=== PATIENT | male | born 1970 | race Two or more races ===

== ENCOUNTER 2020-02-13 20:13 | Inpatient (IN) | payer MEDICAID, OTHER ==
[~2020-02-13] VITALS: Ht 175.3 cm; Wt 147.8 kg
[2020-02-13] MEDS ORDERED: levoFLOXacin 750MG 150 ML IV ONE (21:00)
[2020-02-13] MEDS ORDERED: methylPREDNISolone SOD SUCC 125 MG/2 ML VL IV ONE (21:00)
[2020-02-13 22:19] LABS: Basophils # (auto) 0 10 ^3/uL (0-0.2); Basophils % (auto) 0.1 % (0.0-2.0); Eosinophils # (auto) 0 10 ^3/uL (0-0.8); Hematocrit 43.9 % (41.0-53.0); Hemoglobin 15.3 g/dL (13.5-17.5); Lymphocytes # (auto) 0.7 10 ^3/uL (0.4-5.4); Lymphocytes % (auto) 9.9 % (10.0-50.0); Mean Corpuscular Hemoglobin 28.8 pg (28.0-32.0); Mean Corpuscular Hgb Conc. 34.8 g/dL (32.0-36.0); Mean Corpuscular Volume 82.6 fL (80.0-100.0); Monocytes # (auto) 0.5 10 ^3/uL (0-1.3); Monocytes % (auto) 7.5 % (0.0-12.0); Neutrophils # (auto) 5.6 10 ^3/uL (1.6-8.6); Neutrophils % (auto) 82.5 % (37.0-80.0); Nucleated Red Blood Cells % 0.1 %; Platelet Count (auto) 174 10^3/uL (140-450); Red Blood Cells 5.31 10^6/uL (4.5-5.90); Red Cell Distribution Width 13.1 % (11.8-14.3); White Blood Cell 6.8 10^3/uL (4.4-10.8)
[2020-02-13 22:39] LABS: Anion Gap 10 (5-15); BUN/Creatinine Ratio 12.1; Blood Urea Nitrogen 11 mg/dL (7-18); Calcium 8.2 mg/dL (8.5-10.1); Carbon Dioxide 29 mmol/L (21-32); Chloride 87 mmol/L (98-107); GFR African American 115 mL/min; GFR Non-African American 95 mL/min; Glucose 114 mg/dL (74-106); Potassium 3.7 mmol/L (3.5-5.1); Sodium 126 mmol/L (136-145)
[2020-02-13 22:44] LABS: Alanine Aminotransferase 59 U/L (16-61); Alkaline Phosphatase 50 U/L (45-117); Aspartate Aminotransferase 83 U/L (15-37); Bilirubin, Total 0.7 mg/dL (0.2-1.0); Total Protein 8.3 g/dL (6.4-8.2)
[2020-02-13 22:52] LABS: INR 1.01 (0.9-1.15); Partial Thromboplastin Time 29.3 sec (23.0-31.2)
[2020-02-14 02:19] LABS: Urine Bacteria FEW /hpf (None Seen); Urine WBC 1 /hpf (0 - 3)
[2020-02-14 02:21] LABS: Urine Specific Gravity 1.006 (1.001-1.035)
[2020-02-14 02:22] LABS: Urine Blood 1+ /uL (Negative)
[2020-02-14] MEDS ORDERED: HYDROcodone-ACET 5/325MG TAB PO PRN (06:45)
[2020-02-14] MEDS ORDERED: MORPHINE SULF INJ 2 MG/ML SYRINGE 1ML IV PRN (06:45)
[2020-02-14] MEDS ORDERED: NITROGLYCERIN 0.4 MG SL TAB SL PRN (06:45)
[2020-02-14] MEDS ORDERED: ONDANSETRON HCL 4 MG/2 ML VIAL IV PRN (06:45)
[2020-02-14 07:42] LABS: Basophils # (auto) 0 10 ^3/uL (0-0.2); Basophils % (auto) 0.2 % (0.0-2.0); Eosinophils # (auto) 0 10 ^3/uL (0-0.8); Hematocrit 44.5 % (41.0-53.0); Hemoglobin 15.6 g/dL (13.5-17.5); Lymphocytes # (auto) 0.4 10 ^3/uL (0.4-5.4); Lymphocytes % (auto) 7.5 % (10.0-50.0); Mean Corpuscular Hemoglobin 29.3 pg (28.0-32.0); Mean Corpuscular Volume 83.6 fL (80.0-100.0); Monocytes # (auto) 0.2 10 ^3/uL (0-1.3); Monocytes % (auto) 3.6 % (0.0-12.0); Neutrophils # (auto) 4.5 10 ^3/uL (1.6-8.6); Neutrophils % (auto) 88.7 % (37.0-80.0); Nucleated Red Blood Cells % 0.3 %; Platelet Count (auto) 188 10^3/uL (140-450); Red Blood Cells 5.33 10^6/uL (4.5-5.90); White Blood Cell 5.1 10^3/uL (4.4-10.8)
[2020-02-14 08:08] LABS: Albumin 2.7 g/dL (3.4-5.0); Calcium 9.1 mg/dL (8.5-10.1)
[2020-02-14 08:16] LABS: BUN/Creatinine Ratio 15.9; Bilirubin, Total 0.7 mg/dL (0.2-1.0)
[2020-02-14] MEDS: ALBUTEROL SULF HFA 90MCG INH 200DOSE IN PRN ×2 (10:00→20:45)
[2020-02-14] MEDS: BUDESONIDE (INHALATION) 180 MCG IH IN SCH ×2 (10:00→19:08)
[2020-02-14] MEDS: PANTOPRAZOLE 40 MG/10 ML VIAL INJ IV SCH (12:13)
[2020-02-14] MEDS: DexAMETHasone SOD PHOS 10MG/1ML VIAL INJ IV SCH (12:13)
[2020-02-14] MEDS: CHOLECALCIFEROL (VITD3) 2,000 UNIT CAP/TAB PO SCH (12:14)
[2020-02-14] MEDS: MULTIPLE VITAMIN TAB PO SCH (12:14)
[2020-02-14] MEDS: DOXYCYCLINE 100MG/250ML 250 ML IV SCH ×2 (12:14→21:31)
[2020-02-14] MEDS: ZINC SULFATE 220mg CAP or TAB PO SCH (12:14)
[2020-02-14] MEDS: ENOXAPARIN SOD 40 MG/0.4 ML SYRINGE SC SCH (12:15)
[2020-02-14] MEDS: ASCORBIC ACID 1,000 MG TAB PO SCH (12:16)
[2020-02-14] MEDS: SODIUM CHLOR 0.9% PF (SALINE LOCK) 10ML VIAL/SYR IV SCH ×2 (14:16→21:31)
[2020-02-14 19:00] VITALS: BP 148/59
[2020-02-14 22:42] VITALS: BP 148/59
[2020-02-15 05:19] VITALS: BP 105/61
[2020-02-15] MEDS: SODIUM CHLOR 0.9% PF (SALINE LOCK) 10ML VIAL/SYR IV SCH ×3 (05:34→21:07)
[2020-02-15 06:13] LABS: Basophils # (auto) 0 10 ^3/uL (0-0.2); Eosinophils # (auto) 0 10 ^3/uL (0-0.8); Hematocrit 43.8 % (41.0-53.0); Hemoglobin 15.5 g/dL (13.5-17.5); Lymphocytes # (auto) 0.6 10 ^3/uL (0.4-5.4); Lymphocytes % (auto) 5.8 % (10.0-50.0); Mean Corpuscular Hemoglobin 29.7 pg (28.0-32.0); Mean Corpuscular Hgb Conc. 35.3 g/dL (32.0-36.0); Mean Corpuscular Volume 84.1 fL (80.0-100.0); Monocytes # (auto) 0.8 10 ^3/uL (0-1.3); Monocytes % (auto) 7.5 % (0.0-12.0); Neutrophils % (auto) 86.7 % (37.0-80.0); Platelet Count (auto) 256 10^3/uL (140-450); Red Blood Cells 5.21 10^6/uL (4.5-5.90); Red Cell Distribution Width 13.1 % (11.8-14.3); White Blood Cell 10.4 10^3/uL (4.4-10.8)
[2020-02-15 06:27] LABS: Potassium 3.7 mmol/L (3.5-5.1)
[2020-02-15] MEDS: BUDESONIDE (INHALATION) 180 MCG IH IN SCH ×2 (06:38→22:10)
[2020-02-15 06:40] LABS: Albumin 2.6 g/dL (3.4-5.0); BUN/Creatinine Ratio 24.3; Bilirubin, Total 0.5 mg/dL (0.2-1.0); Calcium 8.5 mg/dL (8.5-10.1); Total Protein 7.5 g/dL (6.4-8.2)
[2020-02-15 08:52] VITALS: BP 109/64
[2020-02-15] MEDS ORDERED: REMDESIVIR PER PHARMACY IV SCH (10:00)
[2020-02-15] MEDS: FUROSEMIDE 40 MG/4 ML VIAL IV SCH (11:30)
[2020-02-15] MEDS: PANTOPRAZOLE 40 MG/10 ML VIAL INJ IV SCH (11:30)
[2020-02-15] MEDS: ASCORBIC ACID 1,000 MG TAB PO SCH (11:31)
[2020-02-15] MEDS: ZINC SULFATE 220mg CAP or TAB PO SCH (11:31)
[2020-02-15] MEDS: POTASSIUM CHL 20 Meq TABLET PO SCH (11:31)
[2020-02-15] MEDS: DOXYCYCLINE 100MG/250ML 250 ML IV SCH ×2 (11:31→21:07)
[2020-02-15] MEDS: MULTIPLE VITAMIN TAB PO SCH (11:31)
[2020-02-15] MEDS: DexAMETHasone SOD PHOS 10MG/1ML VIAL INJ IV SCH (11:32)
[2020-02-15] MEDS: ENOXAPARIN SOD 40 MG/0.4 ML SYRINGE SC SCH (11:32)
[2020-02-15] MEDS: CHOLECALCIFEROL (VITD3) 2,000 UNIT CAP/TAB PO SCH (11:32)
[2020-02-15 12:27] VITALS: BP 114/76
[2020-02-15] MEDS: ALBUTEROL SULF HFA 90MCG INH 200DOSE IN PRN ×2 (14:13→22:10)
[2020-02-15] MEDS ORDERED: REMDESIVIR 200 MG in NS 210ml LOADING DOSE ADULT IV ONE (17:00)
[2020-02-15 17:10] VITALS: BP 147/53
[2020-02-15 20:00] VITALS: BP 109/62
[2020-02-15 23:33] VITALS: BP 109/62
[2020-02-16] VITALS (8 sets, daily range): BP systolic 100–154; BP diastolic 51–78
[2020-02-16] MEDS: SODIUM CHLOR 0.9% PF (SALINE LOCK) 10ML VIAL/SYR IV SCH ×3 (06:00→21:32)
[2020-02-16] MEDS: BUDESONIDE (INHALATION) 180 MCG IH IN SCH ×2 (06:34→19:10)
[2020-02-16] MEDS: ENOXAPARIN SOD 40 MG/0.4 ML SYRINGE SC SCH (10:00)
[2020-02-16] MEDS: DOXYCYCLINE 100MG/250ML 250 ML IV SCH ×2 (10:20→21:32)
[2020-02-16] MEDS: DexAMETHasone SOD PHOS 10MG/1ML VIAL INJ IV SCH (10:20)
[2020-02-16] MEDS: FUROSEMIDE 40 MG/4 ML VIAL IV SCH (10:20)
[2020-02-16] MEDS: PANTOPRAZOLE 40 MG/10 ML VIAL INJ IV SCH (10:20)
[2020-02-16] MEDS: CHOLECALCIFEROL (VITD3) 2,000 UNIT CAP/TAB PO SCH (10:21)
[2020-02-16] MEDS: ZINC SULFATE 220mg CAP or TAB PO SCH (10:21)
[2020-02-16] MEDS: ASCORBIC ACID 1,000 MG TAB PO SCH (10:21)
[2020-02-16] MEDS: MULTIPLE VITAMIN TAB PO SCH (10:21)
[2020-02-16] MEDS: POTASSIUM CHL 20 Meq TABLET PO SCH (10:21)
[2020-02-16] MEDS ORDERED: hydrALAZINE HCL 10 MG TAB PO PRN (10:45)
[2020-02-16] MEDS: ALBUTEROL SULF HFA 90MCG INH 200DOSE IN PRN (14:29)
[2020-02-16] MEDS: REMDESIVIR 100 MG in SODIUM CHL 0.9% 250 ML IV SCH (18:16)
[2020-02-16] MEDS: DOCUSATE SOD 100 MG CAP PO PRN (21:32)
[2020-02-16] MEDS ORDERED: TEMAZEPAM 15 MG CAP PO ONE (22:45)
[2020-02-17] MEDS: ALBUTEROL SULF HFA 90MCG INH 200DOSE IN PRN ×2 (00:49→07:15)
[2020-02-17 05:00] VITALS: BP 98/40
[2020-02-17] MEDS: SODIUM CHLOR 0.9% PF (SALINE LOCK) 10ML VIAL/SYR IV SCH ×3 (06:04→21:19)
[2020-02-17 07:02] LABS: Potassium 4.1 mmol/L (3.5-5.1)
[2020-02-17] MEDS: BUDESONIDE (INHALATION) 180 MCG IH IN SCH ×2 (07:15→22:00)
[2020-02-17 07:22] LABS: Albumin 2.7 g/dL (3.4-5.0); Bilirubin, Total 1.1 mg/dL (0.2-1.0); Calcium 8.6 mg/dL (8.5-10.1); Total Protein 7.6 g/dL (6.4-8.2)
[2020-02-17 08:53] VITALS: BP 125/83
[2020-02-17] MEDS: CHOLECALCIFEROL (VITD3) 2,000 UNIT CAP/TAB PO SCH (09:51)
[2020-02-17] MEDS: ASCORBIC ACID 1,000 MG TAB PO SCH (09:52)
[2020-02-17] MEDS: ZINC SULFATE 220mg CAP or TAB PO SCH (09:52)
[2020-02-17] MEDS: POTASSIUM CHL 20 Meq TABLET PO SCH (09:52)
[2020-02-17] MEDS: MULTIPLE VITAMIN TAB PO SCH (09:52)
[2020-02-17] MEDS: DexAMETHasone SOD PHOS 10MG/1ML VIAL INJ IV SCH (09:52)
[2020-02-17] MEDS: PANTOPRAZOLE 40 MG/10 ML VIAL INJ IV SCH (09:52)
[2020-02-17] MEDS: DOXYCYCLINE 100MG/250ML 250 ML IV SCH ×2 (09:53→21:19)
[2020-02-17] MEDS: ENOXAPARIN SOD 40 MG/0.4 ML SYRINGE SC SCH (09:53)
[2020-02-17] MEDS: FUROSEMIDE 40 MG/4 ML VIAL IV SCH (09:53)
[2020-02-17 13:00] VITALS: BP 127/67
[2020-02-17] MEDS: REMDESIVIR 100 MG in SODIUM CHL 0.9% 250 ML IV SCH (16:37)
[2020-02-17 17:00] VITALS: BP 123/70
[2020-02-17 20:00] VITALS: BP 114/50
[2020-02-17 21:19] VITALS: BP 114/50
[2020-02-17] MEDS: DOCUSATE SOD 100 MG CAP PO PRN (21:19)
[2020-02-17] MEDS: TEMAZEPAM 15 MG CAP PO PRN (21:19)
[2020-02-18 05:00] VITALS: BP 113/68
[2020-02-18] MEDS: ACETAMINOPHEN 500 MG TAB PO PRN (05:19)
[2020-02-18] MEDS: SODIUM CHLOR 0.9% PF (SALINE LOCK) 10ML VIAL/SYR IV SCH ×3 (05:19→21:44)
[2020-02-18 05:53] LABS: Basophils # (auto) 0 10 ^3/uL (0-0.2); Basophils % (auto) 0.1 % (0.0-2.0); Eosinophils # (auto) 0.1 10 ^3/uL (0-0.8); Eosinophils % (auto) 1.1 % (0.0-7.0); Hematocrit 46.4 % (41.0-53.0); Hemoglobin 15.8 g/dL (13.5-17.5); Lymphocytes # (auto) 0.7 10 ^3/uL (0.4-5.4); Lymphocytes % (auto) 5.7 % (10.0-50.0); Mean Corpuscular Hemoglobin 28.9 pg (28.0-32.0); Mean Corpuscular Volume 84.9 fL (80.0-100.0); Monocytes # (auto) 0.4 10 ^3/uL (0-1.3); Monocytes % (auto) 3.8 % (0.0-12.0); Neutrophils # (auto) 10.4 10 ^3/uL (1.6-8.6); Neutrophils % (auto) 89.3 % (37.0-80.0); Nucleated Red Blood Cells % 0.3 %; Platelet Count (auto) 354 10^3/uL (140-450); Red Blood Cells 5.46 10^6/uL (4.5-5.90); Red Cell Distribution Width 13.1 % (11.8-14.3); White Blood Cell 11.6 10^3/uL (4.4-10.8)
[2020-02-18 06:10] LABS: Albumin 2.6 g/dL (3.4-5.0); Calcium 8.7 mg/dL (8.5-10.1)
[2020-02-18 06:28] LABS: BUN/Creatinine Ratio 21.6; Bilirubin, Total 0.9 mg/dL (0.2-1.0); CRP High Sensitivity 12.5 mg/dL (< 0.3); Total Protein 7.7 g/dL (6.4-8.2)
[2020-02-18] MEDS: BUDESONIDE (INHALATION) 180 MCG IH IN SCH ×2 (07:20→19:18)
[2020-02-18] MEDS: ALBUTEROL SULF HFA 90MCG INH 200DOSE IN PRN ×2 (07:20→19:18)
[2020-02-18 09:00] VITALS: BP 103/61
[2020-02-18] MEDS ORDERED: diphenhdrAMINE HCL 50 MG/1 ML VL IV PRN (10:00)
[2020-02-18] MEDS: FUROSEMIDE 40 MG/4 ML VIAL IV SCH (11:05)
[2020-02-18] MEDS: DexAMETHasone SOD PHOS 10MG/1ML VIAL INJ IV SCH (11:05)
[2020-02-18] MEDS: DOXYCYCLINE 100MG/250ML 250 ML IV SCH ×2 (11:06→21:44)
[2020-02-18] MEDS: ZINC SULFATE 220mg CAP or TAB PO SCH (11:06)
[2020-02-18] MEDS: PANTOPRAZOLE 40 MG/10 ML VIAL INJ IV SCH (11:06)
[2020-02-18] MEDS: MULTIPLE VITAMIN TAB PO SCH (11:08)
[2020-02-18] MEDS: POTASSIUM CHL 20 Meq TABLET PO SCH (11:08)
[2020-02-18] MEDS: ASCORBIC ACID 1,000 MG TAB PO SCH (11:09)
[2020-02-18] MEDS: CHOLECALCIFEROL (VITD3) 2,000 UNIT CAP/TAB PO SCH (11:09)
[2020-02-18] MEDS: ENOXAPARIN SOD 40 MG/0.4 ML SYRINGE SC SCH (11:10)
[2020-02-18 13:00] VITALS: BP 152/77
[2020-02-18] MEDS: REMDESIVIR 100 MG in SODIUM CHL 0.9% 250 ML IV SCH (16:42)
[2020-02-18 16:54] VITALS: BP 100/63
[2020-02-18 21:00] VITALS: BP 117/64
[2020-02-19] MEDS: TEMAZEPAM 15 MG CAP PO PRN (01:51)
[2020-02-19] MEDS: SODIUM CHLOR 0.9% PF (SALINE LOCK) 10ML VIAL/SYR IV SCH ×3 (06:25→21:54)
[2020-02-19] MEDS: LORazepam 2MG/ML-1ML VIAL IV PRN (06:25)
[2020-02-19 09:00] VITALS: BP 115/65
[2020-02-19] MEDS: BUDESONIDE (INHALATION) 180 MCG IH IN SCH ×2 (10:00→19:22)
[2020-02-19] MEDS: FUROSEMIDE 40 MG/4 ML VIAL IV SCH (10:52)
[2020-02-19] MEDS: DexAMETHasone SOD PHOS 10MG/1ML VIAL INJ IV SCH (10:53)
[2020-02-19] MEDS: MULTIPLE VITAMIN TAB PO SCH (10:53)
[2020-02-19] MEDS: PANTOPRAZOLE 40 MG/10 ML VIAL INJ IV SCH (10:53)
[2020-02-19] MEDS: ZINC SULFATE 220mg CAP or TAB PO SCH (10:53)
[2020-02-19] MEDS: ENOXAPARIN SOD 40 MG/0.4 ML SYRINGE SC SCH (10:54)
[2020-02-19] MEDS: CHOLECALCIFEROL (VITD3) 2,000 UNIT CAP/TAB PO SCH (10:54)
[2020-02-19] MEDS: POTASSIUM CHL 20 Meq TABLET PO SCH (10:54)
[2020-02-19] MEDS: ASCORBIC ACID 1,000 MG TAB PO SCH (10:54)
[2020-02-19] MEDS ORDERED: IOHEXOL 350 MG/ML 100ML IJ ONE (12:45)
[2020-02-19 13:00] VITALS: BP 111/63
[2020-02-19 17:00] VITALS: BP 130/71
[2020-02-19] MEDS: REMDESIVIR 100 MG in SODIUM CHL 0.9% 250 ML IV SCH (17:23)
[2020-02-19] MEDS: ALBUTEROL SULF HFA 90MCG INH 200DOSE IN PRN (19:22)
[2020-02-19 22:00] VITALS: BP 132/77
[2020-02-20 05:00] VITALS: BP 111/50
[2020-02-20] MEDS: SODIUM CHLOR 0.9% PF (SALINE LOCK) 10ML VIAL/SYR IV SCH ×3 (06:09→21:17)
[2020-02-20] MEDS: ALBUTEROL SULF HFA 90MCG INH 200DOSE IN PRN (06:28)
[2020-02-20] MEDS: BUDESONIDE (INHALATION) 180 MCG IH IN SCH ×2 (06:28→21:30)
[2020-02-20] MEDS: DexAMETHasone SOD PHOS 10MG/1ML VIAL INJ IV SCH (09:40)
[2020-02-20] MEDS: FUROSEMIDE 40 MG/4 ML VIAL IV SCH (09:40)
[2020-02-20] MEDS: POTASSIUM CHL 20 Meq TABLET PO SCH (09:40)
[2020-02-20] MEDS: PANTOPRAZOLE 40 MG/10 ML VIAL INJ IV SCH (09:40)
[2020-02-20] MEDS: ZINC SULFATE 220mg CAP or TAB PO SCH (09:40)
[2020-02-20] MEDS: MULTIPLE VITAMIN TAB PO SCH (09:40)
[2020-02-20] MEDS: ENOXAPARIN SOD 40 MG/0.4 ML SYRINGE SC SCH (09:41)
[2020-02-20] MEDS: CHOLECALCIFEROL (VITD3) 2,000 UNIT CAP/TAB PO SCH (09:41)
[2020-02-20] MEDS: ASCORBIC ACID 1,000 MG TAB PO SCH (09:41)
[2020-02-20 09:43] LABS: Basophils # (auto) 0 10 ^3/uL (0-0.2); Basophils % (auto) 0.3 % (0.0-2.0); Eosinophils # (auto) 0.2 10 ^3/uL (0-0.8); Eosinophils % (auto) 1.8 % (0.0-7.0); Hematocrit 43.8 % (41.0-53.0); Hemoglobin 15.1 g/dL (13.5-17.5); Lymphocytes # (auto) 0.4 10 ^3/uL (0.4-5.4); Lymphocytes % (auto) 3.7 % (10.0-50.0); Mean Corpuscular Hemoglobin 29.5 pg (28.0-32.0); Mean Corpuscular Hgb Conc. 34.5 g/dL (32.0-36.0); Mean Corpuscular Volume 85.3 fL (80.0-100.0); Monocytes # (auto) 0.3 10 ^3/uL (0-1.3); Monocytes % (auto) 2.9 % (0.0-12.0); Neutrophils % (auto) 91.3 % (37.0-80.0); Platelet Count (auto) 370 10^3/uL (140-450); Red Blood Cells 5.13 10^6/uL (4.5-5.90); Red Cell Distribution Width 13.5 % (11.8-14.3); White Blood Cell 9.9 10^3/uL (4.4-10.8)
[2020-02-20] MEDS: ENOXAPARIN SOD 100 MG/1 ML SYRINGE SC SCH ×2 (10:00→22:55)
[2020-02-20 10:07] LABS: Albumin 2.3 g/dL (3.4-5.0); BUN/Creatinine Ratio 21.6; Calcium 8.4 mg/dL (8.5-10.1); Potassium 4.1 mmol/L (3.5-5.1)
[2020-02-20 10:11] LABS: Bilirubin, Total 0.7 mg/dL (0.2-1.0); Total Protein 7.2 g/dL (6.4-8.2)
[2020-02-20] MEDS ORDERED: ENOXAPARIN SOD 60 MG/0.6 ML SYRINGE SC ONE (11:15)
[2020-02-20 12:00] VITALS: BP 102/59
[2020-02-20 15:06] VITALS: BP 136/76
[2020-02-20 15:33] VITALS: BP 117/62
[2020-02-20 17:00] VITALS: BP 116/69
[2020-02-20 21:55] VITALS: BP 134/70
[2020-02-21] MEDS: ALBUTEROL SULF HFA 90MCG INH 200DOSE IN PRN ×2 (01:15→23:34)
[2020-02-21 05:00] VITALS: BP 110/70
[2020-02-21] MEDS: SODIUM CHLOR 0.9% PF (SALINE LOCK) 10ML VIAL/SYR IV SCH ×3 (05:31→22:00)
[2020-02-21] MEDS: BUDESONIDE (INHALATION) 180 MCG IH IN SCH ×2 (07:00→22:10)
[2020-02-21 09:00] VITALS: BP 101/62
[2020-02-21] MEDS: DexAMETHasone SOD PHOS 10MG/1ML VIAL INJ IV SCH (10:06)
[2020-02-21] MEDS: PANTOPRAZOLE 40 MG/10 ML VIAL INJ IV SCH (10:07)
[2020-02-21] MEDS: ZINC SULFATE 220mg CAP or TAB PO SCH (10:07)
[2020-02-21] MEDS: CHOLECALCIFEROL (VITD3) 2,000 UNIT CAP/TAB PO SCH (10:07)
[2020-02-21] MEDS: ASCORBIC ACID 1,000 MG TAB PO SCH (10:07)
[2020-02-21] MEDS: POTASSIUM CHL 20 Meq TABLET PO SCH (10:07)
[2020-02-21] MEDS: MULTIPLE VITAMIN TAB PO SCH (10:07)
[2020-02-21] MEDS: FUROSEMIDE 40 MG/4 ML VIAL IV SCH (10:07)
[2020-02-21] MEDS: ENOXAPARIN SOD 100 MG/1 ML SYRINGE SC SCH ×2 (10:08→23:14)
[2020-02-21] MEDS: DOCUSATE SOD 100 MG CAP PO PRN (11:06)
[2020-02-21 13:00] VITALS: BP 90/54
[2020-02-21 17:00] VITALS: BP 125/77
[2020-02-21 22:00] VITALS: BP 111/66
[2020-02-22 05:00] VITALS: BP 99/59
[2020-02-22] MEDS: SODIUM CHLOR 0.9% PF (SALINE LOCK) 10ML VIAL/SYR IV SCH ×3 (05:31→22:09)
[2020-02-22] MEDS: BUDESONIDE (INHALATION) 180 MCG IH IN SCH ×2 (07:05→22:00)
[2020-02-22] MEDS: ALBUTEROL SULF HFA 90MCG INH 200DOSE IN PRN ×2 (07:05→19:26)
[2020-02-22 08:00] VITALS: BP 109/71
[2020-02-22] MEDS: PANTOPRAZOLE 40 MG/10 ML VIAL INJ IV SCH (10:13)
[2020-02-22] MEDS: FUROSEMIDE 40 MG/4 ML VIAL IV SCH (10:13)
[2020-02-22] MEDS: DexAMETHasone SOD PHOS 10MG/1ML VIAL INJ IV SCH (10:13)
[2020-02-22] MEDS: ZINC SULFATE 220mg CAP or TAB PO SCH (10:14)
[2020-02-22] MEDS: MULTIPLE VITAMIN TAB PO SCH (10:14)
[2020-02-22] MEDS: POTASSIUM CHL 20 Meq TABLET PO SCH (10:14)
[2020-02-22] MEDS: ASCORBIC ACID 1,000 MG TAB PO SCH (10:14)
[2020-02-22] MEDS: CHOLECALCIFEROL (VITD3) 2,000 UNIT CAP/TAB PO SCH (10:14)
[2020-02-22] MEDS: ENOXAPARIN SOD 100 MG/1 ML SYRINGE SC SCH ×2 (10:15→22:25)
[2020-02-22] MEDS: DOCUSATE SOD 100 MG CAP PO PRN (10:57)
[2020-02-22 13:00] VITALS: BP 117/79
[2020-02-22 14:16] LABS: Basophils # (auto) 0 10 ^3/uL (0-0.2); Basophils % (auto) 0.1 % (0.0-2.0); Monocytes # (auto) 0.4 10 ^3/uL (0-1.3); Red Cell Distribution Width 13.3 % (11.8-14.3)
[2020-02-22 14:17] LABS: Eosinophils # (auto) 0 10 ^3/uL (0-0.8); Eosinophils % (auto) 0.3 % (0.0-7.0); Hematocrit 49.8 % (41.0-53.0); Hemoglobin 16.9 g/dL (13.5-17.5); Lymphocytes # (auto) 0.5 10 ^3/uL (0.4-5.4); Lymphocytes % (auto) 4.2 % (10.0-50.0); Mean Corpuscular Volume 85.2 fL (80.0-100.0); Monocytes % (auto) 2.8 % (0.0-12.0); Neutrophils # (auto) 11.8 10 ^3/uL (1.6-8.6); Neutrophils % (auto) 92.6 % (37.0-80.0); Red Blood Cells 5.84 10^6/uL (4.5-5.90); White Blood Cell 12.7 10^3/uL (4.4-10.8)
[2020-02-22 14:34] LABS: Potassium 4.5 mmol/L (3.5-5.1)
[2020-02-22 14:35] LABS: Calcium 9.3 mg/dL (8.5-10.1)
[2020-02-22 14:42] LABS: Platelet Count (auto) 497 10^3/uL (140-450)
[2020-02-22 17:00] VITALS: BP 108/64
[2020-02-22 22:00] VITALS: BP 106/76
[2020-02-23] MEDS: TEMAZEPAM 15 MG CAP PO PRN
[2020-02-23 05:00] VITALS: BP 99/73
[2020-02-23] MEDS: SODIUM CHLOR 0.9% PF (SALINE LOCK) 10ML VIAL/SYR IV SCH ×3 (06:01→23:20)
[2020-02-23] MEDS: BUDESONIDE (INHALATION) 180 MCG IH IN SCH ×2 (06:32→20:36)
[2020-02-23] MEDS: ALBUTEROL SULF HFA 90MCG INH 200DOSE IN PRN ×2 (06:32→20:36)
[2020-02-23 09:00] VITALS: BP 106/81
[2020-02-23] MEDS: PANTOPRAZOLE 40 MG/10 ML VIAL INJ IV SCH (09:58)
[2020-02-23] MEDS: POTASSIUM CHL 20 Meq TABLET PO SCH (09:59)
[2020-02-23] MEDS: DexAMETHasone SOD PHOS 10MG/1ML VIAL INJ IV SCH (09:59)
[2020-02-23] MEDS: ENOXAPARIN SOD 100 MG/1 ML SYRINGE SC SCH (09:59)
[2020-02-23] MEDS: MULTIPLE VITAMIN TAB PO SCH (10:00)
[2020-02-23] MEDS: ASCORBIC ACID 1,000 MG TAB PO SCH (10:00)
[2020-02-23] MEDS: ZINC SULFATE 220mg CAP or TAB PO SCH (10:00)
[2020-02-23] MEDS: CHOLECALCIFEROL (VITD3) 2,000 UNIT CAP/TAB PO SCH (10:01)
[2020-02-23] MEDS: FUROSEMIDE 40 MG/4 ML VIAL IV SCH (10:01)
[2020-02-23] MEDS: DOCUSATE SOD 100 MG CAP PO PRN (10:10)
[2020-02-23 13:00] VITALS: BP 111/64
[2020-02-23 17:00] VITALS: BP 108/62
[2020-02-23] MEDS: ENOXAPARIN SOD 120 MG/0.8 ML SYRINGE SC SCH (23:23)
[2020-02-24 05:00] VITALS: BP 131/73
[2020-02-24] MEDS: SODIUM CHLOR 0.9% PF (SALINE LOCK) 10ML VIAL/SYR IV SCH ×3 (06:22→21:23)
[2020-02-24] MEDS: ALBUTEROL SULF HFA 90MCG INH 200DOSE IN PRN ×2 (07:55→21:28)
[2020-02-24] MEDS: BUDESONIDE (INHALATION) 180 MCG IH IN SCH ×2 (07:55→21:28)
[2020-02-24] MEDS: FUROSEMIDE 40 MG/4 ML VIAL IV SCH (10:06)
[2020-02-24] MEDS: PANTOPRAZOLE 40 MG/10 ML VIAL INJ IV SCH (10:08)
[2020-02-24] MEDS: LACTULOSE 20Gm/30ML SOLN PO SCH (10:09)
[2020-02-24] MEDS: DexAMETHasone SOD PHOS 10MG/1ML VIAL INJ IV SCH (10:11)
[2020-02-24] MEDS: ZINC SULFATE 220mg CAP or TAB PO SCH (10:13)
[2020-02-24] MEDS: POTASSIUM CHL 20 Meq TABLET PO SCH (10:14)
[2020-02-24] MEDS: MULTIPLE VITAMIN TAB PO SCH (10:15)
[2020-02-24] MEDS: ASCORBIC ACID 1,000 MG TAB PO SCH (10:16)
[2020-02-24] MEDS: CHOLECALCIFEROL (VITD3) 2,000 UNIT CAP/TAB PO SCH (10:19)
[2020-02-24] MEDS: ENOXAPARIN SOD 120 MG/0.8 ML SYRINGE SC SCH ×2 (10:22→21:23)
[2020-02-24] MEDS: TEMAZEPAM 15 MG CAP PO PRN (21:23)
[2020-02-25 06:01] VITALS: BP 100/65
[2020-02-25] MEDS: SODIUM CHLOR 0.9% PF (SALINE LOCK) 10ML VIAL/SYR IV SCH ×3 (06:09→21:33)
[2020-02-25 06:11] LABS: Basophils # (auto) 0 10 ^3/uL (0-0.2); Basophils % (auto) 0.2 % (0.0-2.0); Eosinophils # (auto) 0 10 ^3/uL (0-0.8); Eosinophils % (auto) 0.1 % (0.0-7.0); Lymphocytes # (auto) 1.2 10 ^3/uL (0.4-5.4); Mean Corpuscular Hgb Conc. 34.7 g/dL (32.0-36.0); Monocytes # (auto) 0.7 10 ^3/uL (0-1.3); Monocytes % (auto) 5.3 % (0.0-12.0)
[2020-02-25 06:14] LABS: Hematocrit 51.3 % (41.0-53.0); Hemoglobin 17.8 g/dL (13.5-17.5); Lymphocytes % (auto) 9.4 % (10.0-50.0); Mean Corpuscular Hemoglobin 29.4 pg (28.0-32.0); Mean Corpuscular Volume 84.6 fL (80.0-100.0); Neutrophils # (auto) 10.6 10 ^3/uL (1.6-8.6); Nucleated Red Blood Cells % 0.4 %; Platelet Count (auto) 441 10^3/uL (140-450); Red Blood Cells 6.06 10^6/uL (4.5-5.90); Red Cell Distribution Width 13.4 % (11.8-14.3); White Blood Cell 12.5 10^3/uL (4.4-10.8)
[2020-02-25 06:26] LABS: Potassium 4.5 mmol/L (3.5-5.1)
[2020-02-25 06:34] LABS: Bilirubin, Total 0.8 mg/dL (0.2-1.0); Calcium 9.8 mg/dL (8.5-10.1); Total Protein 8.6 g/dL (6.4-8.2)
[2020-02-25 08:00] VITALS: BP 96/61
[2020-02-25] MEDS: BUDESONIDE (INHALATION) 180 MCG IH IN SCH ×2 (10:00→23:30)
[2020-02-25] MEDS: CHOLECALCIFEROL (VITD3) 2,000 UNIT CAP/TAB PO SCH (10:21)
[2020-02-25] MEDS: ENOXAPARIN SOD 120 MG/0.8 ML SYRINGE SC SCH ×2 (10:21→21:33)
[2020-02-25] MEDS: POTASSIUM CHL 20 Meq TABLET PO SCH (10:22)
[2020-02-25] MEDS: MULTIPLE VITAMIN TAB PO SCH (10:22)
[2020-02-25] MEDS: LACTULOSE 20Gm/30ML SOLN PO SCH (10:22)
[2020-02-25] MEDS: PANTOPRAZOLE 40 MG TAB PO SCH (10:22)
[2020-02-25] MEDS: ZINC SULFATE 220mg CAP or TAB PO SCH (10:22)
[2020-02-25] MEDS: ASCORBIC ACID 1,000 MG TAB PO SCH (10:22)
[2020-02-25] MEDS: FUROSEMIDE 40 MG/4 ML VIAL IV SCH (10:23)
[2020-02-25] MEDS: ALBUTEROL SULF HFA 90MCG INH 200DOSE IN PRN ×2 (10:31→23:30)
[2020-02-25 10:37] VITALS: BP 96/61
[2020-02-25 12:00] VITALS: BP 118/78
[2020-02-25] MEDS: MORPHINE SULFATE 4 MG/ML SYR/VIAL IV PRN (12:30)
[2020-02-25 17:00] VITALS: BP 110/70
[2020-02-25] MEDS: TEMAZEPAM 15 MG CAP PO PRN (21:33)
[2020-02-25 22:00] VITALS: BP 99/60
[2020-02-26] MEDS: LORazepam 2MG/ML-1ML VIAL IV PRN (03:41)
[2020-02-26] MEDS: SODIUM CHLOR 0.9% PF (SALINE LOCK) 10ML VIAL/SYR IV SCH ×3 (05:38→21:49)
[2020-02-26] MEDS: ALBUTEROL SULF HFA 90MCG INH 200DOSE IN PRN ×2 (08:00→18:59)
[2020-02-26] MEDS: BUDESONIDE (INHALATION) 180 MCG IH IN SCH ×2 (08:00→18:59)
[2020-02-26 09:00] VITALS: BP 103/65
[2020-02-26] MEDS: MORPHINE SULFATE 4 MG/ML SYR/VIAL IV PRN ×2 (09:05→21:50)
[2020-02-26] MEDS: ASCORBIC ACID 1,000 MG TAB PO SCH (10:00)
[2020-02-26] MEDS: CHOLECALCIFEROL (VITD3) 2,000 UNIT CAP/TAB PO SCH (10:00)
[2020-02-26] MEDS: POTASSIUM CHL 20 Meq TABLET PO SCH (10:19)
[2020-02-26] MEDS: LACTULOSE 20Gm/30ML SOLN PO SCH (10:19)
[2020-02-26] MEDS: ZINC SULFATE 220mg CAP or TAB PO SCH (10:21)
[2020-02-26] MEDS: MULTIPLE VITAMIN TAB PO SCH (10:21)
[2020-02-26] MEDS: PANTOPRAZOLE 40 MG TAB PO SCH (10:21)
[2020-02-26] MEDS: ENOXAPARIN SOD 120 MG/0.8 ML SYRINGE SC SCH (10:22)
[2020-02-26] MEDS: FUROSEMIDE 40 MG/4 ML VIAL IV SCH (10:23)
[2020-02-26 13:00] VITALS: BP 102/65
[2020-02-26 17:00] VITALS: BP 119/71
[2020-02-26] MEDS: ENOXAPARIN SOD 40 MG/0.4 ML SYRINGE SC SCH (21:49)
[2020-02-26 22:00] VITALS: BP 93/73
[2020-02-26] MEDS ORDERED: ENOXAPARIN SOD 120 MG/0.8 ML SYRINGE SC SCH (22:00)
[2020-02-27] MEDS: LORazepam 2MG/ML-1ML VIAL IV PRN (03:08)
[2020-02-27 05:00] VITALS: BP 107/60
[2020-02-27] MEDS: SODIUM CHLOR 0.9% PF (SALINE LOCK) 10ML VIAL/SYR IV SCH ×3 (05:45→22:14)
[2020-02-27 07:16] LABS: Basophils # (auto) 0.1 10 ^3/uL (0-0.2); Basophils % (auto) 0.4 % (0.0-2.0); Eosinophils # (auto) 0.1 10 ^3/uL (0-0.8); Eosinophils % (auto) 0.9 % (0.0-7.0); Hematocrit 47.9 % (41.0-53.0); Hemoglobin 16.5 g/dL (13.5-17.5); Lymphocytes # (auto) 1.1 10 ^3/uL (0.4-5.4); Lymphocytes % (auto) 7.8 % (10.0-50.0); Mean Corpuscular Hemoglobin 29.2 pg (28.0-32.0); Mean Corpuscular Hgb Conc. 34.4 g/dL (32.0-36.0); Mean Corpuscular Volume 84.8 fL (80.0-100.0); Neutrophils # (auto) 11.6 10 ^3/uL (1.6-8.6); Neutrophils % (auto) 83.9 % (37.0-80.0); Nucleated Red Blood Cells % 0.1 %; Platelet Count (auto) 294 10^3/uL (140-450); Red Blood Cells 5.65 10^6/uL (4.5-5.90); Red Cell Distribution Width 13.3 % (11.8-14.3); White Blood Cell 13.9 10^3/uL (4.4-10.8)
[2020-02-27 07:23] VITALS: BP 103/65
[2020-02-27 07:26] LABS: Potassium 4.1 mmol/L (3.5-5.1)
[2020-02-27 07:36] LABS: Albumin 2.8 g/dL (3.4-5.0); BUN/Creatinine Ratio 36.7; Bilirubin, Total 0.9 mg/dL (0.2-1.0); Total Protein 7.9 g/dL (6.4-8.2)
[2020-02-27 08:50] VITALS: BP 103/70
[2020-02-27] MEDS: ASCORBIC ACID 1,000 MG TAB PO SCH (10:00)
[2020-02-27] MEDS: BUDESONIDE (INHALATION) 180 MCG IH IN SCH ×2 (10:00→21:19)
[2020-02-27] MEDS: CHOLECALCIFEROL (VITD3) 2,000 UNIT CAP/TAB PO SCH (10:00)
[2020-02-27] MEDS: LACTULOSE 20Gm/30ML SOLN PO SCH (10:43)
[2020-02-27] MEDS: FUROSEMIDE 40 MG/4 ML VIAL IV SCH (10:44)
[2020-02-27] MEDS: PANTOPRAZOLE 40 MG TAB PO SCH (10:44)
[2020-02-27] MEDS: ENOXAPARIN SOD 40 MG/0.4 ML SYRINGE SC SCH ×2 (10:44→22:14)
[2020-02-27] MEDS: MULTIPLE VITAMIN TAB PO SCH (10:45)
[2020-02-27] MEDS: ZINC SULFATE 220mg CAP or TAB PO SCH (10:45)
[2020-02-27] MEDS: POTASSIUM CHL 20 Meq TABLET PO SCH (10:45)
[2020-02-27 13:00] VITALS: BP 103/69
[2020-02-27] MEDS: ALBUTEROL SULF HFA 90MCG INH 200DOSE IN PRN ×2 (13:32→23:03)
[2020-02-27 17:00] VITALS: BP 96/70
[2020-02-27 21:36] VITALS: BP 101/70
[2020-02-27] MEDS: DOCUSATE SOD 100 MG CAP PO PRN (22:15)
[2020-02-27] MEDS: TEMAZEPAM 15 MG CAP PO PRN (22:15)
[2020-02-28 05:24] VITALS: BP 93/60
[2020-02-28] MEDS: SODIUM CHLOR 0.9% PF (SALINE LOCK) 10ML VIAL/SYR IV SCH ×3 (06:00→21:44)
[2020-02-28 06:11] VITALS: BP 101/70
[2020-02-28 08:54] VITALS: BP 90/60
[2020-02-28] MEDS: ZINC SULFATE 220mg CAP or TAB PO SCH (09:16)
[2020-02-28] MEDS: LACTULOSE 20Gm/30ML SOLN PO SCH ×2 (09:16→09:30)
[2020-02-28] MEDS: PANTOPRAZOLE 40 MG TAB PO SCH (09:17)
[2020-02-28] MEDS: CHOLECALCIFEROL (VITD3) 2,000 UNIT CAP/TAB PO SCH (09:17)
[2020-02-28] MEDS: ASCORBIC ACID 1,000 MG TAB PO SCH (09:18)
[2020-02-28] MEDS: MULTIPLE VITAMIN TAB PO SCH (09:18)
[2020-02-28] MEDS: ENOXAPARIN SOD 40 MG/0.4 ML SYRINGE SC SCH ×2 (09:18→21:44)
[2020-02-28] MEDS: FUROSEMIDE 40 MG/4 ML VIAL IV SCH (09:30)
[2020-02-28] MEDS: POTASSIUM CHL 20 Meq TABLET PO SCH (09:31)
[2020-02-28 12:16] LABS: Basophils # (auto) 0 10 ^3/uL (0-0.2); Basophils % (auto) 0.3 % (0.0-2.0); Eosinophils # (auto) 0.2 10 ^3/uL (0-0.8); Eosinophils % (auto) 1.6 % (0.0-7.0); Hematocrit 44.7 % (41.0-53.0); Hemoglobin 15.4 g/dL (13.5-17.5); Lymphocytes # (auto) 0.9 10 ^3/uL (0.4-5.4); Lymphocytes % (auto) 7.4 % (10.0-50.0); Mean Corpuscular Hgb Conc. 34.4 g/dL (32.0-36.0); Mean Corpuscular Volume 84.1 fL (80.0-100.0); Monocytes # (auto) 0.9 10 ^3/uL (0-1.3); Monocytes % (auto) 8.3 % (0.0-12.0); Neutrophils # (auto) 9.4 10 ^3/uL (1.6-8.6); Neutrophils % (auto) 82.4 % (37.0-80.0); Platelet Count (auto) 230 10^3/uL (140-450); Red Blood Cells 5.31 10^6/uL (4.5-5.90); Red Cell Distribution Width 13.3 % (11.8-14.3); White Blood Cell 11.5 10^3/uL (4.4-10.8)
[2020-02-28 12:52] LABS: Potassium 3.5 mmol/L (3.5-5.1)
[2020-02-28 13:01] VITALS: BP 104/63
[2020-02-28 13:02] LABS: Albumin 2.7 g/dL (3.4-5.0); Bilirubin, Total 0.8 mg/dL (0.2-1.0); Calcium 8.8 mg/dL (8.5-10.1); Total Protein 7.9 g/dL (6.4-8.2)
[2020-02-28 16:37] VITALS: BP 93/56
[2020-02-28] MEDS: LORazepam 2MG/ML-1ML VIAL IV PRN (18:29)
[2020-02-28] MEDS: BUDESONIDE (INHALATION) 180 MCG IH IN SCH (19:02)
[2020-02-28] MEDS: ALBUTEROL SULF HFA 90MCG INH 200DOSE IN PRN (19:02)
[2020-02-28 21:00] VITALS: BP 147/67
[2020-02-29] MEDS: LORazepam 2MG/ML-1ML VIAL IV PRN ×3 (04:15→22:56)
[2020-02-29 05:00] VITALS: BP 116/82
[2020-02-29] MEDS: SODIUM CHLOR 0.9% PF (SALINE LOCK) 10ML VIAL/SYR IV SCH ×3 (06:12→22:54)
[2020-02-29] MEDS: ALBUTEROL SULF HFA 90MCG INH 200DOSE IN PRN (06:28)
[2020-02-29] MEDS: BUDESONIDE (INHALATION) 180 MCG IH IN SCH ×2 (06:28→20:15)
[2020-02-29 09:00] VITALS: BP 93/72
[2020-02-29] MEDS: LACTULOSE 20Gm/30ML SOLN PO SCH (10:40)
[2020-02-29] MEDS: POTASSIUM CHL 20 Meq TABLET PO SCH (10:40)
[2020-02-29] MEDS: FUROSEMIDE 40 MG/4 ML VIAL IV SCH (10:40)
[2020-02-29] MEDS: ZINC SULFATE 220mg CAP or TAB PO SCH (10:40)
[2020-02-29] MEDS: ASCORBIC ACID 1,000 MG TAB PO SCH (10:41)
[2020-02-29] MEDS: MULTIPLE VITAMIN TAB PO SCH (10:41)
[2020-02-29] MEDS: PANTOPRAZOLE 40 MG TAB PO SCH (10:41)
[2020-02-29] MEDS: CHOLECALCIFEROL (VITD3) 2,000 UNIT CAP/TAB PO SCH (10:42)
[2020-02-29 13:00] VITALS: BP 113/72
[2020-02-29] MEDS: ENOXAPARIN SOD 40 MG/0.4 ML SYRINGE SC SCH ×2 (13:25→22:54)
[2020-02-29 15:22] VITALS: BP 112/71
[2020-02-29 17:00] VITALS: BP 99/61
[2020-02-29] MEDS: ACETAMINOPHEN 500 MG TAB PO PRN (18:36)
[2020-02-29] MEDS: guaiFENesin-DM 100/10mg/5ml SYR PO PRN (23:07)
[2020-03-01] VITALS (29 sets, daily range): BP systolic 61–146; BP diastolic 26–102
[2020-03-01] MEDS: ALBUTEROL SULF HFA 90MCG INH 200DOSE IN PRN (03:13)
[2020-03-01] MEDS: LORazepam 2MG/ML-1ML VIAL IV PRN ×2 (04:14→11:13)
[2020-03-01] MEDS: SODIUM CHLOR 0.9% PF (SALINE LOCK) 10ML VIAL/SYR IV SCH ×3 (04:14→22:12)
[2020-03-01] MEDS: BUDESONIDE (INHALATION) 180 MCG IH IN SCH (10:00)
[2020-03-01] MEDS: LACTULOSE 20Gm/30ML SOLN PO SCH (10:00)
[2020-03-01] MEDS: ZINC SULFATE 220mg CAP or TAB PO SCH (11:10)
[2020-03-01] MEDS: ASCORBIC ACID 1,000 MG TAB PO SCH (11:11)
[2020-03-01] MEDS: FUROSEMIDE 40 MG/4 ML VIAL IV SCH (11:11)
[2020-03-01] MEDS: MULTIPLE VITAMIN TAB PO SCH (11:11)
[2020-03-01] MEDS: PANTOPRAZOLE 40 MG TAB PO SCH (11:11)
[2020-03-01] MEDS: ENOXAPARIN SOD 40 MG/0.4 ML SYRINGE SC SCH ×2 (11:12→22:00)
[2020-03-01] MEDS: CHOLECALCIFEROL (VITD3) 2,000 UNIT CAP/TAB PO SCH (11:12)
[2020-03-01] MEDS: POTASSIUM CHL 20 Meq TABLET PO SCH (11:13)
[2020-03-01] MEDS: guaiFENesin-DM 100/10mg/5ml SYR PO PRN (11:13)
[2020-03-01] MEDS ORDERED: ETOMIDATE (2MG/ML) 20ML VIAL IV ONE ×3 (16:08→18:45)
[2020-03-01] MEDS ORDERED: SUCCINYLCHOLINE CHLORIDE 20 MG/ML 10ML VIAL IV ONE ×2 (16:08→17:30)
[2020-03-01] MEDS ORDERED: ROCURONIUM 10MG/ML 10ML VIAL IV ONE (16:08)
[2020-03-01] MEDS: MIDAZOLAM DRIP 50 mg/50mL 50 ML IV SCH (17:40)
[2020-03-01] MEDS: fentaNYL Drip 2500mCg/250mlNS 250 ML IV SCH (17:45)
[2020-03-01] MEDS ORDERED: PROPOFOL 100 ML IV ONE (17:49)
[2020-03-01] MEDS ORDERED: PROPOFOL 100 ML IV SCH (18:00)
[2020-03-01] MEDS ORDERED: IPRATROPIUM BROM 0.5 MG/2.5ML INH SOL NEB SCH (18:30)
[2020-03-01] MEDS ORDERED: ALBUTEROL SULF 2.5 MG/0.5ML(0.5%) NEB SOLN NEB SCH (18:30)
[2020-03-01] MEDS: IPRATROPIUM BROM 0.5 MG/2.5ML INH SOL NEB SCH (19:00)
[2020-03-01] MEDS: ALBUTEROL SULF 2.5 MG/0.5ML(0.5%) NEB SOLN NEB SCH (19:00)
[2020-03-01] MEDS: PHENYLEPHRINE IV 250 ML IV SCH ×2 (20:38→23:41)
[2020-03-01] MEDS: PROPOFOL 100 ML IV SCH (20:41)
[2020-03-01] MEDS: BUDESONIDE (INHALATION) 0.5 MG/2 ML NEB NEB SCH (22:00)
[2020-03-02] VITALS (97 sets, daily range): BP systolic 50–149; BP diastolic 27–105
[2020-03-02] MEDS ORDERED: VASOPRESSIN 20 UNIT/ML ONE ×2 (00:38→14:39)
[2020-03-02] MEDS: VASOPRESSIN 50 UNITS in D5W 5% 247.5 ML IV SCH ×2 (00:50→15:00)
[2020-03-02] MEDS: MIDAZOLAM DRIP 50 mg/50mL 50 ML IV SCH ×3 (01:07→20:00)
[2020-03-02] MEDS: PHENYLEPHRINE IV 250 ML IV SCH ×2 (02:48→09:00)
[2020-03-02] MEDS: fentaNYL Drip 2500mCg/250mlNS 250 ML IV SCH ×2 (03:19→18:11)
[2020-03-02 04:46] LABS: Basophils # (auto) 0.1 10 ^3/uL (0-0.2); Basophils % (auto) 0.4 % (0.0-2.0); Eosinophils # (auto) 0.4 10 ^3/uL (0-0.8); Eosinophils % (auto) 2.2 % (0.0-7.0); Hematocrit 40.4 % (41.0-53.0); Hemoglobin 13.4 g/dL (13.5-17.5); Lymphocytes # (auto) 2.1 10 ^3/uL (0.4-5.4); Lymphocytes % (auto) 12.8 % (10.0-50.0); Mean Corpuscular Hemoglobin 28.9 pg (28.0-32.0); Mean Corpuscular Hgb Conc. 33.2 g/dL (32.0-36.0); Monocytes # (auto) 1.8 10 ^3/uL (0-1.3); Neutrophils # (auto) 12.1 10 ^3/uL (1.6-8.6); Neutrophils % (auto) 73.6 % (37.0-80.0); Platelet Count (auto) 271 10^3/uL (140-450); Red Blood Cells 4.64 10^6/uL (4.5-5.90); Red Cell Distribution Width 13.8 % (11.8-14.3); White Blood Cell 16.4 10^3/uL (4.4-10.8)
[2020-03-02 05:08] LABS: Albumin 2.4 g/dL (3.4-5.0); Calcium 8.4 mg/dL (8.5-10.1); Magnesium 2.8 mg/dL (1.6-2.6); Potassium 4.9 mmol/L (3.5-5.1)
[2020-03-02 05:16] LABS: BUN/Creatinine Ratio 15.4; Bilirubin, Total 0.8 mg/dL (0.2-1.0); Pre Albumin 13.9 mg/dL (20.0-40.0); Total Protein 7.8 g/dL (6.4-8.2)
[2020-03-02] MEDS: SODIUM CHLOR 0.9% PF (SALINE LOCK) 10ML VIAL/SYR IV SCH ×3 (06:22→22:00)
[2020-03-02] MEDS: ALBUTEROL SULF 2.5 MG/0.5ML(0.5%) NEB SOLN NEB SCH ×4 (07:00→18:20)
[2020-03-02] MEDS: BUDESONIDE (INHALATION) 0.5 MG/2 ML NEB NEB SCH ×2 (07:00→18:20)
[2020-03-02] MEDS: IPRATROPIUM BROM 0.5 MG/2.5ML INH SOL NEB SCH ×4 (07:00→18:20)
[2020-03-02] MEDS: NOREPINEPHRINE 8 MG/250ML KIT 250 ML IV SCH ×2 (07:32→07:45)
[2020-03-02] MEDS ORDERED: ALBUMIN 5% 250 ML IV ONE (09:15)
[2020-03-02] MEDS: PANTOPRAZOLE 40 MG/10 ML VIAL INJ IV SCH (09:52)
[2020-03-02] MEDS: CHOLECALCIFEROL (VITD3) 2,000 UNIT CAP/TAB PO SCH (09:52)
[2020-03-02] MEDS: ZINC SULFATE 220mg CAP or TAB PO SCH (09:53)
[2020-03-02] MEDS ORDERED: ENOXAPARIN SOD 60 MG/0.6 ML SYRINGE SC ONE (10:00)
[2020-03-02] MEDS: ASCORBIC ACID 1,000 MG TAB PO SCH (10:00)
[2020-03-02] MEDS: PHENYLEPHRINE INJ 80 MG in SODIUM CHL 0.9% 250 ML IV SCH (10:30)
[2020-03-02] MEDS: ACETAMINOPHEN 500 MG TAB PO PRN (10:30)
[2020-03-02] MEDS: ENOXAPARIN SOD 40 MG/0.4 ML SYRINGE SC SCH ×2 (10:30→22:00)
[2020-03-02] MEDS: MEROPENEM 1GM IVPB 100 ML IV SCH ×2 (11:10→22:00)
[2020-03-02] MEDS: LINEZOLID 600MG/300ML 300 ML IV SCH (15:29)
[2020-03-02] MEDS: ALBUMIN 25% 100 ML IV SCH ×2 (16:58→23:45)
[2020-03-02] MEDS: PROPOFOL 100 ML IV SCH (18:30)
[2020-03-03] VITALS (99 sets, daily range): BP systolic 96–165; BP diastolic 42–116
[2020-03-03] MEDS: ALBUTEROL SULF 2.5 MG/0.5ML(0.5%) NEB SOLN NEB SCH ×4 (00:13→18:00)
[2020-03-03] MEDS: IPRATROPIUM BROM 0.5 MG/2.5ML INH SOL NEB SCH ×4 (00:13→18:00)
[2020-03-03] MEDS ORDERED: VASOPRESSIN 20 UNIT/ML ONE (00:36)
[2020-03-03] MEDS: MIDAZOLAM DRIP 50 mg/50mL 50 ML IV SCH ×3 (00:58→20:00)
[2020-03-03] MEDS: VASOPRESSIN 50 UNITS in D5W 5% 247.5 ML IV SCH ×2 (00:59→14:50)
[2020-03-03] MEDS: PHENYLEPHRINE INJ 80 MG in SODIUM CHL 0.9% 250 ML IV SCH ×2 (02:42→11:08)
[2020-03-03 04:52] LABS: Basophils # (auto) 0 10 ^3/uL (0-0.2); Basophils % (auto) 0.4 % (0.0-2.0); Eosinophils # (auto) 0.3 10 ^3/uL (0-0.8); Hematocrit 34.7 % (41.0-53.0); Hemoglobin 11.5 g/dL (13.5-17.5); Lymphocytes # (auto) 1.8 10 ^3/uL (0.4-5.4); Lymphocytes % (auto) 13.8 % (10.0-50.0); Mean Corpuscular Hemoglobin 28.6 pg (28.0-32.0); Mean Corpuscular Hgb Conc. 33.1 g/dL (32.0-36.0); Mean Corpuscular Volume 86.5 fL (80.0-100.0); Monocytes # (auto) 1.1 10 ^3/uL (0-1.3); Monocytes % (auto) 8.3 % (0.0-12.0); Neutrophils % (auto) 75.5 % (37.0-80.0); Nucleated Red Blood Cells % 0.1 %; Platelet Count (auto) 213 10^3/uL (140-450); Red Blood Cells 4.01 10^6/uL (4.5-5.90); Red Cell Distribution Width 13.4 % (11.8-14.3); White Blood Cell 13.2 10^3/uL (4.4-10.8)
[2020-03-03 05:10] LABS: Albumin 2.9 g/dL (3.4-5.0); Calcium 8.7 mg/dL (8.5-10.1); Potassium 4.7 mmol/L (3.5-5.1)
[2020-03-03 05:13] LABS: BUN/Creatinine Ratio 27.3; Bilirubin, Total 0.8 mg/dL (0.2-1.0); Total Protein 7.8 g/dL (6.4-8.2)
[2020-03-03] MEDS: SODIUM CHLOR 0.9% PF (SALINE LOCK) 10ML VIAL/SYR IV SCH ×3 (06:00→22:00)
[2020-03-03] MEDS: fentaNYL Drip 2500mCg/250mlNS 250 ML IV SCH ×2 (06:00→16:56)
[2020-03-03] MEDS: ALBUMIN 25% 100 ML IV SCH (08:28)
[2020-03-03] MEDS ORDERED: FUROSEMIDE 40 MG/4 ML VIAL IV ONE (09:15)
[2020-03-03] MEDS: BUDESONIDE (INHALATION) 0.5 MG/2 ML NEB NEB SCH ×2 (10:00→20:07)
[2020-03-03] MEDS: CHOLECALCIFEROL (VITD3) 2,000 UNIT CAP/TAB PO SCH (10:20)
[2020-03-03] MEDS: ZINC SULFATE 220mg CAP or TAB PO SCH (10:20)
[2020-03-03] MEDS: ASCORBIC ACID 1,000 MG TAB PO SCH (10:20)
[2020-03-03] MEDS: ENOXAPARIN SOD 40 MG/0.4 ML SYRINGE SC SCH ×2 (10:20→22:00)
[2020-03-03] MEDS: PANTOPRAZOLE 40 MG/10 ML VIAL INJ IV SCH (10:20)
[2020-03-03] MEDS: MEROPENEM 1GM IVPB 100 ML IV SCH ×2 (10:20→22:00)
[2020-03-03] MEDS: ACETAMINOPHEN 500 MG TAB PO PRN ×2 (12:29)
[2020-03-03] MEDS: LINEZOLID 600MG/300ML 300 ML IV SCH ×2 (13:06)
[2020-03-03] MEDS: METOCLOPRAMIDE HCL 5MG/ml INJ 2ml VIAL IV SCH ×2 (14:53→22:00)
[2020-03-03] MEDS ORDERED: diphenhdrAMINE HCL 50 MG/1 ML VL IV ONE (15:30)
[2020-03-03] MEDS ORDERED: methylPREDNISolone SOD SUCC 40 MG/ML VL IV ONE (15:30)
[2020-03-03] MEDS ORDERED: ACETAMINOPHEN 650 mg PER 20.3 mL UD PO ONE (15:30)
[2020-03-03] MEDS ORDERED: TOCILIZUMAB 400 MG in SODIUM CHL 0.9% 80 ML IV ONE (16:00)
[2020-03-03] MEDS: PROPOFOL 100 ML IV SCH (18:30)
[2020-03-04] VITALS (96 sets, daily range): BP systolic 86–140; BP diastolic 46–96
[2020-03-04] MEDS ORDERED: VASOPRESSIN 20 UNIT/ML ONE ×2 (01:26→01:33)
[2020-03-04] MEDS: VASOPRESSIN 50 UNITS in D5W 5% 247.5 ML IV SCH (01:44)
[2020-03-04] MEDS: MIDAZOLAM DRIP 50 mg/50mL 50 ML IV SCH ×3 (01:59→18:00)
[2020-03-04 04:36] LABS: Basophils # (auto) 0 10 ^3/uL (0-0.2); Eosinophils # (auto) 0 10 ^3/uL (0-0.8); Eosinophils % (auto) 0.1 % (0.0-7.0); Hematocrit 30.9 % (41.0-53.0); Hemoglobin 10.5 g/dL (13.5-17.5); Lymphocytes # (auto) 0.6 10 ^3/uL (0.4-5.4); Mean Corpuscular Hemoglobin 29.4 pg (28.0-32.0); Mean Corpuscular Hgb Conc. 33.9 g/dL (32.0-36.0); Mean Corpuscular Volume 86.8 fL (80.0-100.0); Monocytes # (auto) 0.1 10 ^3/uL (0-1.3); Monocytes % (auto) 2.2 % (0.0-12.0); Neutrophils # (auto) 5.4 10 ^3/uL (1.6-8.6); Neutrophils % (auto) 87.7 % (37.0-80.0); Platelet Count (auto) 149 10^3/uL (140-450); Red Blood Cells 3.56 10^6/uL (4.5-5.90); Red Cell Distribution Width 13.8 % (11.8-14.3); White Blood Cell 6.2 10^3/uL (4.4-10.8)
[2020-03-04] MEDS: fentaNYL Drip 2500mCg/250mlNS 250 ML IV SCH (04:39)
[2020-03-04 05:09] LABS: Albumin 2.7 g/dL (3.4-5.0); BUN/Creatinine Ratio 32.7; Bilirubin, Total 0.6 mg/dL (0.2-1.0); Calcium 8.5 mg/dL (8.5-10.1); Total Protein 7.1 g/dL (6.4-8.2)
[2020-03-04] MEDS: IPRATROPIUM BROM 0.5 MG/2.5ML INH SOL NEB SCH ×5 (06:00→19:15)
[2020-03-04] MEDS: ALBUTEROL SULF 2.5 MG/0.5ML(0.5%) NEB SOLN NEB SCH ×5 (06:00→19:15)
[2020-03-04] MEDS: METOCLOPRAMIDE HCL 5MG/ml INJ 2ml VIAL IV SCH ×3 (06:29→22:35)
[2020-03-04] MEDS: SODIUM CHLOR 0.9% PF (SALINE LOCK) 10ML VIAL/SYR IV SCH ×3 (06:29→22:34)
[2020-03-04] MEDS: NOREPINEPHRINE 8 MG/250ML KIT 250 ML IV SCH (07:00)
[2020-03-04] MEDS: PANTOPRAZOLE 40 MG/10 ML VIAL INJ IV SCH (08:31)
[2020-03-04] MEDS: MEROPENEM 1GM IVPB 100 ML IV SCH ×2 (08:31→22:35)
[2020-03-04] MEDS: CHOLECALCIFEROL (VITD3) 2,000 UNIT CAP/TAB PO SCH (09:05)
[2020-03-04] MEDS: ENOXAPARIN SOD 40 MG/0.4 ML SYRINGE SC SCH ×2 (09:06→22:35)
[2020-03-04] MEDS: ASCORBIC ACID 1,000 MG TAB PO SCH (09:06)
[2020-03-04] MEDS: ZINC SULFATE 220mg CAP or TAB PO SCH (09:07)
[2020-03-04] MEDS: BUDESONIDE (INHALATION) 0.5 MG/2 ML NEB NEB SCH ×2 (10:00→19:07)
[2020-03-04] MEDS ORDERED: ACETAMINOPHEN 650 mg PER 20.3 mL UD PO ONE (10:30)
[2020-03-04] MEDS ORDERED: methylPREDNISolone SOD SUCC 40 MG/ML VL IV ONE (10:30)
[2020-03-04] MEDS ORDERED: diphenhdrAMINE HCL 50 MG/1 ML VL IV ONE (10:30)
[2020-03-04] MEDS ORDERED: TOCILIZUMAB 400 MG in SODIUM CHL 0.9% 80 ML IV ONE (11:00)
[2020-03-04] MEDS: LINEZOLID 600MG/300ML 300 ML IV SCH ×2 (12:00)
[2020-03-04] MEDS ORDERED: ALBUMIN 25% 100 ML IV ONE (13:00)
[2020-03-04] MEDS ORDERED: FUROSEMIDE 40 MG/4 ML VIAL IV ONE (13:00)
[2020-03-04 13:41] LABS: Hepatitis A Ab IgM Negative; Hepatitis B Core IgM Negative; Hepatitis B Surface Antigen Negative (Negative); Hepatitis C Antibody Negative (Negative)
[2020-03-04] MEDS: PROPOFOL 100 ML IV SCH (18:30)
[2020-03-05] VITALS (102 sets, daily range): BP systolic 88–138; BP diastolic 57–94
[2020-03-05] MEDS: LINEZOLID 600MG/300ML 300 ML IV SCH ×3 (00:18→23:50)
[2020-03-05] MEDS: METOCLOPRAMIDE HCL 5MG/ml INJ 2ml VIAL IV SCH ×3 (06:22→21:44)
[2020-03-05] MEDS: SODIUM CHLOR 0.9% PF (SALINE LOCK) 10ML VIAL/SYR IV SCH ×3 (06:22→21:44)
[2020-03-05 06:38] LABS: Basophils # (auto) 0 10 ^3/uL (0-0.2); Basophils % (auto) 0.3 % (0.0-2.0); Eosinophils # (auto) 0.1 10 ^3/uL (0-0.8); Eosinophils % (auto) 1.2 % (0.0-7.0); Hematocrit 31.3 % (41.0-53.0); Hemoglobin 10.8 g/dL (13.5-17.5); Lymphocytes # (auto) 1.2 10 ^3/uL (0.4-5.4); Lymphocytes % (auto) 22.5 % (10.0-50.0); Mean Corpuscular Hemoglobin 29.6 pg (28.0-32.0); Mean Corpuscular Hgb Conc. 34.6 g/dL (32.0-36.0); Mean Corpuscular Volume 85.4 fL (80.0-100.0); Monocytes # (auto) 0.6 10 ^3/uL (0-1.3); Neutrophils # (auto) 3.6 10 ^3/uL (1.6-8.6); Nucleated Red Blood Cells % 0.3 %; Platelet Count (auto) 176 10^3/uL (140-450); Red Blood Cells 3.66 10^6/uL (4.5-5.90); Red Cell Distribution Width 13.2 % (11.8-14.3); White Blood Cell 5.5 10^3/uL (4.4-10.8)
[2020-03-05 06:46] LABS: Potassium 3.9 mmol/L (3.5-5.1)
[2020-03-05] MEDS: IPRATROPIUM BROM 0.5 MG/2.5ML INH SOL NEB SCH ×3 (07:10→20:02)
[2020-03-05] MEDS: BUDESONIDE (INHALATION) 0.5 MG/2 ML NEB NEB SCH ×2 (07:10→20:02)
[2020-03-05] MEDS: ALBUTEROL SULF 2.5 MG/0.5ML(0.5%) NEB SOLN NEB SCH ×3 (07:10→20:02)
[2020-03-05 07:20] LABS: Albumin 3.2 g/dL (3.4-5.0); Bilirubin, Total 0.5 mg/dL (0.2-1.0); Calcium 8.9 mg/dL (8.5-10.1); Total Protein 7.2 g/dL (6.4-8.2)
[2020-03-05] MEDS ORDERED: DEXTROSE (50%) 50ML SYRG IV PRN (08:30)
[2020-03-05] MEDS: MEROPENEM 1GM IVPB 100 ML IV SCH ×2 (10:36→21:44)
[2020-03-05] MEDS: PANTOPRAZOLE 40 MG/10 ML VIAL INJ IV SCH (10:38)
[2020-03-05] MEDS: ENOXAPARIN SOD 40 MG/0.4 ML SYRINGE SC SCH ×2 (10:38→21:44)
[2020-03-05] MEDS: CHOLECALCIFEROL (VITD3) 2,000 UNIT CAP/TAB PO SCH (10:38)
[2020-03-05] MEDS: ASCORBIC ACID 1,000 MG TAB PO SCH (10:38)
[2020-03-05] MEDS: NOREPINEPHRINE 8 MG/250ML KIT 250 ML IV SCH (10:39)
[2020-03-05] MEDS: PHENYLEPHRINE INJ 80 MG in SODIUM CHL 0.9% 250 ML IV SCH (10:39)
[2020-03-05] MEDS: ACCU-CHEK COMFORT CURVE STRIP VI SCH ×2 (12:00→18:00)
[2020-03-05] MEDS: FUROSEMIDE 40 MG/4 ML VIAL IV SCH (12:00)
[2020-03-05] MEDS: InsuLIN REG 1unit/0.01ml Soln (100units/ml) SC SCH ×2 (12:51→19:23)
[2020-03-05] MEDS: Jevity 1.2 Cal/Fiber 1 Liter GT SCH (16:57)
[2020-03-05] MEDS: fentaNYL Drip 2500mCg/250mlNS 250 ML IV SCH (17:09)
[2020-03-05] MEDS: PROPOFOL 100 ML IV SCH (19:24)
[2020-03-06] VITALS (97 sets, daily range): BP systolic 90–128; BP diastolic 57–89
[2020-03-06] MEDS: VASOPRESSIN 50 UNITS in D5W 5% 247.5 ML IV SCH (00:15)
[2020-03-06] MEDS: ACCU-CHEK COMFORT CURVE STRIP VI SCH ×5 (00:30→23:29)
[2020-03-06 05:50] LABS: Basophils # (auto) 0 10 ^3/uL (0-0.2); Basophils % (auto) 0.7 % (0.0-2.0); Eosinophils # (auto) 0.2 10 ^3/uL (0-0.8); Eosinophils % (auto) 5.4 % (0.0-7.0); Hematocrit 32.6 % (41.0-53.0); Hemoglobin 11.5 g/dL (13.5-17.5); Lymphocytes # (auto) 0.9 10 ^3/uL (0.4-5.4); Lymphocytes % (auto) 22.6 % (10.0-50.0); Mean Corpuscular Hgb Conc. 35.1 g/dL (32.0-36.0); Mean Corpuscular Volume 85.4 fL (80.0-100.0); Monocytes # (auto) 0.4 10 ^3/uL (0-1.3); Monocytes % (auto) 9.3 % (0.0-12.0); Neutrophils # (auto) 2.4 10 ^3/uL (1.6-8.6); Nucleated Red Blood Cells % 1.4 %; Platelet Count (auto) 169 10^3/uL (140-450); Red Blood Cells 3.82 10^6/uL (4.5-5.90); Red Cell Distribution Width 13.1 % (11.8-14.3); White Blood Cell 3.8 10^3/uL (4.4-10.8)
[2020-03-06] MEDS: InsuLIN REG 1unit/0.01ml Soln (100units/ml) SC SCH ×5 (06:00→23:29)
[2020-03-06 06:07] LABS: Albumin 2.9 g/dL (3.4-5.0); Calcium 9.5 mg/dL (8.5-10.1); Potassium 3.3 mmol/L (3.5-5.1)
[2020-03-06 06:11] LABS: BUN/Creatinine Ratio 42.9; Bilirubin, Total 0.5 mg/dL (0.2-1.0); Total Protein 6.8 g/dL (6.4-8.2)
[2020-03-06] MEDS: SODIUM CHLOR 0.9% PF (SALINE LOCK) 10ML VIAL/SYR IV SCH ×3 (06:24→22:25)
[2020-03-06] MEDS: MIDAZOLAM DRIP 50 mg/50mL 50 ML IV SCH ×3 (06:28→21:15)
[2020-03-06] MEDS: fentaNYL Drip 2500mCg/250mlNS 250 ML IV SCH (06:29)
[2020-03-06] MEDS: METOCLOPRAMIDE HCL 5MG/ml INJ 2ml VIAL IV SCH ×3 (06:32→22:30)
[2020-03-06] MEDS: NOREPINEPHRINE 8 MG/250ML KIT 250 ML IV SCH (07:00)
[2020-03-06] MEDS: BUDESONIDE (INHALATION) 0.5 MG/2 ML NEB NEB SCH ×2 (07:15→18:53)
[2020-03-06] MEDS: ALBUTEROL SULF 2.5 MG/0.5ML(0.5%) NEB SOLN NEB SCH ×4 (07:15→18:52)
[2020-03-06] MEDS: IPRATROPIUM BROM 0.5 MG/2.5ML INH SOL NEB SCH ×4 (07:15→18:52)
[2020-03-06] MEDS: PHENYLEPHRINE INJ 80 MG in SODIUM CHL 0.9% 250 ML IV SCH (08:23)
[2020-03-06] MEDS: ENOXAPARIN SOD 40 MG/0.4 ML SYRINGE SC SCH ×2 (10:00→22:31)
[2020-03-06] MEDS: FUROSEMIDE 40 MG/4 ML VIAL IV SCH (10:13)
[2020-03-06] MEDS: MEROPENEM 1GM IVPB 100 ML IV SCH ×2 (10:13→22:30)
[2020-03-06] MEDS: PANTOPRAZOLE 40 MG/10 ML VIAL INJ IV SCH (10:13)
[2020-03-06] MEDS: CHOLECALCIFEROL (VITD3) 2,000 UNIT CAP/TAB PO SCH (10:13)
[2020-03-06] MEDS: ASCORBIC ACID 1,000 MG TAB PO SCH (10:13)
[2020-03-06] MEDS: LINEZOLID 600MG/300ML 300 ML IV SCH (12:05)
[2020-03-06] MEDS: POTASSIUM CHL 20MEQ/100ML 100 ML IV SCH ×2 (14:45→16:14)
[2020-03-06] MEDS ORDERED: DOPamine 1600MCG/ML D5W 0 ML IV ONE (16:37)
[2020-03-06] MEDS: PROPOFOL 100 ML IV SCH (18:18)
[2020-03-06] MEDS: Jevity 1.2 Cal/Fiber 1 Liter GT SCH (22:00)
[2020-03-07] VITALS (96 sets, daily range): BP systolic 95–125; BP diastolic 58–85
[2020-03-07] MEDS: VASOPRESSIN 50 UNITS in D5W 5% 247.5 ML IV SCH (00:15)
[2020-03-07] MEDS: MIDAZOLAM DRIP 50 mg/50mL 50 ML IV SCH ×5 (01:40→21:15)
[2020-03-07] MEDS: fentaNYL Drip 2500mCg/250mlNS 250 ML IV SCH ×2 (05:00→16:37)
[2020-03-07] MEDS: InsuLIN REG 1unit/0.01ml Soln (100units/ml) SC SCH ×4 (06:00→23:58)
[2020-03-07] MEDS: SODIUM CHLOR 0.9% PF (SALINE LOCK) 10ML VIAL/SYR IV SCH ×3 (06:00→21:48)
[2020-03-07] MEDS: methylPREDNISolone SOD SUCC 40 MG/ML VL IV SCH ×3 (06:06→21:48)
[2020-03-07] MEDS: METOCLOPRAMIDE HCL 5MG/ml INJ 2ml VIAL IV SCH ×3 (06:06→21:47)
[2020-03-07] MEDS: ACCU-CHEK COMFORT CURVE STRIP VI SCH ×4 (06:06→23:58)
[2020-03-07 06:17] LABS: Basophils # (auto) 0 10 ^3/uL (0-0.2); Basophils % (auto) 0.4 % (0.0-2.0); Eosinophils # (auto) 0.4 10 ^3/uL (0-0.8); Eosinophils % (auto) 10.6 % (0.0-7.0); Hematocrit 35.8 % (41.0-53.0); Hemoglobin 12.6 g/dL (13.5-17.5); Lymphocytes # (auto) 0.8 10 ^3/uL (0.4-5.4); Lymphocytes % (auto) 22.8 % (10.0-50.0); Mean Corpuscular Hemoglobin 30.4 pg (28.0-32.0); Mean Corpuscular Hgb Conc. 35.1 g/dL (32.0-36.0); Mean Corpuscular Volume 86.4 fL (80.0-100.0); Monocytes # (auto) 0.3 10 ^3/uL (0-1.3); Monocytes % (auto) 8.5 % (0.0-12.0); Neutrophils % (auto) 57.7 % (37.0-80.0); Nucleated Red Blood Cells % 0.7 %; Platelet Count (auto) 166 10^3/uL (140-450); Red Blood Cells 4.14 10^6/uL (4.5-5.90); Red Cell Distribution Width 13.7 % (11.8-14.3); White Blood Cell 3.4 10^3/uL (4.4-10.8)
[2020-03-07 06:25] LABS: Potassium 3.6 mmol/L (3.5-5.1)
[2020-03-07 06:34] LABS: Albumin 3.2 g/dL (3.4-5.0); Bilirubin, Total 0.7 mg/dL (0.2-1.0); Calcium 9.7 mg/dL (8.5-10.1); Total Protein 7.2 g/dL (6.4-8.2)
[2020-03-07] MEDS: NOREPINEPHRINE 8 MG/250ML KIT 250 ML IV SCH (07:00)
[2020-03-07] MEDS: IPRATROPIUM BROM 0.5 MG/2.5ML INH SOL NEB SCH ×3 (07:50→22:15)
[2020-03-07] MEDS: BUDESONIDE (INHALATION) 0.5 MG/2 ML NEB NEB SCH ×2 (07:50→22:15)
[2020-03-07] MEDS: ALBUTEROL SULF 2.5 MG/0.5ML(0.5%) NEB SOLN NEB SCH ×3 (07:50→22:14)
[2020-03-07] MEDS: PHENYLEPHRINE INJ 80 MG in SODIUM CHL 0.9% 250 ML IV SCH (09:45)
[2020-03-07] MEDS: CHOLECALCIFEROL (VITD3) 2,000 UNIT CAP/TAB PO SCH (10:00)
[2020-03-07] MEDS: ASCORBIC ACID 1,000 MG TAB PO SCH (10:24)
[2020-03-07] MEDS: ENOXAPARIN SOD 40 MG/0.4 ML SYRINGE SC SCH ×2 (10:24→21:49)
[2020-03-07] MEDS: FUROSEMIDE 40 MG/4 ML VIAL IV SCH (10:24)
[2020-03-07] MEDS: PANTOPRAZOLE 40 MG/10 ML VIAL INJ IV SCH (10:24)
[2020-03-07] MEDS: CEFEPIME 1 GM in SODIUM CHL 0.9% 50 ML IV SCH ×2 (14:00→21:47)
[2020-03-07] MEDS: PROPOFOL 100 ML IV SCH ×2 (18:24→23:15)
[2020-03-08] VITALS (98 sets, daily range): BP systolic 94–125; BP diastolic 59–82
[2020-03-08] MEDS: VASOPRESSIN 50 UNITS in D5W 5% 247.5 ML IV SCH (00:15)
[2020-03-08] MEDS: MIDAZOLAM DRIP 50 mg/50mL 50 ML IV SCH ×3 (00:50→16:15)
[2020-03-08] MEDS: methylPREDNISolone SOD SUCC 40 MG/ML VL IV SCH ×3 (05:47→22:00)
[2020-03-08] MEDS: METOCLOPRAMIDE HCL 5MG/ml INJ 2ml VIAL IV SCH ×3 (05:47→22:00)
[2020-03-08] MEDS: CEFEPIME 1 GM in SODIUM CHL 0.9% 50 ML IV SCH ×3 (05:48→22:00)
[2020-03-08] MEDS: SODIUM CHLOR 0.9% PF (SALINE LOCK) 10ML VIAL/SYR IV SCH ×3 (05:48→22:00)
[2020-03-08] MEDS: fentaNYL Drip 2500mCg/250mlNS 250 ML IV SCH (05:49)
[2020-03-08] MEDS: ACCU-CHEK COMFORT CURVE STRIP VI SCH ×2 (05:51→12:00)
[2020-03-08] MEDS: InsuLIN REG 1unit/0.01ml Soln (100units/ml) SC SCH ×2 (05:52→12:00)
[2020-03-08 05:53] LABS: Basophils # (auto) 0 10 ^3/uL (0-0.2); Basophils % (auto) 0.1 % (0.0-2.0); Eosinophils # (auto) 0 10 ^3/uL (0-0.8); Eosinophils % (auto) 0.1 % (0.0-7.0); Hematocrit 35.2 % (41.0-53.0); Hemoglobin 12.1 g/dL (13.5-17.5); Lymphocytes # (auto) 0.7 10 ^3/uL (0.4-5.4); Lymphocytes % (auto) 13.2 % (10.0-50.0); Mean Corpuscular Hemoglobin 29.8 pg (28.0-32.0); Mean Corpuscular Hgb Conc. 34.3 g/dL (32.0-36.0); Mean Corpuscular Volume 86.9 fL (80.0-100.0); Monocytes # (auto) 0.2 10 ^3/uL (0-1.3); Monocytes % (auto) 4.4 % (0.0-12.0); Neutrophils # (auto) 4.1 10 ^3/uL (1.6-8.6); Neutrophils % (auto) 82.2 % (37.0-80.0); Nucleated Red Blood Cells % 0.2 %; Platelet Count (auto) 190 10^3/uL (140-450); Red Blood Cells 4.05 10^6/uL (4.5-5.90); Red Cell Distribution Width 13.5 % (11.8-14.3)
[2020-03-08] MEDS: IPRATROPIUM BROM 0.5 MG/2.5ML INH SOL NEB SCH ×3 (06:00→14:56)
[2020-03-08] MEDS: ALBUTEROL SULF 2.5 MG/0.5ML(0.5%) NEB SOLN NEB SCH ×3 (06:00→14:56)
[2020-03-08 06:09] LABS: Potassium 4.4 mmol/L (3.5-5.1)
[2020-03-08 06:16] LABS: Albumin 3.2 g/dL (3.4-5.0); Bilirubin, Total 0.6 mg/dL (0.2-1.0); Calcium 9.5 mg/dL (8.5-10.1); Total Protein 7.1 g/dL (6.4-8.2)
[2020-03-08] MEDS: NOREPINEPHRINE 8 MG/250ML KIT 250 ML IV SCH (07:00)
[2020-03-08] MEDS: BUDESONIDE (INHALATION) 0.5 MG/2 ML NEB NEB SCH ×2 (08:31→18:12)
[2020-03-08] MEDS: CHOLECALCIFEROL (VITD3) 2,000 UNIT CAP/TAB PO SCH (09:38)
[2020-03-08] MEDS: ENOXAPARIN SOD 40 MG/0.4 ML SYRINGE SC SCH ×2 (09:38→22:00)
[2020-03-08] MEDS: PANTOPRAZOLE 40 MG/10 ML VIAL INJ IV SCH (09:38)
[2020-03-08] MEDS: FUROSEMIDE 40 MG/4 ML VIAL IV SCH (09:38)
[2020-03-08] MEDS: ASCORBIC ACID 1,000 MG TAB PO SCH (09:38)
[2020-03-08] MEDS: PHENYLEPHRINE INJ 80 MG in SODIUM CHL 0.9% 250 ML IV SCH (09:45)
[2020-03-08] MEDS: ACETAMINOPHEN 500 MG TAB PO PRN (15:23)
[2020-03-08] MEDS: ALBUTEROL SULF 2.5 MG/0.5ML(0.5%) NEB SOLN NEB PRN (18:12)
[2020-03-09] VITALS (99 sets, daily range): BP systolic 85–144; BP diastolic 53–98
[2020-03-09] MEDS: ACCU-CHEK COMFORT CURVE STRIP VI SCH ×5 (00:15→23:59)
[2020-03-09] MEDS: InsuLIN REG 1unit/0.01ml Soln (100units/ml) SC SCH ×5 (00:16→23:59)
[2020-03-09] MEDS: MIDAZOLAM DRIP 50 mg/50mL 50 ML IV SCH ×2 (03:00→21:00)
[2020-03-09 04:51] LABS: Basophils # (auto) 0 10 ^3/uL (0-0.2); Basophils % (auto) 0.1 % (0.0-2.0); Eosinophils # (auto) 0 10 ^3/uL (0-0.8); Eosinophils % (auto) 0.1 % (0.0-7.0); Hematocrit 35.7 % (41.0-53.0); Lymphocytes # (auto) 0.6 10 ^3/uL (0.4-5.4); Mean Corpuscular Hemoglobin 29.6 pg (28.0-32.0); Mean Corpuscular Hgb Conc. 33.7 g/dL (32.0-36.0); Mean Corpuscular Volume 87.6 fL (80.0-100.0); Monocytes # (auto) 0.3 10 ^3/uL (0-1.3); Monocytes % (auto) 5.6 % (0.0-12.0); Neutrophils # (auto) 3.8 10 ^3/uL (1.6-8.6); Neutrophils % (auto) 81.2 % (37.0-80.0); Nucleated Red Blood Cells % 0.2 %; Platelet Count (auto) 205 10^3/uL (140-450); Red Blood Cells 4.08 10^6/uL (4.5-5.90); Red Cell Distribution Width 14.1 % (11.8-14.3); White Blood Cell 4.7 10^3/uL (4.4-10.8)
[2020-03-09] MEDS: fentaNYL Drip 2500mCg/250mlNS 250 ML IV SCH (05:00)
[2020-03-09] MEDS: Jevity 1.2 Cal/Fiber 1 Liter GT SCH (05:00)
[2020-03-09 05:06] LABS: Potassium 4.4 mmol/L (3.5-5.1)
[2020-03-09 05:10] LABS: Albumin 3.3 g/dL (3.4-5.0); BUN/Creatinine Ratio 46.7; Calcium 9.2 mg/dL (8.5-10.1)
[2020-03-09 05:12] LABS: Bilirubin, Total 0.6 mg/dL (0.2-1.0); Total Protein 7.2 g/dL (6.4-8.2)
[2020-03-09] MEDS: METOCLOPRAMIDE HCL 5MG/ml INJ 2ml VIAL IV SCH ×3 (06:00→22:00)
[2020-03-09] MEDS: methylPREDNISolone SOD SUCC 40 MG/ML VL IV SCH (06:00)
[2020-03-09] MEDS: CEFEPIME 1 GM in SODIUM CHL 0.9% 50 ML IV SCH ×3 (06:00→22:00)
[2020-03-09] MEDS: SODIUM CHLOR 0.9% PF (SALINE LOCK) 10ML VIAL/SYR IV SCH ×3 (06:00→22:00)
[2020-03-09] MEDS ORDERED: ALBUTEROL SULF 2.5 MG/0.5ML(0.5%) NEB SOLN ONE (06:37)
[2020-03-09] MEDS: NOREPINEPHRINE 8 MG/250ML KIT 250 ML IV SCH (08:01)
[2020-03-09] MEDS: CHOLECALCIFEROL (VITD3) 2,000 UNIT CAP/TAB PO SCH (10:00)
[2020-03-09] MEDS: ASCORBIC ACID 1,000 MG TAB PO SCH (10:00)
[2020-03-09] MEDS: PANTOPRAZOLE 40 MG/10 ML VIAL INJ IV SCH (10:07)
[2020-03-09] MEDS: FUROSEMIDE 40 MG/4 ML VIAL IV SCH (10:07)
[2020-03-09] MEDS: ENOXAPARIN SOD 40 MG/0.4 ML SYRINGE SC SCH ×2 (10:08→22:00)
[2020-03-09] MEDS: BUDESONIDE (INHALATION) 0.5 MG/2 ML NEB NEB SCH ×2 (11:12→18:09)
[2020-03-09] MEDS ORDERED: SODIUM CHLORIDE 0.9% 500 ML IV ONE (13:30)
[2020-03-09] MEDS: ALBUTEROL SULF 2.5 MG/0.5ML(0.5%) NEB SOLN NEB PRN (18:09)
[2020-03-09] MEDS: PROPOFOL 100 ML IV SCH ×2 (19:24→20:00)
[2020-03-10] VITALS (97 sets, daily range): BP systolic 77–139; BP diastolic 45–91
[2020-03-10] MEDS: PROPOFOL 100 ML IV SCH ×4 (00:28→23:35)
[2020-03-10] MEDS: fentaNYL Drip 2500mCg/250mlNS 250 ML IV SCH (02:40)
[2020-03-10] MEDS: METOCLOPRAMIDE HCL 5MG/ml INJ 2ml VIAL IV SCH ×3 (04:51→21:28)
[2020-03-10] MEDS: SODIUM CHLOR 0.9% PF (SALINE LOCK) 10ML VIAL/SYR IV SCH ×3 (04:51→21:28)
[2020-03-10] MEDS: CEFEPIME 1 GM in SODIUM CHL 0.9% 50 ML IV SCH ×3 (04:51→21:34)
[2020-03-10] MEDS: InsuLIN REG 1unit/0.01ml Soln (100units/ml) SC SCH ×4 (04:51→23:34)
[2020-03-10] MEDS: ACCU-CHEK COMFORT CURVE STRIP VI SCH ×4 (04:51→23:34)
[2020-03-10] MEDS: NOREPINEPHRINE 8 MG/250ML KIT 250 ML IV SCH ×2 (07:00→20:15)
[2020-03-10] MEDS: PANTOPRAZOLE 40 MG/10 ML VIAL INJ IV SCH (09:51)
[2020-03-10] MEDS: BUDESONIDE (INHALATION) 0.5 MG/2 ML NEB NEB SCH ×2 (10:12→21:43)
[2020-03-10] MEDS: ENOXAPARIN SOD 40 MG/0.4 ML SYRINGE SC SCH ×2 (12:30→21:28)
[2020-03-10] MEDS: ASCORBIC ACID 1,000 MG TAB PO SCH (12:30)
[2020-03-10] MEDS: CHOLECALCIFEROL (VITD3) 2,000 UNIT CAP/TAB PO SCH (12:30)
[2020-03-10 12:37] LABS: Albumin 3.1 g/dL (3.4-5.0); Potassium 3.7 mmol/L (3.5-5.1)
[2020-03-10 12:41] LABS: BUN/Creatinine Ratio 54.6; Bilirubin, Total 0.8 mg/dL (0.2-1.0); Total Protein 6.7 g/dL (6.4-8.2)
[2020-03-10] MEDS: ACETAMINOPHEN 650 mg PER 20.3 mL UD GT PRN (17:35)
[2020-03-10] MEDS: FREE WATER GT SCH ×2 (18:00→23:33)
[2020-03-10] MEDS: MIDAZOLAM DRIP 50 mg/50mL 50 ML IV SCH (21:31)
[2020-03-10] MEDS: ALBUTEROL SULF 2.5 MG/0.5ML(0.5%) NEB SOLN NEB PRN (21:43)
[2020-03-11] VITALS (98 sets, daily range): BP systolic 88–146; BP diastolic 56–94
[2020-03-11] MEDS: MIDAZOLAM DRIP 50 mg/50mL 50 ML IV SCH ×4 (01:00→23:25)
[2020-03-11] MEDS: PROPOFOL 100 ML IV SCH ×4 (01:00→23:24)
[2020-03-11] MEDS: FREE WATER GT SCH ×4 (04:37→23:25)
[2020-03-11] MEDS: ACETAMINOPHEN 650 mg PER 20.3 mL UD GT PRN (04:44)
[2020-03-11] MEDS: fentaNYL Drip 2500mCg/250mlNS 250 ML IV SCH (05:00)
[2020-03-11] MEDS: CEFEPIME 1 GM in SODIUM CHL 0.9% 50 ML IV SCH ×3 (05:20→21:38)
[2020-03-11] MEDS: ACCU-CHEK COMFORT CURVE STRIP VI SCH ×3 (05:20→17:15)
[2020-03-11] MEDS: METOCLOPRAMIDE HCL 5MG/ml INJ 2ml VIAL IV SCH ×3 (05:20→21:38)
[2020-03-11] MEDS: SODIUM CHLOR 0.9% PF (SALINE LOCK) 10ML VIAL/SYR IV SCH ×3 (05:20→21:39)
[2020-03-11] MEDS: InsuLIN REG 1unit/0.01ml Soln (100units/ml) SC SCH ×3 (05:20→17:15)
[2020-03-11 05:29] LABS: Basophils # (auto) 0 10 ^3/uL (0-0.2); Basophils % (auto) 0.5 % (0.0-2.0); Eosinophils # (auto) 0.3 10 ^3/uL (0-0.8); Eosinophils % (auto) 6.5 % (0.0-7.0); Hematocrit 38.1 % (41.0-53.0); Hemoglobin 13.1 g/dL (13.5-17.5); Lymphocytes % (auto) 20.1 % (10.0-50.0); Mean Corpuscular Hemoglobin 29.9 pg (28.0-32.0); Mean Corpuscular Hgb Conc. 34.4 g/dL (32.0-36.0); Mean Corpuscular Volume 86.9 fL (80.0-100.0); Monocytes # (auto) 0.6 10 ^3/uL (0-1.3); Monocytes % (auto) 12.6 % (0.0-12.0); Neutrophils # (auto) 2.9 10 ^3/uL (1.6-8.6); Neutrophils % (auto) 60.3 % (37.0-80.0); Nucleated Red Blood Cells % 0.2 %; Platelet Count (auto) 175 10^3/uL (140-450); Red Blood Cells 4.38 10^6/uL (4.5-5.90); Red Cell Distribution Width 14.2 % (11.8-14.3); White Blood Cell 4.8 10^3/uL (4.4-10.8)
[2020-03-11 05:44] LABS: Potassium 3.7 mmol/L (3.5-5.1)
[2020-03-11 05:56] LABS: Albumin 3.2 g/dL (3.4-5.0); Bilirubin, Total 0.8 mg/dL (0.2-1.0); Total Protein 6.8 g/dL (6.4-8.2)
[2020-03-11] MEDS: ALBUTEROL SULF 2.5 MG/0.5ML(0.5%) NEB SOLN NEB PRN ×2 (06:05→23:00)
[2020-03-11] MEDS: BUDESONIDE (INHALATION) 0.5 MG/2 ML NEB NEB SCH ×2 (06:05→23:00)
[2020-03-11] MEDS: CHOLECALCIFEROL (VITD3) 2,000 UNIT CAP/TAB PO SCH (09:30)
[2020-03-11] MEDS: PANTOPRAZOLE 40 MG/10 ML VIAL INJ IV SCH (09:30)
[2020-03-11] MEDS: ASCORBIC ACID 1,000 MG TAB PO SCH (09:30)
[2020-03-11] MEDS: ENOXAPARIN SOD 40 MG/0.4 ML SYRINGE SC SCH ×2 (09:30→21:39)
[2020-03-12] VITALS (96 sets, daily range): BP systolic 85–152; BP diastolic 48–105
[2020-03-12] MEDS: ACCU-CHEK COMFORT CURVE STRIP VI SCH ×4 (01:30→17:08)
[2020-03-12] MEDS: MIDAZOLAM DRIP 50 mg/50mL 50 ML IV SCH ×2 (02:42→22:50)
[2020-03-12] MEDS: PROPOFOL 100 ML IV SCH ×2 (02:42→22:30)
[2020-03-12] MEDS: fentaNYL Drip 2500mCg/250mlNS 250 ML IV SCH (03:50)
[2020-03-12 05:00] LABS: Basophils # (auto) 0 10 ^3/uL (0-0.2); Basophils % (auto) 0.4 % (0.0-2.0); Eosinophils # (auto) 0.4 10 ^3/uL (0-0.8); Eosinophils % (auto) 10.6 % (0.0-7.0); Hemoglobin 12.8 g/dL (13.5-17.5); Lymphocytes # (auto) 0.8 10 ^3/uL (0.4-5.4); Lymphocytes % (auto) 22.4 % (10.0-50.0); Mean Corpuscular Hemoglobin 30.4 pg (28.0-32.0); Mean Corpuscular Hgb Conc. 34.7 g/dL (32.0-36.0); Mean Corpuscular Volume 87.6 fL (80.0-100.0); Monocytes # (auto) 0.4 10 ^3/uL (0-1.3); Monocytes % (auto) 11.5 % (0.0-12.0); Neutrophils # (auto) 1.9 10 ^3/uL (1.6-8.6); Neutrophils % (auto) 55.1 % (37.0-80.0); Nucleated Red Blood Cells % 0.2 %; Platelet Count (auto) 155 10^3/uL (140-450); Red Blood Cells 4.22 10^6/uL (4.5-5.90); Red Cell Distribution Width 14.3 % (11.8-14.3); White Blood Cell 3.4 10^3/uL (4.4-10.8)
[2020-03-12 05:14] LABS: Potassium 3.9 mmol/L (3.5-5.1)
[2020-03-12 05:23] LABS: Albumin 2.9 g/dL (3.4-5.0); BUN/Creatinine Ratio 42.3; Bilirubin, Total 0.7 mg/dL (0.2-1.0); Calcium 8.3 mg/dL (8.5-10.1); Total Protein 6.4 g/dL (6.4-8.2)
[2020-03-12] MEDS: BUDESONIDE (INHALATION) 0.5 MG/2 ML NEB NEB SCH ×2 (05:59→22:00)
[2020-03-12] MEDS: ALBUTEROL SULF 2.5 MG/0.5ML(0.5%) NEB SOLN NEB PRN ×2 (06:00→19:35)
[2020-03-12] MEDS: InsuLIN REG 1unit/0.01ml Soln (100units/ml) SC SCH ×5 (06:00→23:31)
[2020-03-12] MEDS: METOCLOPRAMIDE HCL 5MG/ml INJ 2ml VIAL IV SCH ×3 (06:48→23:12)
[2020-03-12] MEDS: FREE WATER GT SCH ×3 (06:48→17:08)
[2020-03-12] MEDS: CEFEPIME 1 GM in SODIUM CHL 0.9% 50 ML IV SCH ×3 (06:48→23:14)
[2020-03-12] MEDS: SODIUM CHLOR 0.9% PF (SALINE LOCK) 10ML VIAL/SYR IV SCH ×3 (06:49→22:00)
[2020-03-12] MEDS: NOREPINEPHRINE 8 MG/250ML KIT 250 ML IV SCH (07:00)
[2020-03-12] MEDS: ENOXAPARIN SOD 40 MG/0.4 ML SYRINGE SC SCH ×2 (09:40→23:03)
[2020-03-12] MEDS: CHOLECALCIFEROL (VITD3) 2,000 UNIT CAP/TAB PO SCH (09:40)
[2020-03-12] MEDS: PANTOPRAZOLE 40 MG/10 ML VIAL INJ IV SCH (10:00)
[2020-03-12] MEDS: ASCORBIC ACID 1,000 MG TAB PO SCH (10:00)
[2020-03-12] MEDS ORDERED: D5W/SOD CHLO 0.9% 1,000 ML IV ONE (15:15)
[2020-03-13] VITALS (86 sets, daily range): BP systolic 67–155; BP diastolic 39–107
[2020-03-13 05:15] LABS: Basophils # (auto) 0 10 ^3/uL (0-0.2); Basophils % (auto) 0.6 % (0.0-2.0); Eosinophils # (auto) 0.3 10 ^3/uL (0-0.8); Eosinophils % (auto) 6.6 % (0.0-7.0); Hematocrit 37.7 % (41.0-53.0); Hemoglobin 12.8 g/dL (13.5-17.5); Lymphocytes # (auto) 1.4 10 ^3/uL (0.4-5.4); Lymphocytes % (auto) 29.7 % (10.0-50.0); Mean Corpuscular Hemoglobin 29.4 pg (28.0-32.0); Mean Corpuscular Volume 86.4 fL (80.0-100.0); Monocytes # (auto) 0.5 10 ^3/uL (0-1.3); Monocytes % (auto) 11.4 % (0.0-12.0); Neutrophils # (auto) 2.4 10 ^3/uL (1.6-8.6); Neutrophils % (auto) 51.7 % (37.0-80.0); Nucleated Red Blood Cells % 0.3 %; Platelet Count (auto) 157 10^3/uL (140-450); Red Blood Cells 4.36 10^6/uL (4.5-5.90); Red Cell Distribution Width 14.2 % (11.8-14.3); White Blood Cell 4.6 10^3/uL (4.4-10.8)
[2020-03-13] MEDS: FREE WATER GT SCH ×4 (06:00→17:43)
[2020-03-13] MEDS: CEFEPIME 1 GM in SODIUM CHL 0.9% 50 ML IV SCH ×3 (06:00→22:11)
[2020-03-13] MEDS: InsuLIN REG 1unit/0.01ml Soln (100units/ml) SC SCH ×3 (06:00→17:44)
[2020-03-13] MEDS: SODIUM CHLOR 0.9% PF (SALINE LOCK) 10ML VIAL/SYR IV SCH ×3 (06:00→22:11)
[2020-03-13] MEDS: ACCU-CHEK COMFORT CURVE STRIP VI SCH ×4 (06:00→17:44)
[2020-03-13] MEDS: NOREPINEPHRINE 8 MG/250ML KIT 250 ML IV SCH (07:00)
[2020-03-13] MEDS: ALBUTEROL SULF 2.5 MG/0.5ML(0.5%) NEB SOLN NEB PRN ×2 (08:09→19:26)
[2020-03-13] MEDS: BUDESONIDE (INHALATION) 0.5 MG/2 ML NEB NEB SCH ×2 (08:09→19:25)
[2020-03-13] MEDS: METOCLOPRAMIDE HCL 5MG/ml INJ 2ml VIAL IV SCH ×3 (08:29→22:09)
[2020-03-13] MEDS: CHOLECALCIFEROL (VITD3) 2,000 UNIT CAP/TAB PO SCH (10:00)
[2020-03-13] MEDS: PANTOPRAZOLE 40 MG/10 ML VIAL INJ IV SCH (10:00)
[2020-03-13] MEDS: ASCORBIC ACID 1,000 MG TAB PO SCH (10:00)
[2020-03-13] MEDS: ENOXAPARIN SOD 40 MG/0.4 ML SYRINGE SC SCH ×2 (10:00→22:09)
[2020-03-13 12:01] LABS: Albumin 2.7 g/dL (3.4-5.0); Magnesium 1.8 mg/dL (1.6-2.6); Potassium 3.6 mmol/L (3.5-5.1)
[2020-03-13 12:04] LABS: BUN/Creatinine Ratio 30.6; Bilirubin, Total 0.8 mg/dL (0.2-1.0); Total Protein 5.6 g/dL (6.4-8.2)
[2020-03-13] MEDS: fentaNYL Drip 2500mCg/250mlNS 250 ML IV SCH (17:00)
[2020-03-14] VITALS (93 sets, daily range): BP systolic 74–168; BP diastolic 44–101
[2020-03-14 04:53] LABS: Chloride 111 mmol/L (98-107); Potassium 4.1 mmol/L (3.5-5.1); Sodium 140 mmol/L (136-145)
[2020-03-14 04:58] LABS: Basophils # (auto) 0 10 ^3/uL (0-0.2); Basophils % (auto) 0.5 % (0.0-2.0); Eosinophils # (auto) 0.1 10 ^3/uL (0-0.8); Eosinophils % (auto) 0.7 % (0.0-7.0); Hematocrit 41.3 % (41.0-53.0); Hemoglobin 13.9 g/dL (13.5-17.5); Lymphocytes # (auto) 0.8 10 ^3/uL (0.4-5.4); Lymphocytes % (auto) 11.5 % (10.0-50.0); Mean Corpuscular Hemoglobin 29.3 pg (28.0-32.0); Mean Corpuscular Hgb Conc. 33.6 g/dL (32.0-36.0); Mean Corpuscular Volume 87.2 fL (80.0-100.0); Monocytes # (auto) 0.1 10 ^3/uL (0-1.3); Monocytes % (auto) 1.4 % (0.0-12.0); Neutrophils # (auto) 6.2 10 ^3/uL (1.6-8.6); Neutrophils % (auto) 85.9 % (37.0-80.0); Nucleated Red Blood Cells % 0.5 %; Platelet Count (auto) 164 10^3/uL (140-450); Red Blood Cells 4.74 10^6/uL (4.5-5.90); Red Cell Distribution Width 14.8 % (11.8-14.3); White Blood Cell 7.3 10^3/uL (4.4-10.8)
[2020-03-14 04:59] LABS: Alanine Aminotransferase 130 U/L (16-61); Anion Gap 6 (5-15); Aspartate Aminotransferase 57 U/L (15-37); BUN/Creatinine Ratio 32.6; Blood Urea Nitrogen 14 mg/dL (7-18); Calcium 8.4 mg/dL (8.5-10.1); Carbon Dioxide 23 mmol/L (21-32); GFR African American 273 mL/min; GFR Non-African American 225 mL/min; Glucose 167 mg/dL (74-106)
[2020-03-14 05:01] LABS: Alkaline Phosphatase 80 U/L (45-117); Bilirubin, Total 1.1 mg/dL (0.2-1.0); Total Protein 6.5 g/dL (6.4-8.2)
[2020-03-14] MEDS: SODIUM CHLOR 0.9% PF (SALINE LOCK) 10ML VIAL/SYR IV SCH ×3 (06:19→22:21)
[2020-03-14] MEDS: FREE WATER GT SCH ×4 (06:19→17:33)
[2020-03-14] MEDS: InsuLIN REG 1unit/0.01ml Soln (100units/ml) SC SCH ×4 (06:20→17:33)
[2020-03-14] MEDS: ACCU-CHEK COMFORT CURVE STRIP VI SCH ×4 (06:20→17:32)
[2020-03-14] MEDS: ALBUTEROL SULF 2.5 MG/0.5ML(0.5%) NEB SOLN NEB PRN ×3 (06:26→19:24)
[2020-03-14] MEDS: CEFEPIME 1 GM in SODIUM CHL 0.9% 50 ML IV SCH ×3 (06:26→22:00)
[2020-03-14] MEDS: METOCLOPRAMIDE HCL 5MG/ml INJ 2ml VIAL IV SCH ×2 (06:27→13:58)
[2020-03-14] MEDS: MIDAZOLAM DRIP 50 mg/50mL 50 ML IV SCH ×4 (07:54→23:00)
[2020-03-14] MEDS: NOREPINEPHRINE 8 MG/250ML KIT 250 ML IV SCH (08:00)
[2020-03-14] MEDS: PANTOPRAZOLE 40 MG/10 ML VIAL INJ IV SCH (10:00)
[2020-03-14] MEDS: PROPOFOL 100 ML IV SCH ×4 (10:25→23:00)
[2020-03-14] MEDS: ASCORBIC ACID 1,000 MG TAB PO SCH (10:31)
[2020-03-14] MEDS: CHOLECALCIFEROL (VITD3) 2,000 UNIT CAP/TAB PO SCH (10:32)
[2020-03-14] MEDS: ENOXAPARIN SOD 40 MG/0.4 ML SYRINGE SC SCH (10:32)
[2020-03-14] MEDS: fentaNYL Drip 2500mCg/250mlNS 250 ML IV SCH (12:27)
[2020-03-14] MEDS: BUDESONIDE (INHALATION) 0.5 MG/2 ML NEB NEB SCH ×2 (12:30→19:24)
[2020-03-15] VITALS (96 sets, daily range): BP systolic 76–176; BP diastolic 44–123
[2020-03-15] MEDS: fentaNYL Drip 2500mCg/250mlNS 250 ML IV SCH ×2 (00:30→13:41)
[2020-03-15] MEDS: METOCLOPRAMIDE HCL 5MG/ml INJ 2ml VIAL IV SCH ×4 (01:09→23:37)
[2020-03-15] MEDS: CEFEPIME 1 GM in SODIUM CHL 0.9% 50 ML IV SCH ×2 (01:09→06:27)
[2020-03-15] MEDS: ENOXAPARIN SOD 40 MG/0.4 ML SYRINGE SC SCH ×3 (01:10→23:38)
[2020-03-15] MEDS: PROPOFOL 100 ML IV SCH ×4 (02:45→23:57)
[2020-03-15] MEDS: MIDAZOLAM DRIP 50 mg/50mL 50 ML IV SCH ×2 (03:00→10:09)
[2020-03-15 04:45] LABS: Basophils # (auto) 0 10 ^3/uL (0-0.2); Basophils % (auto) 0.5 % (0.0-2.0); Eosinophils # (auto) 0.1 10 ^3/uL (0-0.8); Eosinophils % (auto) 2.2 % (0.0-7.0); Hematocrit 36.9 % (41.0-53.0); Hemoglobin 12.6 g/dL (13.5-17.5); Lymphocytes % (auto) 34.8 % (10.0-50.0); Mean Corpuscular Hemoglobin 29.5 pg (28.0-32.0); Mean Corpuscular Hgb Conc. 34.2 g/dL (32.0-36.0); Mean Corpuscular Volume 86.2 fL (80.0-100.0); Monocytes # (auto) 0.6 10 ^3/uL (0-1.3); Monocytes % (auto) 10.9 % (0.0-12.0); Neutrophils # (auto) 2.9 10 ^3/uL (1.6-8.6); Neutrophils % (auto) 51.6 % (37.0-80.0); Nucleated Red Blood Cells % 0.4 %; Platelet Count (auto) 186 10^3/uL (140-450); Red Blood Cells 4.27 10^6/uL (4.5-5.90); Red Cell Distribution Width 14.5 % (11.8-14.3); White Blood Cell 5.6 10^3/uL (4.4-10.8)
[2020-03-15 05:04] LABS: Albumin 2.7 g/dL (3.4-5.0); Calcium 8.4 mg/dL (8.5-10.1); Potassium 3.5 mmol/L (3.5-5.1)
[2020-03-15 05:09] LABS: BUN/Creatinine Ratio 35.6; Bilirubin, Total 0.7 mg/dL (0.2-1.0); Total Protein 5.9 g/dL (6.4-8.2)
[2020-03-15] MEDS: InsuLIN REG 1unit/0.01ml Soln (100units/ml) SC SCH ×6 (06:00→23:55)
[2020-03-15] MEDS: SODIUM CHLOR 0.9% PF (SALINE LOCK) 10ML VIAL/SYR IV SCH ×3 (06:23→23:37)
[2020-03-15] MEDS: FREE WATER GT SCH ×5 (06:23→23:38)
[2020-03-15] MEDS: ACCU-CHEK COMFORT CURVE STRIP VI SCH ×5 (06:28→23:55)
[2020-03-15] MEDS: NOREPINEPHRINE 8 MG/250ML KIT 250 ML IV SCH (07:00)
[2020-03-15] MEDS: PANTOPRAZOLE 40 MG/10 ML VIAL INJ IV SCH (08:17)
[2020-03-15] MEDS: CHOLECALCIFEROL (VITD3) 2,000 UNIT CAP/TAB PO SCH (08:17)
[2020-03-15] MEDS: ASCORBIC ACID 1,000 MG TAB PO SCH (08:18)
[2020-03-15] MEDS: BUDESONIDE (INHALATION) 0.5 MG/2 ML NEB NEB SCH ×2 (10:00→20:03)
[2020-03-15] MEDS: ALBUTEROL SULF 2.5 MG/0.5ML(0.5%) NEB SOLN NEB PRN (20:03)
[2020-03-16] VITALS (73 sets, daily range): BP systolic 101–192; BP diastolic 51–142
[2020-03-16 04:30] LABS: Hematocrit 36.2 % (41.0-53.0); Hemoglobin 12.6 g/dL (13.5-17.5); Mean Corpuscular Hemoglobin 29.8 pg (28.0-32.0); Mean Corpuscular Hgb Conc. 34.7 g/dL (32.0-36.0); Mean Corpuscular Volume 85.8 fL (80.0-100.0); Platelet Count (auto) 193 10^3/uL (140-450); Red Blood Cells 4.21 10^6/uL (4.5-5.90); Red Cell Distribution Width 14.9 % (11.8-14.3)
[2020-03-16] MEDS: FREE WATER GT SCH ×2 (04:37→13:02)
[2020-03-16] MEDS: PROPOFOL 100 ML IV SCH (04:38)
[2020-03-16 04:52] LABS: Potassium 3.5 mmol/L (3.5-5.1)
[2020-03-16 04:58] LABS: Albumin 2.7 g/dL (3.4-5.0); BUN/Creatinine Ratio 34.8; Bilirubin, Total 0.8 mg/dL (0.2-1.0); Calcium 8.4 mg/dL (8.5-10.1); Total Protein 5.9 g/dL (6.4-8.2)
[2020-03-16 05:16] LABS: Basophils % (manual) 0 (0.0-2.0); Blast Cells 0; Myelocytes % 0; Promyelocytes % 0; Reactive Lymphocytes 0
[2020-03-16] MEDS: ACCU-CHEK COMFORT CURVE STRIP VI SCH ×4 (06:00→22:15)
[2020-03-16] MEDS: METOCLOPRAMIDE HCL 5MG/ml INJ 2ml VIAL IV SCH ×3 (06:00→20:32)
[2020-03-16] MEDS: SODIUM CHLOR 0.9% PF (SALINE LOCK) 10ML VIAL/SYR IV SCH ×3 (06:00→20:32)
[2020-03-16] MEDS: InsuLIN REG 1unit/0.01ml Soln (100units/ml) SC SCH ×4 (06:00→23:08)
[2020-03-16 06:39] LABS: Band Neutrophils % (manual) 8; Eosinophils % (manual) 3 (0-7); Lymphocytes % (manual) 33 (10.0-50.0); Metamyelocytes % 1; Monocytes % (manual) 5 (0-12)
[2020-03-16] MEDS: NOREPINEPHRINE 8 MG/250ML KIT 250 ML IV SCH (07:00)
[2020-03-16] MEDS: BUDESONIDE (INHALATION) 0.5 MG/2 ML NEB NEB SCH ×2 (07:20→22:49)
[2020-03-16] MEDS: ALBUTEROL SULF 2.5 MG/0.5ML(0.5%) NEB SOLN NEB PRN ×2 (07:20→22:49)
[2020-03-16] MEDS: ENOXAPARIN SOD 40 MG/0.4 ML SYRINGE SC SCH ×2 (08:43→20:32)
[2020-03-16] MEDS: CHOLECALCIFEROL (VITD3) 2,000 UNIT CAP/TAB PO SCH (08:43)
[2020-03-16] MEDS: ASCORBIC ACID 1,000 MG TAB PO SCH (08:44)
[2020-03-16] MEDS: PANTOPRAZOLE 40 MG/10 ML VIAL INJ IV SCH (08:44)
[2020-03-16] MEDS: fentaNYL Drip 2500mCg/250mlNS 250 ML IV SCH (12:10)
[2020-03-16] MEDS ORDERED: FUROSEMIDE INJECTION 10 ML ONE (12:39)
[2020-03-16] MEDS ORDERED: FUROSEMIDE 100 MG/10ML VIAL IV ONE (12:45)
[2020-03-16] MEDS: LORazepam 2MG/ML-1ML VIAL IV PRN ×3 (13:31→23:09)
[2020-03-16] MEDS: MIDAZOLAM DRIP 50 mg/50mL 50 ML IV SCH (16:51)
[2020-03-16] MEDS: LABETALOL HCL 5 MG/ML 4ML SYRINGE IV PRN ×2 (17:03→20:34)
[2020-03-16] MEDS: MORPHINE SULFATE 4 MG/ML SYR/VIAL IV PRN (20:34)
[2020-03-17] VITALS (80 sets, daily range): BP systolic 60–193; BP diastolic 27–108
[2020-03-17] MEDS: LABETALOL HCL 5 MG/ML 4ML SYRINGE IV PRN ×2 (00:22→02:12)
[2020-03-17] MEDS: MORPHINE SULFATE 4 MG/ML SYR/VIAL IV PRN (02:12)
[2020-03-17] MEDS ORDERED: LORazepam 2MG/ML-1ML VIAL IV ONE (03:00)
[2020-03-17] MEDS: ACCU-CHEK COMFORT CURVE STRIP VI SCH ×3 (04:19→17:33)
[2020-03-17] MEDS: InsuLIN REG 1unit/0.01ml Soln (100units/ml) SC SCH ×3 (04:34→17:34)
[2020-03-17] MEDS: METOCLOPRAMIDE HCL 5MG/ml INJ 2ml VIAL IV SCH (04:40)
[2020-03-17] MEDS: SODIUM CHLOR 0.9% PF (SALINE LOCK) 10ML VIAL/SYR IV SCH ×3 (04:40→21:37)
[2020-03-17 04:55] LABS: Basophils # (auto) 0 10 ^3/uL (0-0.2); Basophils % (auto) 0.3 % (0.0-2.0); Eosinophils # (auto) 0 10 ^3/uL (0-0.8); Eosinophils % (auto) 0.3 % (0.0-7.0); Hematocrit 40.8 % (41.0-53.0); Hemoglobin 14.3 g/dL (13.5-17.5); Lymphocytes % (auto) 6.5 % (10.0-50.0); Mean Corpuscular Hemoglobin 29.8 pg (28.0-32.0); Mean Corpuscular Volume 85.1 fL (80.0-100.0); Monocytes # (auto) 0.8 10 ^3/uL (0-1.3); Monocytes % (auto) 5.2 % (0.0-12.0); Neutrophils % (auto) 87.7 % (37.0-80.0); Nucleated Red Blood Cells % 0.1 %; Platelet Count (auto) 226 10^3/uL (140-450); Red Cell Distribution Width 15.2 % (11.8-14.3); White Blood Cell 14.8 10^3/uL (4.4-10.8)
[2020-03-17 05:09] LABS: Potassium 3.3 mmol/L (3.5-5.1)
[2020-03-17 05:21] LABS: Albumin 3.3 g/dL (3.4-5.0); BUN/Creatinine Ratio 28.8; Bilirubin, Total 2.6 mg/dL (0.2-1.0); Calcium 8.9 mg/dL (8.5-10.1); Total Protein 7.2 g/dL (6.4-8.2)
[2020-03-17] MEDS ORDERED: dilTIAZem 25 MG/5 ML VIAL IV ONE (06:00)
[2020-03-17] MEDS: BUDESONIDE (INHALATION) 0.5 MG/2 ML NEB NEB SCH ×2 (06:15→22:00)
[2020-03-17] MEDS: NOREPINEPHRINE 8 MG/250ML KIT 250 ML IV SCH ×2 (07:00→20:00)
[2020-03-17] MEDS: FUROSEMIDE 40 MG/4 ML VIAL IV SCH (07:53)
[2020-03-17] MEDS: LORazepam 2MG/ML-1ML VIAL IV PRN (07:54)
[2020-03-17] MEDS ORDERED: SUCCINYLCHOLINE CHLORIDE 20 MG/ML 10ML VIAL IV ONE (08:27)
[2020-03-17] MEDS ORDERED: FUROSEMIDE 40 MG/4 ML VIAL IV ONE (09:00)
[2020-03-17] MEDS ORDERED: POTASSIUM CHLORIDE 40 MEQ, LIDOCAINE 1% (LOCAL ANESTH.) 4 ML in SODIUM CHL 0.9% 250 ML IV ONE (09:00)
[2020-03-17] MEDS ORDERED: ATRACURIUM BESYLATE 1,000 MG in D5W 5% 150 ML IV SCH (09:45)
[2020-03-17] MEDS: ASCORBIC ACID 1,000 MG TAB PO SCH (10:00)
[2020-03-17] MEDS: CHOLECALCIFEROL (VITD3) 2,000 UNIT CAP/TAB PO SCH (10:00)
[2020-03-17] MEDS: PANTOPRAZOLE 40 MG/10 ML VIAL INJ IV SCH (10:00)
[2020-03-17] MEDS: ENOXAPARIN SOD 40 MG/0.4 ML SYRINGE SC SCH ×2 (10:00→22:00)
[2020-03-17] MEDS ORDERED: DexAMETHasone SOD PHOS 10MG/1ML VIAL INJ IV ONE (10:15)
[2020-03-17] MEDS ORDERED: TPN PER PHARMACY 0 ML IV SCH (10:15)
[2020-03-17 10:49] LABS: Magnesium 1.4 mg/dL (1.6-2.6); Phosphorus 4.3 mg/dL (2.5-4.90)
[2020-03-17 10:53] LABS: Pre Albumin 32.2 mg/dL (20.0-40.0)
[2020-03-17] MEDS ORDERED: DEXTROSE (50%) 50ML SYRG IV SCH (12:00)
[2020-03-17] MEDS ORDERED: MAGNESIUM SULFATE 1GM/100ML 100 ML IV ONE (13:00)
[2020-03-17 14:15] LABS: INR 1.18 (0.9-1.15); Partial Thromboplastin Time 25.1 sec (23.0-31.2)
[2020-03-17] MEDS: fentaNYL Drip 2500mCg/250mlNS 250 ML IV SCH (17:21)
[2020-03-17] MEDS: MIDAZOLAM DRIP 50 mg/50mL 50 ML IV SCH ×2 (17:23→20:00)
[2020-03-17] MEDS ORDERED: TPN PER PHARMACY IV NR ×9 (20:00)
[2020-03-17] MEDS: PROPOFOL 100 ML IV SCH (20:00)
[2020-03-17] MEDS: ALBUTEROL SULF 2.5 MG/0.5ML(0.5%) NEB SOLN NEB PRN (22:35)
[2020-03-17] MEDS: ACETAMINOPHEN 650 mg PER 20.3 mL UD GT PRN (22:38)
[2020-03-18] VITALS (74 sets, daily range): BP systolic 95–136; BP diastolic 45–75
[2020-03-18] MEDS: ACCU-CHEK COMFORT CURVE STRIP VI SCH ×4 (00:15→18:00)
[2020-03-18] MEDS: InsuLIN REG 1unit/0.01ml Soln (100units/ml) SC SCH ×4 (00:16→18:00)
[2020-03-18] MEDS: PROPOFOL 100 ML IV SCH ×3 (01:14→20:00)
[2020-03-18] MEDS: NOREPINEPHRINE 8 MG/250ML KIT 250 ML IV SCH (03:33)
[2020-03-18 04:04] LABS: Basophils # (auto) 0.1 10 ^3/uL (0-0.2); Basophils % (auto) 0.4 % (0.0-2.0); Eosinophils # (auto) 0.3 10 ^3/uL (0-0.8); Hematocrit 37.6 % (41.0-53.0); Hemoglobin 12.8 g/dL (13.5-17.5); Lymphocytes # (auto) 1.8 10 ^3/uL (0.4-5.4); Lymphocytes % (auto) 14.1 % (10.0-50.0); Mean Corpuscular Volume 85.5 fL (80.0-100.0); Monocytes # (auto) 1.3 10 ^3/uL (0-1.3); Monocytes % (auto) 9.8 % (0.0-12.0); Neutrophils # (auto) 9.4 10 ^3/uL (1.6-8.6); Neutrophils % (auto) 73.7 % (37.0-80.0); Nucleated Red Blood Cells % 0.1 %; Platelet Count (auto) 228 10^3/uL (140-450); Red Cell Distribution Width 15.8 % (11.8-14.3); White Blood Cell 12.8 10^3/uL (4.4-10.8)
[2020-03-18] MEDS: ACETAMINOPHEN 650 mg PER 20.3 mL UD GT PRN (04:36)
[2020-03-18] MEDS: SODIUM CHLOR 0.9% PF (SALINE LOCK) 10ML VIAL/SYR IV SCH ×4 (06:00→22:00)
[2020-03-18] MEDS: ALBUTEROL SULF 2.5 MG/0.5ML(0.5%) NEB SOLN NEB PRN ×2 (06:27→22:01)
[2020-03-18] MEDS: BUDESONIDE (INHALATION) 0.5 MG/2 ML NEB NEB SCH ×2 (06:27→22:01)
[2020-03-18] MEDS ORDERED: DexAMETHasone SOD PHOS 10MG/1ML VIAL INJ IV SCH (10:00)
[2020-03-18] MEDS: CHOLECALCIFEROL (VITD3) 2,000 UNIT CAP/TAB PO SCH (10:15)
[2020-03-18] MEDS: ENOXAPARIN SOD 40 MG/0.4 ML SYRINGE SC SCH (10:15)
[2020-03-18] MEDS: FUROSEMIDE 40 MG/4 ML VIAL IV SCH (10:15)
[2020-03-18] MEDS: ASCORBIC ACID 1,000 MG TAB PO SCH (10:15)
[2020-03-18] MEDS: PANTOPRAZOLE 40 MG/10 ML VIAL INJ IV SCH (10:15)
[2020-03-18 10:20] LABS: Albumin 2.6 g/dL (3.4-5.0); Magnesium 2.2 mg/dL (1.6-2.6); Potassium 3.2 mmol/L (3.5-5.1)
[2020-03-18 10:24] LABS: BUN/Creatinine Ratio 12.7; Bilirubin, Total 1.6 mg/dL (0.2-1.0); Phosphorus 7.8 mg/dL (2.5-4.90); Total Protein 6.4 g/dL (6.4-8.2)
[2020-03-18] MEDS ORDERED: ALBUMIN 25% 100 ML IV ONE (11:00)
[2020-03-18] MEDS ORDERED: POTASSIUM CHL 20MEQ/100ML 100 ML IV ONE (11:00)
[2020-03-18] MEDS: SOD CHL 0.45% 1,000 ML IV SCH (14:00)
[2020-03-18] MEDS: fentaNYL Drip 2500mCg/250mlNS 250 ML IV SCH ×2 (16:00→21:14)
[2020-03-18] MEDS ORDERED: TPN PER PHARMACY IV NR ×7 (20:00)
[2020-03-18] MEDS: MIDAZOLAM DRIP 50 mg/50mL 50 ML IV SCH ×2 (22:00)
[2020-03-19] VITALS (100 sets, daily range): BP systolic 84–119; BP diastolic 47–62
[2020-03-19] MEDS: MIDAZOLAM DRIP 50 mg/50mL 50 ML IV SCH ×2 (01:30→20:00)
[2020-03-19] MEDS: SOD CHL 0.45% 1,000 ML IV SCH ×2 (04:14→19:09)
[2020-03-19] MEDS: PROPOFOL 100 ML IV SCH ×2 (05:00→13:35)
[2020-03-19] MEDS: SODIUM CHLOR 0.9% PF (SALINE LOCK) 10ML VIAL/SYR IV SCH ×5 (05:52→21:25)
[2020-03-19] MEDS: ACCU-CHEK COMFORT CURVE STRIP VI SCH ×4 (05:52→18:00)
[2020-03-19 05:56] LABS: Basophils # (auto) 0 10 ^3/uL (0-0.2); Basophils % (auto) 0.2 % (0.0-2.0); Eosinophils # (auto) 0 10 ^3/uL (0-0.8); Eosinophils % (auto) 0.1 % (0.0-7.0); Hematocrit 29.5 % (41.0-53.0); Hemoglobin 10.5 g/dL (13.5-17.5); Lymphocytes # (auto) 1.1 10 ^3/uL (0.4-5.4); Lymphocytes % (auto) 12.8 % (10.0-50.0); Mean Corpuscular Hemoglobin 30.5 pg (28.0-32.0); Mean Corpuscular Hgb Conc. 35.6 g/dL (32.0-36.0); Mean Corpuscular Volume 85.7 fL (80.0-100.0); Monocytes # (auto) 0.8 10 ^3/uL (0-1.3); Monocytes % (auto) 9.3 % (0.0-12.0); Neutrophils # (auto) 6.6 10 ^3/uL (1.6-8.6); Neutrophils % (auto) 77.6 % (37.0-80.0); Nucleated Red Blood Cells % 0.1 %; Platelet Count (auto) 183 10^3/uL (140-450); Red Blood Cells 3.44 10^6/uL (4.5-5.90); Red Cell Distribution Width 15.2 % (11.8-14.3); White Blood Cell 8.5 10^3/uL (4.4-10.8)
[2020-03-19] MEDS: InsuLIN REG 1unit/0.01ml Soln (100units/ml) SC SCH ×4 (06:00→18:00)
[2020-03-19 06:04] LABS: Potassium 3.6 mmol/L (3.5-5.1)
[2020-03-19] MEDS: BUDESONIDE (INHALATION) 0.5 MG/2 ML NEB NEB SCH ×2 (06:15→18:10)
[2020-03-19] MEDS: ALBUTEROL SULF 2.5 MG/0.5ML(0.5%) NEB SOLN NEB PRN (06:15)
[2020-03-19 06:16] LABS: Albumin 2.8 g/dL (3.4-5.0); BUN/Creatinine Ratio 13.2; Bilirubin, Total 1.2 mg/dL (0.2-1.0); Calcium 8.1 mg/dL (8.5-10.1); Magnesium 2.4 mg/dL (1.6-2.6); Phosphorus 6.6 mg/dL (2.5-4.90); Total Protein 6.1 g/dL (6.4-8.2)
[2020-03-19] MEDS: NOREPINEPHRINE 8 MG/250ML KIT 250 ML IV SCH (07:00)
[2020-03-19] MEDS: PANTOPRAZOLE 40 MG/10 ML VIAL INJ IV SCH (10:00)
[2020-03-19] MEDS: ASCORBIC ACID 1,000 MG TAB PO SCH (10:00)
[2020-03-19] MEDS: CHOLECALCIFEROL (VITD3) 2,000 UNIT CAP/TAB PO SCH (10:00)
[2020-03-19] MEDS: ENOXAPARIN SOD 30 MG/0.3 ML SYRINGE SC SCH (10:00)
[2020-03-19] MEDS: fentaNYL Drip 2500mCg/250mlNS 250 ML IV SCH (15:25)
[2020-03-19] MEDS ORDERED: TPN PER PHARMACY IV NR ×10 (20:00)
[2020-03-20] VITALS (98 sets, daily range): BP systolic 79–130; BP diastolic 41–63
[2020-03-20 05:35] LABS: Basophils # (auto) 0.1 10 ^3/uL (0-0.2); Basophils % (auto) 0.8 % (0.0-2.0); Eosinophils # (auto) 0.2 10 ^3/uL (0-0.8); Eosinophils % (auto) 3.5 % (0.0-7.0); Hematocrit 26.9 % (41.0-53.0); Hemoglobin 9.3 g/dL (13.5-17.5); Lymphocytes # (auto) 1.3 10 ^3/uL (0.4-5.4); Lymphocytes % (auto) 19.1 % (10.0-50.0); Mean Corpuscular Hemoglobin 30.2 pg (28.0-32.0); Mean Corpuscular Hgb Conc. 34.7 g/dL (32.0-36.0); Mean Corpuscular Volume 86.9 fL (80.0-100.0); Monocytes # (auto) 0.7 10 ^3/uL (0-1.3); Monocytes % (auto) 9.6 % (0.0-12.0); Neutrophils # (auto) 4.6 10 ^3/uL (1.6-8.6); Nucleated Red Blood Cells % 0.1 %; Platelet Count (auto) 160 10^3/uL (140-450); Red Cell Distribution Width 15.5 % (11.8-14.3); White Blood Cell 6.9 10^3/uL (4.4-10.8)
[2020-03-20] MEDS: InsuLIN REG 1unit/0.01ml Soln (100units/ml) SC SCH ×4 (06:00→18:12)
[2020-03-20 06:01] LABS: Calcium 8.1 mg/dL (8.5-10.1); Potassium 3.8 mmol/L (3.5-5.1)
[2020-03-20 06:08] LABS: Albumin 2.5 g/dL (3.4-5.0); BUN/Creatinine Ratio 14.3; Magnesium 2.3 mg/dL (1.6-2.6); Total Protein 5.9 g/dL (6.4-8.2)
[2020-03-20] MEDS: SODIUM CHLOR 0.9% PF (SALINE LOCK) 10ML VIAL/SYR IV SCH ×5 (06:29→22:00)
[2020-03-20] MEDS: ACCU-CHEK COMFORT CURVE STRIP VI SCH ×4 (06:29→18:12)
[2020-03-20] MEDS: NOREPINEPHRINE 8 MG/250ML KIT 250 ML IV SCH (07:00)
[2020-03-20] MEDS: SOD CHL 0.45% 1,000 ML IV SCH (08:00)
[2020-03-20] MEDS: ACETAMINOPHEN 650 mg PER 20.3 mL UD GT PRN (08:50)
[2020-03-20] MEDS: BUDESONIDE (INHALATION) 0.5 MG/2 ML NEB NEB SCH ×2 (10:00→19:06)
[2020-03-20] MEDS: PANTOPRAZOLE 40 MG/10 ML VIAL INJ IV SCH (10:00)
[2020-03-20] MEDS: PROPOFOL 100 ML IV SCH ×4 (10:22→20:00)
[2020-03-20] MEDS: ASCORBIC ACID 1,000 MG TAB PO SCH (10:23)
[2020-03-20] MEDS: ENOXAPARIN SOD 30 MG/0.3 ML SYRINGE SC SCH (10:23)
[2020-03-20] MEDS: CHOLECALCIFEROL (VITD3) 2,000 UNIT CAP/TAB PO SCH (10:23)
[2020-03-20] MEDS: ALBUTEROL SULF 2.5 MG/0.5ML(0.5%) NEB SOLN NEB PRN ×2 (11:35→19:07)
[2020-03-20] MEDS: MIDAZOLAM DRIP 50 mg/50mL 50 ML IV SCH ×2 (12:10→20:00)
[2020-03-20] MEDS: fentaNYL Drip 2500mCg/250mlNS 250 ML IV SCH ×2 (17:00→20:00)
[2020-03-20] MEDS ORDERED: TPN PER PHARMACY IV NR ×8 (20:00)
[2020-03-21] VITALS (101 sets, daily range): BP systolic 100–146; BP diastolic 52–69
[2020-03-21] MEDS: MIDAZOLAM DRIP 50 mg/50mL 50 ML IV SCH ×2 (01:00→06:00)
[2020-03-21] MEDS: ACETAMINOPHEN 650 mg PER 20.3 mL UD GT PRN (01:45)
[2020-03-21] MEDS: NOREPINEPHRINE 8 MG/250ML KIT 250 ML IV SCH (05:00)
[2020-03-21] MEDS: InsuLIN REG 1unit/0.01ml Soln (100units/ml) SC SCH ×4 (06:00→18:08)
[2020-03-21] MEDS: ACCU-CHEK COMFORT CURVE STRIP VI SCH ×4 (06:00→18:07)
[2020-03-21 06:51] LABS: Basophils # (auto) 0 10 ^3/uL (0-0.2); Basophils % (auto) 0.4 % (0.0-2.0); Eosinophils # (auto) 0.2 10 ^3/uL (0-0.8); Hematocrit 28.8 % (41.0-53.0); Hemoglobin 9.9 g/dL (13.5-17.5); Lymphocytes % (auto) 17.5 % (10.0-50.0); Mean Corpuscular Hemoglobin 29.8 pg (28.0-32.0); Mean Corpuscular Hgb Conc. 34.3 g/dL (32.0-36.0); Mean Corpuscular Volume 86.7 fL (80.0-100.0); Monocytes # (auto) 0.6 10 ^3/uL (0-1.3); Monocytes % (auto) 10.2 % (0.0-12.0); Neutrophils # (auto) 4.1 10 ^3/uL (1.6-8.6); Neutrophils % (auto) 67.9 % (37.0-80.0); Platelet Count (auto) 174 10^3/uL (140-450); Red Blood Cells 3.32 10^6/uL (4.5-5.90); Red Cell Distribution Width 15.5 % (11.8-14.3)
[2020-03-21] MEDS ORDERED: PHENYLEPHRINE HCL 10 MG/ML VL ONE ×2 (06:51→06:53)
[2020-03-21 07:04] LABS: Albumin 2.6 g/dL (3.4-5.0); Calcium 8.5 mg/dL (8.5-10.1); Magnesium 2.4 mg/dL (1.6-2.6); Potassium 4.7 mmol/L (3.5-5.1)
[2020-03-21 07:07] LABS: Bilirubin, Total 1.3 mg/dL (0.2-1.0); Phosphorus 8.1 mg/dL (2.5-4.90); Total Protein 6.3 g/dL (6.4-8.2)
[2020-03-21 07:47] LABS: CRP High Sensitivity 6.82 mg/dL (< 0.3)
[2020-03-21] MEDS: PROPOFOL 100 ML IV SCH ×3 (08:00→17:56)
[2020-03-21] MEDS: PANTOPRAZOLE 40 MG/10 ML VIAL INJ IV SCH (10:00)
[2020-03-21] MEDS: ASCORBIC ACID 1,000 MG TAB PO SCH (10:17)
[2020-03-21] MEDS: CHOLECALCIFEROL (VITD3) 2,000 UNIT CAP/TAB PO SCH (10:18)
[2020-03-21] MEDS: ENOXAPARIN SOD 30 MG/0.3 ML SYRINGE SC SCH (10:19)
[2020-03-21] MEDS: SODIUM CHLOR 0.9% PF (SALINE LOCK) 10ML VIAL/SYR IV SCH ×4 (10:19→20:53)
[2020-03-21] MEDS ORDERED: SODIUM BICARBONATE 8.4 % INJ 50ML VIAL IV ONE (12:15)
[2020-03-21] MEDS: fentaNYL Drip 2500mCg/250mlNS 250 ML IV SCH (13:46)
[2020-03-21] MEDS ORDERED: TPN PER PHARMACY IV NR ×8 (20:00)
[2020-03-21] MEDS: BUDESONIDE (INHALATION) 0.5 MG/2 ML NEB NEB SCH (22:57)
[2020-03-22] VITALS (97 sets, daily range): BP systolic 96–144; BP diastolic 52–70
[2020-03-22 03:56] LABS: Hemoglobin 9.5 g/dL (13.5-17.5); Mean Corpuscular Hemoglobin 29.4 pg (28.0-32.0); Mean Corpuscular Hgb Conc. 33.9 g/dL (32.0-36.0); Mean Corpuscular Volume 86.8 fL (80.0-100.0); Platelet Count (auto) 172 10^3/uL (140-450); Red Blood Cells 3.23 10^6/uL (4.5-5.90); Red Cell Distribution Width 15.5 % (11.8-14.3)
[2020-03-22 04:05] LABS: Basophils % (manual) 0 (0.0-2.0); Blast Cells 0; Metamyelocytes % 0; Promyelocytes % 0; Reactive Lymphocytes 0
[2020-03-22 04:12] LABS: Calcium 8.2 mg/dL (8.5-10.1)
[2020-03-22 04:20] LABS: Albumin 2.5 g/dL (3.4-5.0); Bilirubin, Total 1.1 mg/dL (0.2-1.0); Magnesium 2.5 mg/dL (1.6-2.6); Pre Albumin 26.4 mg/dL (20.0-40.0); Total Protein 6.4 g/dL (6.4-8.2)
[2020-03-22 04:40] LABS: Phosphorus 8.6 mg/dL (2.5-4.90); Potassium 5.9 mmol/L (3.5-5.1)
[2020-03-22 04:54] LABS: Band Neutrophils % (manual) 23; Eosinophils % (manual) 3 (0-7); Lymphocytes % (manual) 13 (10.0-50.0); Monocytes % (manual) 8 (0-12); Myelocytes % 4
[2020-03-22] MEDS ORDERED: SODIUM ZIRCONIUM CYCL 10 GM PAK PO ONE (05:45)
[2020-03-22] MEDS: InsuLIN REG 1unit/0.01ml Soln (100units/ml) SC SCH ×5 (06:00→23:35)
[2020-03-22] MEDS: ACCU-CHEK COMFORT CURVE STRIP VI SCH ×5 (06:00→23:35)
[2020-03-22] MEDS: SODIUM CHLOR 0.9% PF (SALINE LOCK) 10ML VIAL/SYR IV SCH ×3 (06:00→22:00)
[2020-03-22] MEDS: NOREPINEPHRINE 8 MG/250ML KIT 250 ML IV SCH (06:04)
[2020-03-22] MEDS: BUDESONIDE (INHALATION) 0.5 MG/2 ML NEB NEB SCH ×2 (08:50→19:03)
[2020-03-22] MEDS: BUMETANIDE 2.5mg/10ml (0.25 mg/ml) INJ IV SCH ×2 (10:00→18:00)
[2020-03-22] MEDS ORDERED: SODIUM CHLORIDE 0.9% 1,000 ML IV ONE (10:00)
[2020-03-22] MEDS ORDERED: CALCIUM GLUC 4.65meq/50ml D5AE 50 ML IV ONE (10:00)
[2020-03-22] MEDS ORDERED: ALBUTEROL SULF 2.5 MG/0.5ML(0.5%) NEB SOLN NEB ONE (10:00)
[2020-03-22] MEDS ORDERED: SODIUM BICARBONATE 8.4% INJ 50ML SYRINGE IV ONE (10:00)
[2020-03-22] MEDS: ASCORBIC ACID 1,000 MG TAB PO SCH (10:07)
[2020-03-22] MEDS: PANTOPRAZOLE 40 MG/10 ML VIAL INJ IV SCH (10:07)
[2020-03-22] MEDS: ENOXAPARIN SOD 30 MG/0.3 ML SYRINGE SC SCH (10:07)
[2020-03-22] MEDS: CHOLECALCIFEROL (VITD3) 2,000 UNIT CAP/TAB PO SCH (10:07)
[2020-03-22] MEDS: SODIUM ZIRCONIUM CYCL 10 GM PAK PO SCH ×2 (13:31→22:00)
[2020-03-22] MEDS: ALBUTEROL SULF 2.5 MG/0.5ML(0.5%) NEB SOLN NEB PRN ×2 (14:05→19:03)
[2020-03-22 15:34] LABS: Calcium 8.3 mg/dL (8.5-10.1)
[2020-03-22] MEDS: SODIUM BICARBONATE 50ML VIAL 150 ML in D5W 5% 1,000 ML IV SCH ×2 (15:35→21:30)
[2020-03-22] MEDS: MIDAZOLAM DRIP 50 mg/50mL 50 ML IV SCH (17:00)
[2020-03-22] MEDS: fentaNYL Drip 2500mCg/250mlNS 250 ML IV SCH (17:30)
[2020-03-22] MEDS: PROPOFOL 100 ML IV SCH (18:30)
[2020-03-22] MEDS: TPN PER PHARMACY IV NR ×9 (20:00)
[2020-03-23] VITALS (96 sets, daily range): BP systolic 85–118; BP diastolic 43–63
[2020-03-23 04:38] LABS: Hematocrit 26.3 % (41.0-53.0); Hemoglobin 9.2 g/dL (13.5-17.5); Mean Corpuscular Hemoglobin 30.3 pg (28.0-32.0); Mean Corpuscular Volume 86.4 fL (80.0-100.0); Platelet Count (auto) 161 10^3/uL (140-450); Red Blood Cells 3.04 10^6/uL (4.5-5.90); Red Cell Distribution Width 15.6 % (11.8-14.3); White Blood Cell 5.4 10^3/uL (4.4-10.8)
[2020-03-23 04:44] LABS: INR 0.98 (0.9-1.15); Partial Thromboplastin Time 23.3 sec (23.0-31.2)
[2020-03-23 04:49] LABS: Basophils % (manual) 0 (0.0-2.0); Blast Cells 0; Metamyelocytes % 0; Promyelocytes % 0; Reactive Lymphocytes 0
[2020-03-23 04:52] LABS: Albumin 2.3 g/dL (3.4-5.0); BUN/Creatinine Ratio 16.3; Calcium 7.8 mg/dL (8.5-10.1); Magnesium 2.3 mg/dL (1.6-2.6); Potassium 4.6 mmol/L (3.5-5.1)
[2020-03-23 04:55] LABS: Bilirubin, Total 0.9 mg/dL (0.2-1.0); Phosphorus 8.2 mg/dL (2.5-4.90)
[2020-03-23 05:13] LABS: Band Neutrophils % (manual) 24; Eosinophils % (manual) 4 (0-7); Lymphocytes % (manual) 23 (10.0-50.0); Monocytes % (manual) 3 (0-12); Myelocytes % 8
[2020-03-23] MEDS: SODIUM CHLOR 0.9% PF (SALINE LOCK) 10ML VIAL/SYR IV SCH ×3 (05:34→21:41)
[2020-03-23] MEDS: BUMETANIDE 2.5mg/10ml (0.25 mg/ml) INJ IV SCH (05:34)
[2020-03-23] MEDS: SODIUM ZIRCONIUM CYCL 10 GM PAK PO SCH ×3 (05:34→21:42)
[2020-03-23] MEDS: InsuLIN REG 1unit/0.01ml Soln (100units/ml) SC SCH ×4 (05:40→23:30)
[2020-03-23] MEDS: ACCU-CHEK COMFORT CURVE STRIP VI SCH ×4 (05:41→23:31)
[2020-03-23] MEDS: NOREPINEPHRINE 8 MG/250ML KIT 250 ML IV SCH ×2 (05:41→23:27)
[2020-03-23] MEDS ORDERED: BUMETANIDE 2.5mg/10ml (0.25 mg/ml) INJ IV SCH (08:00)
[2020-03-23] MEDS: ALBUTEROL SULF 2.5 MG/0.5ML(0.5%) NEB SOLN NEB PRN ×3 (08:06→19:11)
[2020-03-23] MEDS: BUDESONIDE (INHALATION) 0.5 MG/2 ML NEB NEB SCH ×2 (08:06→19:11)
[2020-03-23] MEDS: PANTOPRAZOLE 40 MG/10 ML VIAL INJ IV SCH (09:40)
[2020-03-23] MEDS: ASCORBIC ACID 1,000 MG TAB PO SCH (09:40)
[2020-03-23] MEDS: CHOLECALCIFEROL (VITD3) 2,000 UNIT CAP/TAB PO SCH (09:41)
[2020-03-23] MEDS: ENOXAPARIN SOD 30 MG/0.3 ML SYRINGE SC SCH (09:41)
[2020-03-23] MEDS: PROPOFOL 100 ML IV SCH (10:12)
[2020-03-23] MEDS: MIDAZOLAM DRIP 50 mg/50mL 50 ML IV SCH (17:19)
[2020-03-23] MEDS: fentaNYL Drip 2500mCg/250mlNS 250 ML IV SCH (18:09)
[2020-03-23] MEDS: ALBUMIN 25% 100 ML IV SCH (19:00)
[2020-03-23] MEDS: TPN PER PHARMACY IV NR ×9 (19:53)
[2020-03-23] MEDS ORDERED: TPN PER PHARMACY IV NR ×8 (20:00)
[2020-03-23] MEDS: DOCUSATE ORAL LIQUID 100 MG/10 ML UD GT SCH (21:41)
[2020-03-24] VITALS (98 sets, daily range): BP systolic 91–138; BP diastolic 52–86
[2020-03-24] MEDS: ALBUMIN 25% 100 ML IV SCH ×2 (02:45→10:11)
[2020-03-24] MEDS: SODIUM CHLOR 0.9% PF (SALINE LOCK) 10ML VIAL/SYR IV SCH ×3 (05:05→22:00)
[2020-03-24] MEDS: SODIUM ZIRCONIUM CYCL 10 GM PAK PO SCH (05:15)
[2020-03-24] MEDS: InsuLIN REG 1unit/0.01ml Soln (100units/ml) SC SCH ×4 (05:45→23:51)
[2020-03-24] MEDS: ACCU-CHEK COMFORT CURVE STRIP VI SCH ×4 (05:46→23:52)
[2020-03-24] MEDS: BUDESONIDE (INHALATION) 0.5 MG/2 ML NEB NEB SCH ×2 (07:06→22:08)
[2020-03-24] MEDS: ALBUTEROL SULF 2.5 MG/0.5ML(0.5%) NEB SOLN NEB PRN ×2 (07:06→22:09)
[2020-03-24 09:36] LABS: Albumin 2.4 g/dL (3.4-5.0); Calcium 7.8 mg/dL (8.5-10.1); Magnesium 2.5 mg/dL (1.6-2.6); Potassium 5.3 mmol/L (3.5-5.1)
[2020-03-24 09:39] LABS: BUN/Creatinine Ratio 17.3; Bilirubin, Total 0.8 mg/dL (0.2-1.0); Phosphorus 7.9 mg/dL (2.5-4.90); Total Protein 6.2 g/dL (6.4-8.2)
[2020-03-24] MEDS: PANTOPRAZOLE 40 MG/10 ML VIAL INJ IV SCH (10:00)
[2020-03-24] MEDS: ENOXAPARIN SOD 30 MG/0.3 ML SYRINGE SC SCH (10:10)
[2020-03-24] MEDS: ASCORBIC ACID 1,000 MG TAB PO SCH (10:10)
[2020-03-24] MEDS: CHOLECALCIFEROL (VITD3) 2,000 UNIT CAP/TAB PO SCH (10:10)
[2020-03-24] MEDS: DOCUSATE ORAL LIQUID 100 MG/10 ML UD GT SCH ×2 (10:10→22:00)
[2020-03-24 10:28] LABS: Basophils # (auto) 0 10 ^3/uL (0-0.2); Basophils % (auto) 0.5 % (0.0-2.0); Eosinophils # (auto) 0.3 10 ^3/uL (0-0.8); Eosinophils % (auto) 4.3 % (0.0-7.0); Hematocrit 24.5 % (41.0-53.0); Hemoglobin 8.5 g/dL (13.5-17.5); Lymphocytes # (auto) 0.9 10 ^3/uL (0.4-5.4); Lymphocytes % (auto) 13.6 % (10.0-50.0); Mean Corpuscular Hemoglobin 29.8 pg (28.0-32.0); Mean Corpuscular Hgb Conc. 34.8 g/dL (32.0-36.0); Mean Corpuscular Volume 85.6 fL (80.0-100.0); Monocytes # (auto) 0.7 10 ^3/uL (0-1.3); Monocytes % (auto) 10.8 % (0.0-12.0); Neutrophils # (auto) 4.7 10 ^3/uL (1.6-8.6); Neutrophils % (auto) 70.8 % (37.0-80.0); Platelet Count (auto) 200 10^3/uL (140-450); Red Blood Cells 2.87 10^6/uL (4.5-5.90); Red Cell Distribution Width 15.5 % (11.8-14.3); White Blood Cell 6.7 10^3/uL (4.4-10.8)
[2020-03-24] MEDS ORDERED: SODIUM CHLORIDE 0.9% 1,000 ML IV ONE (10:45)
[2020-03-24] MEDS ORDERED: SODIUM BICARBONATE 8.4 % INJ 50ML VIAL IV ONE (10:45)
[2020-03-24] MEDS ORDERED: BUMETANIDE 2.5mg/10ml (0.25 mg/ml) INJ IV ONE (10:45)
[2020-03-24] MEDS ORDERED: HEPARIN SODIUM (PORCINE) 5000 UNITS/ML 1ML VIAL ONE (11:44)
[2020-03-24] MEDS ORDERED: HEPARIN 1,000 UNITS/ml 1ML VIAL ONE (11:51)
[2020-03-24] MEDS: SODIUM BICARBONATE 50ML VIAL 150 ML in D5W 5% 1,000 ML IV SCH ×2 (15:00→22:45)
[2020-03-24] MEDS: MIDAZOLAM DRIP 50 mg/50mL 50 ML IV SCH (17:00)
[2020-03-24] MEDS: fentaNYL Drip 2500mCg/250mlNS 250 ML IV SCH (17:09)
[2020-03-24] MEDS: PROPOFOL 100 ML IV SCH (18:30)
[2020-03-24] MEDS ORDERED: TPN PER PHARMACY IV NR ×9 (20:00)
[2020-03-25] VITALS (85 sets, daily range): BP systolic 85–129; BP diastolic 41–76
[2020-03-25 05:01] LABS: Basophils # (auto) 0.1 10 ^3/uL (0-0.2); Eosinophils # (auto) 0.6 10 ^3/uL (0-0.8); Eosinophils % (auto) 4.4 % (0.0-7.0); Mean Corpuscular Volume 85.3 fL (80.0-100.0); Nucleated Red Blood Cells % 0.1 %
[2020-03-25 05:03] LABS: Basophils % (auto) 0.6 % (0.0-2.0); Hematocrit 22.7 % (41.0-53.0); Lymphocytes # (auto) 1.2 10 ^3/uL (0.4-5.4); Lymphocytes % (auto) 8.8 % (10.0-50.0); Mean Corpuscular Hemoglobin 30.1 pg (28.0-32.0); Mean Corpuscular Hgb Conc. 35.3 g/dL (32.0-36.0); Neutrophils # (auto) 10.2 10 ^3/uL (1.6-8.6); Neutrophils % (auto) 78.2 % (37.0-80.0); Platelet Count (auto) 229 10^3/uL (140-450); Red Blood Cells 2.66 10^6/uL (4.5-5.90); Red Cell Distribution Width 15.7 % (11.8-14.3); White Blood Cell 13.1 10^3/uL (4.4-10.8)
[2020-03-25 05:33] LABS: Magnesium 2.4 mg/dL (1.6-2.6); Potassium 3.7 mmol/L (3.5-5.1)
[2020-03-25 05:36] LABS: BUN/Creatinine Ratio 18.2; Phosphorus 7.4 mg/dL (2.5-4.90); Total Protein 6.6 g/dL (6.4-8.2)
[2020-03-25] MEDS: SODIUM CHLOR 0.9% PF (SALINE LOCK) 10ML VIAL/SYR IV SCH ×3 (06:00→22:00)
[2020-03-25] MEDS: ACCU-CHEK COMFORT CURVE STRIP VI SCH ×3 (06:00→16:49)
[2020-03-25] MEDS: InsuLIN REG 1unit/0.01ml Soln (100units/ml) SC SCH ×3 (06:00→16:50)
[2020-03-25] MEDS: ALBUTEROL SULF 2.5 MG/0.5ML(0.5%) NEB SOLN NEB PRN ×2 (06:29→22:16)
[2020-03-25] MEDS: BUDESONIDE (INHALATION) 0.5 MG/2 ML NEB NEB SCH ×2 (06:29→22:16)
[2020-03-25] MEDS: NOREPINEPHRINE 8 MG/250ML KIT 250 ML IV SCH ×2 (06:43→20:00)
[2020-03-25] MEDS ORDERED: SODIUM CHL 0.9% 1000 ML BAG XX ONE (07:00)
[2020-03-25] MEDS ORDERED: CHOLECALCIFEROL (VITD3) 1,000UNIT=25mCg TAB ONE (09:15)
[2020-03-25] MEDS: ASCORBIC ACID 1,000 MG TAB PO SCH (10:00)
[2020-03-25] MEDS: CHOLECALCIFEROL (VITD3) 1,000UNIT=25mCg TAB PO SCH (10:00)
[2020-03-25] MEDS: PANTOPRAZOLE 40 MG/10 ML VIAL INJ IV SCH (10:00)
[2020-03-25] MEDS: ENOXAPARIN SOD 30 MG/0.3 ML SYRINGE SC SCH (10:00)
[2020-03-25] MEDS: DOCUSATE ORAL LIQUID 100 MG/10 ML UD GT SCH ×2 (10:00→21:02)
[2020-03-25] MEDS: MIDAZOLAM DRIP 50 mg/50mL 50 ML IV SCH (16:15)
[2020-03-25] MEDS: SODIUM BICARBONATE 50ML VIAL 150 ML in D5W 5% 1,000 ML IV SCH (16:41)
[2020-03-25] MEDS: fentaNYL Drip 2500mCg/250mlNS 250 ML IV SCH (16:48)
[2020-03-25] MEDS: PROPOFOL 100 ML IV SCH (19:30)
[2020-03-25] MEDS: TPN PER PHARMACY IV NR ×9 (20:30)
[2020-03-25] MEDS: FAMOTIDINE (10MG/ML) 2ML VL IV SCH (21:02)
[2020-03-26] VITALS (85 sets, daily range): BP systolic 81–158; BP diastolic 30–115
[2020-03-26] MEDS: PROPOFOL 100 ML IV SCH ×6 (00:17→23:25)
[2020-03-26] MEDS: MIDAZOLAM DRIP 50 mg/50mL 50 ML IV SCH ×4 (00:20→23:24)
[2020-03-26] MEDS: InsuLIN REG 1unit/0.01ml Soln (100units/ml) SC SCH ×4 (00:29→17:50)
[2020-03-26] MEDS: fentaNYL Drip 2500mCg/250mlNS 250 ML IV SCH ×2 (04:05→15:38)
[2020-03-26 05:03] LABS: Basophils # (auto) 0 10 ^3/uL (0-0.2); Hemoglobin 8.1 g/dL (13.5-17.5); Mean Corpuscular Hemoglobin 29.5 pg (28.0-32.0); Mean Corpuscular Volume 86.5 fL (80.0-100.0); Monocytes # (auto) 0.6 10 ^3/uL (0-1.3); Monocytes % (auto) 8.4 % (0.0-12.0); Nucleated Red Blood Cells % 0.1 %
[2020-03-26 05:04] LABS: Basophils % (auto) 0.6 % (0.0-2.0); Eosinophils # (auto) 0.4 10 ^3/uL (0-0.8); Eosinophils % (auto) 5.4 % (0.0-7.0); Hematocrit 23.6 % (41.0-53.0); Lymphocytes # (auto) 0.6 10 ^3/uL (0.4-5.4); Lymphocytes % (auto) 8.9 % (10.0-50.0); Mean Corpuscular Hgb Conc. 34.1 g/dL (32.0-36.0); Neutrophils # (auto) 5.5 10 ^3/uL (1.6-8.6); Neutrophils % (auto) 76.7 % (37.0-80.0); Platelet Count (auto) 216 10^3/uL (140-450); Red Blood Cells 2.73 10^6/uL (4.5-5.90); Red Cell Distribution Width 15.8 % (11.8-14.3); White Blood Cell 7.2 10^3/uL (4.4-10.8)
[2020-03-26 05:22] LABS: Albumin 2.4 g/dL (3.4-5.0); Calcium 7.6 mg/dL (8.5-10.1)
[2020-03-26 05:26] LABS: BUN/Creatinine Ratio 17.6; Bilirubin, Total 0.9 mg/dL (0.2-1.0); Phosphorus 4.7 mg/dL (2.5-4.90); Total Protein 5.8 g/dL (6.4-8.2)
[2020-03-26 05:49] LABS: INR 1.03 (0.9-1.15); Partial Thromboplastin Time 28.6 sec (23.0-31.2)
[2020-03-26] MEDS: ACCU-CHEK COMFORT CURVE STRIP VI SCH ×4 (06:00→17:49)
[2020-03-26] MEDS: SODIUM CHLOR 0.9% PF (SALINE LOCK) 10ML VIAL/SYR IV SCH ×3 (06:00→21:26)
[2020-03-26] MEDS: BUDESONIDE (INHALATION) 0.5 MG/2 ML NEB NEB SCH ×2 (08:30→19:16)
[2020-03-26] MEDS ORDERED: POTASSIUM EFFERVESENT TAB 25 MEQ PO ONE (09:00)
[2020-03-26] MEDS: FAMOTIDINE (10MG/ML) 2ML VL IV SCH ×2 (10:19→21:26)
[2020-03-26] MEDS: ASCORBIC ACID 1,000 MG TAB PO SCH (10:19)
[2020-03-26] MEDS: DOCUSATE ORAL LIQUID 100 MG/10 ML UD GT SCH ×2 (10:19→21:26)
[2020-03-26] MEDS: CHOLECALCIFEROL (VITD3) 1,000UNIT=25mCg TAB PO SCH (10:22)
[2020-03-26] MEDS: ALBUTEROL SULF 2.5 MG/0.5ML(0.5%) NEB SOLN NEB PRN (19:16)
[2020-03-26] MEDS: TPN PER PHARMACY IV NR ×9 (19:46)
[2020-03-26] MEDS: NOREPINEPHRINE 8 MG/250ML KIT 250 ML IV SCH (19:53)
[2020-03-26] MEDS ORDERED: TPN PER PHARMACY IV NR ×7 (20:00)
[2020-03-27] VITALS (78 sets, daily range): BP systolic 87–134; BP diastolic 50–83
[2020-03-27] MEDS: MIDAZOLAM DRIP 50 mg/50mL 50 ML IV SCH ×6 (00:36→21:00)
[2020-03-27] MEDS: PROPOFOL 100 ML IV SCH ×8 (02:09→22:43)
[2020-03-27] MEDS: fentaNYL Drip 2500mCg/250mlNS 250 ML IV SCH ×2 (04:20→15:16)
[2020-03-27] MEDS: SODIUM CHLOR 0.9% PF (SALINE LOCK) 10ML VIAL/SYR IV SCH ×3 (06:13→22:21)
[2020-03-27] MEDS: ACCU-CHEK COMFORT CURVE STRIP VI SCH ×5 (06:26→23:58)
[2020-03-27] MEDS: InsuLIN REG 1unit/0.01ml Soln (100units/ml) SC SCH ×5 (06:26→23:58)
[2020-03-27] MEDS ORDERED: SODIUM CHL 0.9% 1000 ML BAG XX ONE (07:00)
[2020-03-27] MEDS ORDERED: ALBUMIN 25% 100 ML IV ONE (08:00)
[2020-03-27] MEDS ORDERED: ALBUMIN 25% 100 ML IV SCH (09:00)
[2020-03-27 09:05] LABS: Albumin 2.3 g/dL (3.4-5.0); Magnesium 2.2 mg/dL (1.6-2.6); Potassium 3.4 mmol/L (3.5-5.1)
[2020-03-27 09:09] LABS: BUN/Creatinine Ratio 18.5; Phosphorus 4.2 mg/dL (2.5-4.90); Total Protein 6.1 g/dL (6.4-8.2)
[2020-03-27] MEDS: DOCUSATE ORAL LIQUID 100 MG/10 ML UD GT SCH ×2 (09:13→22:21)
[2020-03-27] MEDS: FAMOTIDINE (10MG/ML) 2ML VL IV SCH ×2 (09:14→22:21)
[2020-03-27] MEDS: ASCORBIC ACID 1,000 MG TAB PO SCH (09:14)
[2020-03-27] MEDS: CHOLECALCIFEROL (VITD3) 1,000UNIT=25mCg TAB PO SCH (09:14)
[2020-03-27] MEDS: BUDESONIDE (INHALATION) 0.5 MG/2 ML NEB NEB SCH ×2 (10:44→21:33)
[2020-03-27] MEDS: ALBUTEROL SULF 2.5 MG/0.5ML(0.5%) NEB SOLN NEB PRN ×2 (10:44→21:34)
[2020-03-27] MEDS ORDERED: POTASSIUM CHL 20MEQ/100ML 100 ML IV ONE (10:45)
[2020-03-27 13:28] LABS: Basophils # (auto) 0 10 ^3/uL (0-0.2); Lymphocytes # (auto) 0.7 10 ^3/uL (0.4-5.4); White Blood Cell 9.6 10^3/uL (4.4-10.8)
[2020-03-27 13:30] LABS: Basophils % (auto) 0.1 % (0.0-2.0); Eosinophils # (auto) 0.6 10 ^3/uL (0-0.8); Eosinophils % (auto) 5.8 % (0.0-7.0); Hemoglobin 8.3 g/dL (13.5-17.5); Lymphocytes % (auto) 7.7 % (10.0-50.0); Mean Corpuscular Hemoglobin 29.9 pg (28.0-32.0); Mean Corpuscular Hgb Conc. 34.5 g/dL (32.0-36.0); Mean Corpuscular Volume 86.6 fL (80.0-100.0); Monocytes # (auto) 0.7 10 ^3/uL (0-1.3); Monocytes % (auto) 7.1 % (0.0-12.0); Neutrophils # (auto) 7.6 10 ^3/uL (1.6-8.6); Neutrophils % (auto) 79.3 % (37.0-80.0); Platelet Count (auto) 274 10^3/uL (140-450); Red Blood Cells 2.77 10^6/uL (4.5-5.90)
[2020-03-27] MEDS: CEFEPIME 2 GM in SODIUM CHL 0.9% 50 ML IV SCH (16:37)
[2020-03-27] MEDS ORDERED: TPN PER PHARMACY IV NR ×8 (20:00)
[2020-03-27] MEDS ORDERED: EPOETIN ALFA 10,000 UNIT/1 ML VIAL SC ONE (21:00)
[2020-03-27] MEDS ORDERED: CEFEPIME 1 GM in SODIUM CHL 0.9% 50 ML IV SCH (22:00)
[2020-03-27] MEDS: LINEZOLID 600MG/300ML 300 ML IV SCH (22:21)
[2020-03-28] VITALS (101 sets, daily range): BP systolic 80–160; BP diastolic 47–91
[2020-03-28] MEDS: MIDAZOLAM DRIP 50 mg/50mL 50 ML IV SCH ×4 (02:46→19:47)
[2020-03-28] MEDS: fentaNYL Drip 2500mCg/250mlNS 250 ML IV SCH ×2 (02:49→18:31)
[2020-03-28] MEDS: PROPOFOL 100 ML IV SCH ×5 (04:28→23:18)
[2020-03-28 06:05] LABS: Magnesium 2.2 mg/dL (1.6-2.6)
[2020-03-28 06:12] LABS: Phosphorus 4.9 mg/dL (2.5-4.90); Pre Albumin 20.5 mg/dL (20.0-40.0)
[2020-03-28] MEDS: InsuLIN REG 1unit/0.01ml Soln (100units/ml) SC SCH ×4 (06:27→23:50)
[2020-03-28] MEDS: NOREPINEPHRINE 8 MG/250ML KIT 250 ML IV SCH ×2 (06:33→17:06)
[2020-03-28] MEDS: ACCU-CHEK COMFORT CURVE STRIP VI SCH ×4 (06:33→23:50)
[2020-03-28] MEDS: SODIUM CHLOR 0.9% PF (SALINE LOCK) 10ML VIAL/SYR IV SCH ×3 (06:33→22:21)
[2020-03-28] MEDS: BUDESONIDE (INHALATION) 0.5 MG/2 ML NEB NEB SCH ×2 (06:48→17:59)
[2020-03-28] MEDS: ALBUTEROL SULF 2.5 MG/0.5ML(0.5%) NEB SOLN NEB PRN (06:50)
[2020-03-28 08:09] LABS: Albumin 2.1 g/dL (3.4-5.0); Calcium 8.1 mg/dL (8.5-10.1); Potassium 3.4 mmol/L (3.5-5.1)
[2020-03-28 08:12] LABS: BUN/Creatinine Ratio 15.9; Bilirubin, Total 0.8 mg/dL (0.2-1.0); Total Protein 5.7 g/dL (6.4-8.2)
[2020-03-28] MEDS: LINEZOLID 600MG/300ML 300 ML IV SCH ×2 (09:38→22:21)
[2020-03-28] MEDS: DOCUSATE ORAL LIQUID 100 MG/10 ML UD GT SCH ×2 (09:38→22:21)
[2020-03-28] MEDS: FAMOTIDINE (10MG/ML) 2ML VL IV SCH ×2 (09:39→22:21)
[2020-03-28] MEDS: CHOLECALCIFEROL (VITD3) 1,000UNIT=25mCg TAB PO SCH (09:39)
[2020-03-28] MEDS: ASCORBIC ACID 1,000 MG TAB PO SCH (09:39)
[2020-03-28] MEDS ORDERED: POTASSIUM CHL 20MEQ/100ML 100 ML IV ONE (12:30)
[2020-03-28] MEDS: ACETAMINOPHEN 650 mg PER 20.3 mL UD GT PRN (12:40)
[2020-03-28] MEDS: CEFEPIME 2 GM in SODIUM CHL 0.9% 50 ML IV SCH (17:01)
[2020-03-28] MEDS ORDERED: TPN PER PHARMACY IV NR ×6 (20:00)
[2020-03-29] VITALS (65 sets, daily range): BP systolic 96–148; BP diastolic 63–93
[2020-03-29] MEDS: PROPOFOL 100 ML IV SCH ×4 (04:26→19:30)
[2020-03-29] MEDS: SODIUM CHLOR 0.9% PF (SALINE LOCK) 10ML VIAL/SYR IV SCH ×3 (05:25→21:57)
[2020-03-29] MEDS: ACCU-CHEK COMFORT CURVE STRIP VI SCH ×3 (05:25→17:23)
[2020-03-29] MEDS: InsuLIN REG 1unit/0.01ml Soln (100units/ml) SC SCH ×3 (05:55→17:23)
[2020-03-29] MEDS: ALBUTEROL SULF 2.5 MG/0.5ML(0.5%) NEB SOLN NEB PRN ×2 (06:12→13:30)
[2020-03-29] MEDS: BUDESONIDE (INHALATION) 0.5 MG/2 ML NEB NEB SCH ×2 (06:12→21:45)
[2020-03-29 06:15] LABS: Basophils # (auto) 0 10 ^3/uL (0-0.2); Basophils % (auto) 0.3 % (0.0-2.0); Eosinophils # (auto) 0.7 10 ^3/uL (0-0.8); Eosinophils % (auto) 7.1 % (0.0-7.0); Hematocrit 22.8 % (41.0-53.0); Hemoglobin 7.8 g/dL (13.5-17.5); Lymphocytes # (auto) 0.8 10 ^3/uL (0.4-5.4); Lymphocytes % (auto) 8.5 % (10.0-50.0); Mean Corpuscular Hemoglobin 30.2 pg (28.0-32.0); Mean Corpuscular Hgb Conc. 34.4 g/dL (32.0-36.0); Mean Corpuscular Volume 87.7 fL (80.0-100.0); Monocytes # (auto) 0.7 10 ^3/uL (0-1.3); Monocytes % (auto) 6.9 % (0.0-12.0); Neutrophils # (auto) 7.5 10 ^3/uL (1.6-8.6); Neutrophils % (auto) 77.2 % (37.0-80.0); Platelet Count (auto) 255 10^3/uL (140-450); Red Cell Distribution Width 16.5 % (11.8-14.3); White Blood Cell 9.7 10^3/uL (4.4-10.8)
[2020-03-29 06:29] LABS: Potassium 3.6 mmol/L (3.5-5.1)
[2020-03-29 07:03] LABS: Albumin 2.1 g/dL (3.4-5.0); BUN/Creatinine Ratio 16.9; Bilirubin, Total 1.1 mg/dL (0.2-1.0); Calcium 8.3 mg/dL (8.5-10.1); Magnesium 2.2 mg/dL (1.6-2.6); Phosphorus 5.3 mg/dL (2.5-4.90); Total Protein 5.9 g/dL (6.4-8.2)
[2020-03-29] MEDS: MIDAZOLAM DRIP 50 mg/50mL 50 ML IV SCH ×2 (07:51→13:02)
[2020-03-29] MEDS: fentaNYL Drip 2500mCg/250mlNS 250 ML IV SCH (08:01)
[2020-03-29] MEDS: FAMOTIDINE (10MG/ML) 2ML VL IV SCH ×2 (10:25→21:57)
[2020-03-29] MEDS: DOCUSATE ORAL LIQUID 100 MG/10 ML UD GT SCH ×2 (10:25→21:58)
[2020-03-29] MEDS: ASCORBIC ACID 1,000 MG TAB PO SCH (10:26)
[2020-03-29] MEDS: CHOLECALCIFEROL (VITD3) 1,000UNIT=25mCg TAB PO SCH (10:26)
[2020-03-29] MEDS: LINEZOLID 600MG/300ML 300 ML IV SCH ×2 (10:26→21:57)
[2020-03-29] MEDS: CEFEPIME 2 GM in SODIUM CHL 0.9% 50 ML IV SCH (16:26)
[2020-03-29] MEDS ORDERED: TPN PER PHARMACY IV NR ×8 (20:00)
[2020-03-30] VITALS (54 sets, daily range): BP systolic 91–155; BP diastolic 60–92
[2020-03-30] MEDS: PROPOFOL 100 ML IV SCH ×6 (00:21→23:15)
[2020-03-30] MEDS: ACCU-CHEK COMFORT CURVE STRIP VI SCH ×4 (00:23→18:18)
[2020-03-30] MEDS: fentaNYL Drip 2500mCg/250mlNS 250 ML IV SCH ×2 (00:42→18:23)
[2020-03-30] MEDS: InsuLIN REG 1unit/0.01ml Soln (100units/ml) SC SCH ×4 (00:43→18:00)
[2020-03-30] MEDS: MIDAZOLAM DRIP 50 mg/50mL 50 ML IV SCH ×4 (03:56→18:56)
[2020-03-30 04:27] LABS: Basophils # (auto) 0 10 ^3/uL (0-0.2); Basophils % (auto) 0.2 % (0.0-2.0); Eosinophils # (auto) 0.8 10 ^3/uL (0-0.8); Eosinophils % (auto) 9.3 % (0.0-7.0); Hematocrit 23.6 % (41.0-53.0); Hemoglobin 7.9 g/dL (13.5-17.5); Lymphocytes # (auto) 0.6 10 ^3/uL (0.4-5.4); Lymphocytes % (auto) 6.2 % (10.0-50.0); Mean Corpuscular Hemoglobin 29.4 pg (28.0-32.0); Mean Corpuscular Hgb Conc. 33.4 g/dL (32.0-36.0); Mean Corpuscular Volume 87.9 fL (80.0-100.0); Monocytes # (auto) 0.7 10 ^3/uL (0-1.3); Monocytes % (auto) 7.9 % (0.0-12.0); Neutrophils # (auto) 6.9 10 ^3/uL (1.6-8.6); Neutrophils % (auto) 76.4 % (37.0-80.0); Platelet Count (auto) 246 10^3/uL (140-450); Red Blood Cells 2.69 10^6/uL (4.5-5.90); Red Cell Distribution Width 16.4 % (11.8-14.3)
[2020-03-30 04:50] LABS: Calcium 8.4 mg/dL (8.5-10.1); Magnesium 2.2 mg/dL (1.6-2.6); Potassium 3.6 mmol/L (3.5-5.1)
[2020-03-30 04:54] LABS: BUN/Creatinine Ratio 17.8; Bilirubin, Total 1.1 mg/dL (0.2-1.0); Phosphorus 6.2 mg/dL (2.5-4.90)
[2020-03-30] MEDS: BUDESONIDE (INHALATION) 0.5 MG/2 ML NEB NEB SCH ×2 (06:41→07:00)
[2020-03-30] MEDS: ALBUTEROL SULF 2.5 MG/0.5ML(0.5%) NEB SOLN NEB PRN (06:41)
[2020-03-30] MEDS: SODIUM CHLOR 0.9% PF (SALINE LOCK) 10ML VIAL/SYR IV SCH ×3 (06:41→22:14)
[2020-03-30] MEDS: NOREPINEPHRINE 8 MG/250ML KIT 250 ML IV SCH (07:00)
[2020-03-30] MEDS: DOCUSATE ORAL LIQUID 100 MG/10 ML UD GT SCH ×2 (09:28→22:15)
[2020-03-30] MEDS: FAMOTIDINE (10MG/ML) 2ML VL IV SCH ×2 (09:28→22:15)
[2020-03-30] MEDS: ASCORBIC ACID 1,000 MG TAB PO SCH (09:29)
[2020-03-30] MEDS: CHOLECALCIFEROL (VITD3) 1,000UNIT=25mCg TAB PO SCH (09:29)
[2020-03-30] MEDS: LINEZOLID 600MG/300ML 300 ML IV SCH ×2 (09:29→22:15)
[2020-03-30] MEDS: CEFEPIME 2 GM in SODIUM CHL 0.9% 50 ML IV SCH (16:27)
[2020-03-30] MEDS: diphenhdrAMINE HCL 50 MG/1 ML VL IV PRN (17:30)
[2020-03-30] MEDS ORDERED: TPN PER PHARMACY IV NR ×7 (20:00)
[2020-03-30] MEDS ORDERED: EPOETIN ALFA 4,000 UNIT/ML VL SC ONE (21:00)
[2020-03-31] VITALS (76 sets, daily range): BP systolic 95–161; BP diastolic 54–98
[2020-03-31] MEDS: ACCU-CHEK COMFORT CURVE STRIP VI SCH ×4 (00:27→17:36)
[2020-03-31] MEDS: InsuLIN REG 1unit/0.01ml Soln (100units/ml) SC SCH ×4 (00:28→17:35)
[2020-03-31] MEDS: MIDAZOLAM DRIP 50 mg/50mL 50 ML IV SCH ×2 (01:26→06:53)
[2020-03-31] MEDS: diphenhdrAMINE HCL 50 MG/1 ML VL IV PRN (01:35)
[2020-03-31] MEDS: PROPOFOL 100 ML IV SCH ×3 (03:19→21:15)
[2020-03-31] MEDS: SODIUM CHLOR 0.9% PF (SALINE LOCK) 10ML VIAL/SYR IV SCH ×3 (05:32→22:00)
[2020-03-31 06:03] LABS: Potassium 3.2 mmol/L (3.5-5.1)
[2020-03-31 06:10] LABS: Albumin 2.1 g/dL (3.4-5.0); Calcium 7.9 mg/dL (8.5-10.1); Magnesium 2.1 mg/dL (1.6-2.6); Total Protein 5.9 g/dL (6.4-8.2)
[2020-03-31] MEDS: NOREPINEPHRINE 8 MG/250ML KIT 250 ML IV SCH ×2 (07:00→10:48)
[2020-03-31] MEDS: BUDESONIDE (INHALATION) 0.5 MG/2 ML NEB NEB SCH ×2 (08:50→19:02)
[2020-03-31] MEDS: ALBUTEROL SULF 2.5 MG/0.5ML(0.5%) NEB SOLN NEB PRN (09:49)
[2020-03-31] MEDS: DOCUSATE ORAL LIQUID 100 MG/10 ML UD GT SCH ×2 (10:09→22:00)
[2020-03-31] MEDS: ASCORBIC ACID 1,000 MG TAB PO SCH (10:09)
[2020-03-31] MEDS: FAMOTIDINE (10MG/ML) 2ML VL IV SCH ×2 (10:09→22:00)
[2020-03-31] MEDS: LINEZOLID 600MG/300ML 300 ML IV SCH ×2 (10:09→22:00)
[2020-03-31] MEDS: CHOLECALCIFEROL (VITD3) 1,000UNIT=25mCg TAB PO SCH (10:09)
[2020-03-31] MEDS: fentaNYL Drip 2500mCg/250mlNS 250 ML IV SCH ×2 (10:20→21:15)
[2020-03-31] MEDS ORDERED: POTASSIUM CHL 20MEQ/100ML 100 ML IV ONE (11:30)
[2020-03-31] MEDS: CEFEPIME 2 GM in SODIUM CHL 0.9% 50 ML IV SCH (17:16)
[2020-03-31] MEDS ORDERED: TPN PER PHARMACY IV NR ×8 (20:00)
[2020-04-01] VITALS (91 sets, daily range): BP systolic 72–109; BP diastolic 40–66
[2020-04-01] MEDS: PROPOFOL 100 ML IV SCH ×6 (00:30→16:35)
[2020-04-01] MEDS: fentaNYL Drip 2500mCg/250mlNS 250 ML IV SCH ×2 (05:00→15:12)
[2020-04-01] MEDS: InsuLIN REG 1unit/0.01ml Soln (100units/ml) SC SCH ×4 (06:00→18:22)
[2020-04-01] MEDS: ACCU-CHEK COMFORT CURVE STRIP VI SCH ×4 (06:00→18:00)
[2020-04-01] MEDS: MIDAZOLAM DRIP 50 mg/50mL 50 ML IV SCH ×3 (06:00→12:21)
[2020-04-01] MEDS: SODIUM CHLOR 0.9% PF (SALINE LOCK) 10ML VIAL/SYR IV SCH ×3 (06:00→22:26)
[2020-04-01 07:37] LABS: Hematocrit 25.3 % (41.0-53.0); Hemoglobin 8.4 g/dL (13.5-17.5)
[2020-04-01 07:50] LABS: Albumin 2.1 g/dL (3.4-5.0); Calcium 8.4 mg/dL (8.5-10.1); Magnesium 2.2 mg/dL (1.6-2.6); Potassium 4.8 mmol/L (3.5-5.1)
[2020-04-01 07:53] LABS: BUN/Creatinine Ratio 15.1; Bilirubin, Total 1.4 mg/dL (0.2-1.0); Phosphorus 5.8 mg/dL (2.5-4.90); Total Protein 6.2 g/dL (6.4-8.2)
[2020-04-01] MEDS: ALBUTEROL SULF 2.5 MG/0.5ML(0.5%) NEB SOLN NEB PRN ×2 (08:50→21:47)
[2020-04-01] MEDS: LINEZOLID 600MG/300ML 300 ML IV SCH ×2 (10:08→22:26)
[2020-04-01] MEDS: FAMOTIDINE (10MG/ML) 2ML VL IV SCH ×2 (10:11→22:26)
[2020-04-01] MEDS: DOCUSATE ORAL LIQUID 100 MG/10 ML UD GT SCH ×2 (10:11→22:25)
[2020-04-01] MEDS: CEFEPIME 2 GM in SODIUM CHL 0.9% 50 ML IV SCH (16:42)
[2020-04-01] MEDS: NOREPINEPHRINE 8 MG/250ML KIT 250 ML IV SCH (17:12)
[2020-04-01] MEDS ORDERED: ALBUMIN 25% 300 ML IV ONE (17:43)
[2020-04-01] MEDS: ALBUMIN 25% 50 ML IV SCH ×2 (18:00→19:00)
[2020-04-01] MEDS ORDERED: TPN PER PHARMACY IV NR ×7 (20:00)
[2020-04-01] MEDS: BUDESONIDE (INHALATION) 0.5 MG/2 ML NEB NEB SCH (21:47)
[2020-04-02] VITALS (64 sets, daily range): BP systolic 60–126; BP diastolic 32–86
[2020-04-02 05:14] LABS: Calcium 8.1 mg/dL (8.5-10.1); Magnesium 2.2 mg/dL (1.6-2.6); Potassium 3.5 mmol/L (3.5-5.1)
[2020-04-02 05:17] LABS: BUN/Creatinine Ratio 13.8; Bilirubin, Total 1.8 mg/dL (0.2-1.0); Phosphorus 4.4 mg/dL (2.5-4.90); Total Protein 6.6 g/dL (6.4-8.2)
[2020-04-02] MEDS: SODIUM CHLOR 0.9% PF (SALINE LOCK) 10ML VIAL/SYR IV SCH ×3 (06:00→22:00)
[2020-04-02] MEDS: InsuLIN REG 1unit/0.01ml Soln (100units/ml) SC SCH ×4 (06:00→18:00)
[2020-04-02] MEDS: ACCU-CHEK COMFORT CURVE STRIP VI SCH ×4 (06:00→18:34)
[2020-04-02] MEDS: ALBUTEROL SULF 2.5 MG/0.5ML(0.5%) NEB SOLN NEB PRN ×2 (06:19→19:23)
[2020-04-02] MEDS: BUDESONIDE (INHALATION) 0.5 MG/2 ML NEB NEB SCH ×2 (06:19→18:44)
[2020-04-02] MEDS ORDERED: MIDODRINE HCL 10 MG TAB PO ONE (08:30)
[2020-04-02] MEDS: NOREPINEPHRINE 8 MG/250ML KIT 250 ML IV SCH (08:45)
[2020-04-02] MEDS: PROPOFOL 100 ML IV SCH (08:46)
[2020-04-02] MEDS: fentaNYL Drip 2500mCg/250mlNS 250 ML IV SCH (08:46)
[2020-04-02] MEDS: LINEZOLID 600MG/300ML 300 ML IV SCH ×2 (10:05→22:00)
[2020-04-02] MEDS: DOCUSATE ORAL LIQUID 100 MG/10 ML UD GT SCH ×2 (10:05→22:00)
[2020-04-02] MEDS: FAMOTIDINE (10MG/ML) 2ML VL IV SCH ×2 (10:05→22:00)
[2020-04-02] MEDS: DexAMETHasone SOD PHOS 10MG/1ML VIAL INJ IV SCH (10:06)
[2020-04-02] MEDS: NOREPINEPHRINE BITARTRATE 16 MG in SODIUM CHL 0.9% 234 ML IV SCH (11:02)
[2020-04-02] MEDS: MIDODRINE HCL 10 MG TAB PO SCH ×2 (13:14→18:05)
[2020-04-02] MEDS: CEFEPIME 2 GM in SODIUM CHL 0.9% 50 ML IV SCH (17:00)
[2020-04-02] MEDS ORDERED: SODIUM CHLORIDE IV NR ×8 (20:00)
[2020-04-02] MEDS ORDERED: POTASSIUM CHLORIDE IV NR ×8 (20:00)
[2020-04-02] MEDS ORDERED: [UNRECOGNIZED DRUG - OTHER] IV NR ×8 (20:00)
[2020-04-02] MEDS ORDERED: MAGNESIUM SULF IV NR ×8 (20:00)
[2020-04-03] VITALS (54 sets, daily range): BP systolic 93–122; BP diastolic 65–82
[2020-04-03] MEDS: MIDODRINE HCL 10 MG TAB PO SCH ×3 (06:00→18:00)
[2020-04-03] MEDS: SODIUM CHLOR 0.9% PF (SALINE LOCK) 10ML VIAL/SYR IV SCH ×3 (06:00→22:27)
[2020-04-03] MEDS: ACCU-CHEK COMFORT CURVE STRIP VI SCH ×4 (06:00→17:36)
[2020-04-03] MEDS: InsuLIN REG 1unit/0.01ml Soln (100units/ml) SC SCH ×4 (06:00→17:58)
[2020-04-03 06:43] LABS: Potassium 3.8 mmol/L (3.5-5.1)
[2020-04-03 06:56] LABS: Albumin 2.7 g/dL (3.4-5.0); BUN/Creatinine Ratio 14.1; Bilirubin, Total 1.2 mg/dL (0.2-1.0); Calcium 8.4 mg/dL (8.5-10.1); Magnesium 2.3 mg/dL (1.6-2.6); Phosphorus 4.9 mg/dL (2.5-4.90); Total Protein 6.6 g/dL (6.4-8.2)
[2020-04-03] MEDS: ALBUTEROL SULF 2.5 MG/0.5ML(0.5%) NEB SOLN NEB PRN ×2 (08:04→18:48)
[2020-04-03] MEDS: BUDESONIDE (INHALATION) 0.5 MG/2 ML NEB NEB SCH ×2 (08:05→18:48)
[2020-04-03] MEDS: NOREPINEPHRINE BITARTRATE 16 MG in SODIUM CHL 0.9% 234 ML IV SCH ×2 (09:15→18:58)
[2020-04-03] MEDS: FAMOTIDINE (10MG/ML) 2ML VL IV SCH ×2 (10:04→22:27)
[2020-04-03] MEDS: MIDAZOLAM DRIP 50 mg/50mL 50 ML IV SCH ×3 (10:04→18:35)
[2020-04-03] MEDS: DexAMETHasone SOD PHOS 10MG/1ML VIAL INJ IV SCH (10:05)
[2020-04-03] MEDS: DOCUSATE ORAL LIQUID 100 MG/10 ML UD GT SCH ×2 (10:08→22:27)
[2020-04-03] MEDS: LINEZOLID 600MG/300ML 300 ML IV SCH ×2 (10:08→22:27)
[2020-04-03] MEDS: PROPOFOL 100 ML IV SCH ×3 (11:15→18:35)
[2020-04-03] MEDS ORDERED: Jevity 1.2 Cal/Fiber 1 Liter GT SCH (11:30)
[2020-04-03] MEDS: cefTRIAXone 1GM/50ML D5W 50 ML IV SCH (12:12)
[2020-04-03] MEDS: fentaNYL Drip 2500mCg/250mlNS 250 ML IV SCH (12:50)
[2020-04-03] MEDS ORDERED: TPN PER PHARMACY IV NR ×7 (20:00)
[2020-04-04] VITALS (70 sets, daily range): BP systolic 88–117; BP diastolic 53–81
[2020-04-04] MEDS: InsuLIN REG 1unit/0.01ml Soln (100units/ml) SC SCH ×4 (06:00→18:33)
[2020-04-04 07:24] LABS: Basophils # (auto) 0 10 ^3/uL (0-0.2); Basophils % (auto) 0.2 % (0.0-2.0); Hemoglobin 8.4 g/dL (13.5-17.5); Lymphocytes # (auto) 1.2 10 ^3/uL (0.4-5.4); Red Cell Distribution Width 17.3 % (11.8-14.3)
[2020-04-04 07:51] LABS: Eosinophils # (auto) 0.4 10 ^3/uL (0-0.8); Eosinophils % (auto) 2.8 % (0.0-7.0); Lymphocytes % (auto) 7.4 % (10.0-50.0); Mean Corpuscular Hemoglobin 28.7 pg (28.0-32.0); Mean Corpuscular Hgb Conc. 32.4 g/dL (32.0-36.0); Mean Corpuscular Volume 88.7 fL (80.0-100.0); Monocytes # (auto) 1.7 10 ^3/uL (0-1.3); Monocytes % (auto) 10.4 % (0.0-12.0); Neutrophils # (auto) 12.7 10 ^3/uL (1.6-8.6); Neutrophils % (auto) 79.2 % (37.0-80.0); Nucleated Red Blood Cells % 0.4 %; Platelet Count (auto) 217 10^3/uL (140-450); Red Blood Cells 2.93 10^6/uL (4.5-5.90)
[2020-04-04 08:01] LABS: Albumin 2.7 g/dL (3.4-5.0); BUN/Creatinine Ratio 15.2; Bilirubin, Total 1.1 mg/dL (0.2-1.0); Calcium 8.7 mg/dL (8.5-10.1); Magnesium 2.4 mg/dL (1.6-2.6); Phosphorus 5.4 mg/dL (2.5-4.90); Pre Albumin 20.7 mg/dL (20.0-40.0); Total Protein 6.6 g/dL (6.4-8.2)
[2020-04-04] MEDS: cefTRIAXone 1GM/50ML D5W 50 ML IV SCH (08:49)
[2020-04-04] MEDS: MIDAZOLAM DRIP 50 mg/50mL 50 ML IV SCH ×3 (09:06→16:41)
[2020-04-04] MEDS ORDERED: SODIUM CHL 0.9% 1000 ML BAG XX ONE (09:30)
[2020-04-04] MEDS: PHENYLEPHRINE IV 250 ML IV SCH ×2 (09:30→17:50)
[2020-04-04] MEDS: BUDESONIDE (INHALATION) 0.5 MG/2 ML NEB NEB SCH ×2 (10:00→19:16)
[2020-04-04] MEDS: LINEZOLID 600MG/300ML 300 ML IV SCH ×2 (10:00→21:39)
[2020-04-04] MEDS: PROPOFOL 100 ML IV SCH ×4 (11:00→22:00)
[2020-04-04] MEDS: DOCUSATE ORAL LIQUID 100 MG/10 ML UD GT SCH ×2 (11:00→21:38)
[2020-04-04] MEDS: DexAMETHasone SOD PHOS 10MG/1ML VIAL INJ IV SCH (11:00)
[2020-04-04] MEDS: FAMOTIDINE (10MG/ML) 2ML VL IV SCH ×2 (11:00→21:40)
[2020-04-04] MEDS: ENOXAPARIN SOD 150 MG/1 ML SYRINGE SC SCH (11:00)
[2020-04-04] MEDS: MIDODRINE HCL 10 MG TAB PO SCH ×2 (11:53→18:00)
[2020-04-04] MEDS ORDERED: PIPERACILLIN-TAZOB 2.25GM 50 ML IV ONE (12:00)
[2020-04-04] MEDS: ACCU-CHEK COMFORT CURVE STRIP VI SCH ×2 (12:10→18:33)
[2020-04-04] MEDS: fentaNYL Drip 2500mCg/250mlNS 250 ML IV SCH (12:45)
[2020-04-04] MEDS: SODIUM CHLOR 0.9% PF (SALINE LOCK) 10ML VIAL/SYR IV SCH ×2 (14:26→21:39)
[2020-04-04] MEDS: ALBUMIN 25% 100 ML IV PRN ×3 (15:30→18:30)
[2020-04-04] MEDS: ALBUTEROL SULF 2.5 MG/0.5ML(0.5%) NEB SOLN NEB PRN ×2 (16:12→19:16)
[2020-04-04] MEDS ORDERED: ALBUMIN 25% 300 ML IV ONE (16:30)
[2020-04-04] MEDS ORDERED: TPN PER PHARMACY IV NR ×7 (20:00)
[2020-04-04] MEDS: PIPERACILLIN-TAZOB 3.375GM 100 ML IV SCH (20:00)
[2020-04-04] MEDS ORDERED: EPOETIN ALFA 10,000 UNIT/1 ML VIAL SC ONE (21:00)
[2020-04-04] MEDS: NOREPINEPHRINE BITARTRATE 16 MG in SODIUM CHL 0.9% 234 ML IV SCH (21:30)
[2020-04-05] VITALS (90 sets, daily range): BP systolic 76–176; BP diastolic 43–99
[2020-04-05] MEDS: fentaNYL Drip 2500mCg/250mlNS 250 ML IV SCH ×2 (00:21→13:15)
[2020-04-05] MEDS: MIDAZOLAM DRIP 50 mg/50mL 50 ML IV SCH ×4 (01:18→18:27)
[2020-04-05] MEDS: PROPOFOL 100 ML IV SCH ×5 (01:41→20:04)
[2020-04-05] MEDS: PHENYLEPHRINE IV 250 ML IV SCH ×3 (02:10→18:50)
[2020-04-05] MEDS: NOREPINEPHRINE BITARTRATE 16 MG in SODIUM CHL 0.9% 234 ML IV SCH (03:00)
[2020-04-05] MEDS: PIPERACILLIN-TAZOB 3.375GM 100 ML IV SCH ×3 (04:00→20:00)
[2020-04-05 05:22] LABS: Basophils # (auto) 0.1 10 ^3/uL (0-0.2); Eosinophils # (auto) 0.1 10 ^3/uL (0-0.8); Hemoglobin 8.1 g/dL (13.5-17.5); Lymphocytes # (auto) 0.8 10 ^3/uL (0.4-5.4); Monocytes # (auto) 1.3 10 ^3/uL (0-1.3); Nucleated Red Blood Cells % 0.8 %; Red Blood Cells 2.72 10^6/uL (4.5-5.90)
[2020-04-05 05:27] LABS: INR 1.11 (0.9-1.15)
[2020-04-05] MEDS: MIDODRINE HCL 10 MG TAB PO SCH ×3 (05:29→17:09)
[2020-04-05] MEDS: SODIUM CHLOR 0.9% PF (SALINE LOCK) 10ML VIAL/SYR IV SCH ×3 (05:29→22:00)
[2020-04-05 05:33] LABS: Basophils % (auto) 0.5 % (0.0-2.0); Hematocrit 24.3 % (41.0-53.0); Lymphocytes % (auto) 6.3 % (10.0-50.0); Mean Corpuscular Hemoglobin 29.7 pg (28.0-32.0); Mean Corpuscular Hgb Conc. 33.2 g/dL (32.0-36.0); Mean Corpuscular Volume 89.2 fL (80.0-100.0); Monocytes % (auto) 10.2 % (0.0-12.0); Neutrophils # (auto) 10.5 10 ^3/uL (1.6-8.6); Platelet Count (auto) 187 10^3/uL (140-450); Red Cell Distribution Width 17.4 % (11.8-14.3); White Blood Cell 12.8 10^3/uL (4.4-10.8)
[2020-04-05 05:36] LABS: Albumin 3.5 g/dL (3.4-5.0); Calcium 8.5 mg/dL (8.5-10.1); Magnesium 2.4 mg/dL (1.6-2.6); Potassium 3.8 mmol/L (3.5-5.1)
[2020-04-05 05:38] LABS: BUN/Creatinine Ratio 14.3; Bilirubin, Total 1.1 mg/dL (0.2-1.0); Phosphorus 4.6 mg/dL (2.5-4.90); Total Protein 7.2 g/dL (6.4-8.2)
[2020-04-05] MEDS: ACCU-CHEK COMFORT CURVE STRIP VI SCH ×4 (06:00→17:11)
[2020-04-05] MEDS: InsuLIN REG 1unit/0.01ml Soln (100units/ml) SC SCH ×4 (06:00→17:11)
[2020-04-05] MEDS: BUDESONIDE (INHALATION) 0.5 MG/2 ML NEB NEB SCH ×2 (08:18→22:51)
[2020-04-05] MEDS: ALBUTEROL SULF 2.5 MG/0.5ML(0.5%) NEB SOLN NEB PRN ×2 (08:18→23:06)
[2020-04-05] MEDS: DOCUSATE ORAL LIQUID 100 MG/10 ML UD GT SCH ×2 (09:49→20:42)
[2020-04-05] MEDS: FAMOTIDINE (10MG/ML) 2ML VL IV SCH ×2 (09:49→20:42)
[2020-04-05] MEDS: DexAMETHasone SOD PHOS 10MG/1ML VIAL INJ IV SCH (09:49)
[2020-04-05] MEDS: LINEZOLID 600MG/300ML 300 ML IV SCH ×2 (09:50→22:00)
[2020-04-05] MEDS: ENOXAPARIN SOD 150 MG/1 ML SYRINGE SC SCH (09:50)
[2020-04-05] MEDS ORDERED: ATRACURIUM BESYLATE 1,000 MG in D5W 5% 150 ML IV SCH (11:30)
[2020-04-05] MEDS ORDERED: ATRACURIUM BESYLATE (10 MG/ ML) 10 ML VIAL IV ONE (15:45)
[2020-04-05] MEDS ORDERED: TPN PER PHARMACY IV NR ×10 (20:00)
[2020-04-06] VITALS (102 sets, daily range): BP systolic 82–117; BP diastolic 45–79
[2020-04-06] MEDS: fentaNYL Drip 2500mCg/250mlNS 250 ML IV SCH ×2 (03:08→14:16)
[2020-04-06] MEDS: PHENYLEPHRINE IV 250 ML IV SCH ×3 (03:10→19:50)
[2020-04-06] MEDS: PIPERACILLIN-TAZOB 3.375GM 100 ML IV SCH ×3 (03:41→19:26)
[2020-04-06] MEDS: PROPOFOL 100 ML IV SCH ×4 (03:56→14:31)
[2020-04-06 06:02] LABS: Basophils # (auto) 0 10 ^3/uL (0-0.2); Eosinophils # (auto) 0.2 10 ^3/uL (0-0.8); Neutrophils # (auto) 14.9 10 ^3/uL (1.6-8.6)
[2020-04-06] MEDS: ACCU-CHEK COMFORT CURVE STRIP VI SCH ×4 (06:03→17:07)
[2020-04-06] MEDS: SODIUM CHLOR 0.9% PF (SALINE LOCK) 10ML VIAL/SYR IV SCH ×3 (06:03→21:30)
[2020-04-06] MEDS: MIDODRINE HCL 10 MG TAB PO SCH ×3 (06:03→17:06)
[2020-04-06 06:09] LABS: Basophils % (auto) 0.2 % (0.0-2.0); Eosinophils % (auto) 1.1 % (0.0-7.0); Hematocrit 26.3 % (41.0-53.0); Hemoglobin 8.3 g/dL (13.5-17.5); Lymphocytes # (auto) 1.1 10 ^3/uL (0.4-5.4); Lymphocytes % (auto) 6.1 % (10.0-50.0); Mean Corpuscular Hemoglobin 28.6 pg (28.0-32.0); Mean Corpuscular Hgb Conc. 31.7 g/dL (32.0-36.0); Mean Corpuscular Volume 90.2 fL (80.0-100.0); Monocytes % (auto) 11.1 % (0.0-12.0); Neutrophils % (auto) 81.5 % (37.0-80.0); Nucleated Red Blood Cells % 0.9 %; Platelet Count (auto) 207 10^3/uL (140-450); Red Blood Cells 2.92 10^6/uL (4.5-5.90); Red Cell Distribution Width 17.7 % (11.8-14.3); White Blood Cell 18.3 10^3/uL (4.4-10.8)
[2020-04-06] MEDS: InsuLIN REG 1unit/0.01ml Soln (100units/ml) SC SCH ×4 (06:15→17:06)
[2020-04-06 06:24] LABS: Potassium 4.6 mmol/L (3.5-5.1)
[2020-04-06 06:32] LABS: Albumin 3.2 g/dL (3.4-5.0); BUN/Creatinine Ratio 15.9; Bilirubin, Total 1.3 mg/dL (0.2-1.0); Calcium 8.6 mg/dL (8.5-10.1); Magnesium 2.5 mg/dL (1.6-2.6); Phosphorus 6.2 mg/dL (2.5-4.90); Total Protein 6.9 g/dL (6.4-8.2)
[2020-04-06] MEDS: DOCUSATE ORAL LIQUID 100 MG/10 ML UD GT SCH ×2 (09:10→22:00)
[2020-04-06] MEDS: FAMOTIDINE (10MG/ML) 2ML VL IV SCH ×2 (09:10→21:30)
[2020-04-06] MEDS: DexAMETHasone SOD PHOS 10MG/1ML VIAL INJ IV SCH (09:10)
[2020-04-06] MEDS: ENOXAPARIN SOD 150 MG/1 ML SYRINGE SC SCH (09:12)
[2020-04-06] MEDS: LINEZOLID 600MG/300ML 300 ML IV SCH ×2 (09:42→21:30)
[2020-04-06] MEDS ORDERED: SODIUM BICARBONATE 8.4 % INJ 50ML VIAL IV ONE (10:30)
[2020-04-06] MEDS: MIDAZOLAM DRIP 50 mg/50mL 50 ML IV SCH ×2 (11:09→14:31)
[2020-04-06] MEDS ORDERED: ALBUMIN 25% 100 ML IV ONE (13:45)
[2020-04-06] MEDS: NOREPINEPHRINE BITARTRATE 16 MG in SODIUM CHL 0.9% 234 ML IV SCH (18:47)
[2020-04-06] MEDS: BUDESONIDE (INHALATION) 0.5 MG/2 ML NEB NEB SCH (18:53)
[2020-04-06] MEDS ORDERED: TPN PER PHARMACY IV NR ×8 (20:00)
[2020-04-07] VITALS (96 sets, daily range): BP systolic 88–116; BP diastolic 54–76
[2020-04-07] MEDS: ACCU-CHEK COMFORT CURVE STRIP VI SCH ×4 (00:26→17:09)
[2020-04-07] MEDS: fentaNYL Drip 2500mCg/250mlNS 250 ML IV SCH ×2 (01:22→14:22)
[2020-04-07] MEDS: PIPERACILLIN-TAZOB 3.375GM 100 ML IV SCH (03:48)
[2020-04-07] MEDS: NOREPINEPHRINE BITARTRATE 16 MG in SODIUM CHL 0.9% 234 ML IV SCH ×2 (03:48→21:38)
[2020-04-07 05:13] LABS: Basophils # (auto) 0.1 10 ^3/uL (0-0.2); Eosinophils # (auto) 0.4 10 ^3/uL (0-0.8); Eosinophils % (auto) 2.7 % (0.0-7.0); Lymphocytes # (auto) 0.7 10 ^3/uL (0.4-5.4); Monocytes # (auto) 1.5 10 ^3/uL (0-1.3); White Blood Cell 14.8 10^3/uL (4.4-10.8)
[2020-04-07 05:16] LABS: Basophils % (auto) 0.5 % (0.0-2.0); Hematocrit 23.3 % (41.0-53.0); Hemoglobin 7.8 g/dL (13.5-17.5); Lymphocytes % (auto) 4.6 % (10.0-50.0); Mean Corpuscular Hemoglobin 29.8 pg (28.0-32.0); Mean Corpuscular Hgb Conc. 33.4 g/dL (32.0-36.0); Mean Corpuscular Volume 89.2 fL (80.0-100.0); Monocytes % (auto) 9.9 % (0.0-12.0); Neutrophils # (auto) 12.2 10 ^3/uL (1.6-8.6); Neutrophils % (auto) 82.3 % (37.0-80.0); Nucleated Red Blood Cells % 0.4 %; Platelet Count (auto) 168 10^3/uL (140-450); Red Blood Cells 2.61 10^6/uL (4.5-5.90); Red Cell Distribution Width 17.4 % (11.8-14.3)
[2020-04-07 05:18] LABS: Potassium 3.5 mmol/L (3.5-5.1)
[2020-04-07 05:26] LABS: Albumin 3.3 g/dL (3.4-5.0); BUN/Creatinine Ratio 15.7; Bilirubin, Total 1.3 mg/dL (0.2-1.0); Calcium 8.1 mg/dL (8.5-10.1); Magnesium 2.2 mg/dL (1.6-2.6); Phosphorus 3.8 mg/dL (2.5-4.90); Total Protein 6.8 g/dL (6.4-8.2)
[2020-04-07] MEDS: PHENYLEPHRINE IV 250 ML IV SCH (05:44)
[2020-04-07] MEDS: SODIUM CHLOR 0.9% PF (SALINE LOCK) 10ML VIAL/SYR IV SCH ×3 (05:45→21:16)
[2020-04-07] MEDS: InsuLIN REG 1unit/0.01ml Soln (100units/ml) SC SCH ×4 (06:00→17:09)
[2020-04-07] MEDS: MIDODRINE HCL 10 MG TAB PO SCH ×2 (06:02→12:34)
[2020-04-07] MEDS: DOCUSATE ORAL LIQUID 100 MG/10 ML UD GT SCH ×2 (09:16→21:16)
[2020-04-07] MEDS: FAMOTIDINE (10MG/ML) 2ML VL IV SCH ×2 (09:17→21:16)
[2020-04-07] MEDS: LINEZOLID 600MG/300ML 300 ML IV SCH (09:17)
[2020-04-07] MEDS: DexAMETHasone SOD PHOS 10MG/1ML VIAL INJ IV SCH (09:17)
[2020-04-07] MEDS: ENOXAPARIN SOD 150 MG/1 ML SYRINGE SC SCH (09:18)
[2020-04-07] MEDS: PHENYLEPHRINE INJ 40 MG in SODIUM CHL 0.9% 246 ML IV SCH (09:53)
[2020-04-07] MEDS: BUDESONIDE (INHALATION) 0.5 MG/2 ML NEB NEB SCH ×2 (10:10→18:28)
[2020-04-07] MEDS ORDERED: POTASSIUM CHL 20MEQ/100ML 100 ML IV ONE (12:00)
[2020-04-07] MEDS: MIDAZOLAM DRIP 50 mg/50mL 50 ML IV SCH ×3 (14:23→21:39)
[2020-04-07] MEDS: ALBUTEROL SULF 2.5 MG/0.5ML(0.5%) NEB SOLN NEB PRN ×2 (15:00→20:19)
[2020-04-07] MEDS ORDERED: TPN PER PHARMACY IV NR ×10 (20:00)
[2020-04-07] MEDS: PROPOFOL 100 ML IV SCH (20:00)
[2020-04-08] VITALS (91 sets, daily range): BP systolic 80–124; BP diastolic 44–81
[2020-04-08] MEDS: PHENYLEPHRINE INJ 40 MG in SODIUM CHL 0.9% 246 ML IV SCH ×2 (00:10→16:50)
[2020-04-08 04:16] LABS: Basophils # (auto) 0.1 10 ^3/uL (0-0.2); Basophils % (auto) 0.6 % (0.0-2.0); Eosinophils # (auto) 0.6 10 ^3/uL (0-0.8); Eosinophils % (auto) 4.3 % (0.0-7.0); Hematocrit 21.7 % (41.0-53.0); Hemoglobin 7.2 g/dL (13.5-17.5); Lymphocytes # (auto) 0.9 10 ^3/uL (0.4-5.4); Lymphocytes % (auto) 6.7 % (10.0-50.0); Mean Corpuscular Hemoglobin 29.2 pg (28.0-32.0); Mean Corpuscular Volume 88.4 fL (80.0-100.0); Monocytes # (auto) 1.2 10 ^3/uL (0-1.3); Monocytes % (auto) 8.3 % (0.0-12.0); Neutrophils # (auto) 11.3 10 ^3/uL (1.6-8.6); Neutrophils % (auto) 80.1 % (37.0-80.0); Nucleated Red Blood Cells % 0.4 %; Platelet Count (auto) 165 10^3/uL (140-450); Red Blood Cells 2.45 10^6/uL (4.5-5.90); Red Cell Distribution Width 17.5 % (11.8-14.3); White Blood Cell 14.1 10^3/uL (4.4-10.8)
[2020-04-08 04:35] LABS: Albumin 3.1 g/dL (3.4-5.0); Calcium 8.4 mg/dL (8.5-10.1); Potassium 3.8 mmol/L (3.5-5.1)
[2020-04-08 04:40] LABS: Bilirubin, Total 1.3 mg/dL (0.2-1.0); Total Protein 6.5 g/dL (6.4-8.2)
[2020-04-08] MEDS: InsuLIN REG 1unit/0.01ml Soln (100units/ml) SC SCH ×5 (06:00→23:39)
[2020-04-08] MEDS: SODIUM CHLOR 0.9% PF (SALINE LOCK) 10ML VIAL/SYR IV SCH ×3 (06:26→22:00)
[2020-04-08] MEDS: ACCU-CHEK COMFORT CURVE STRIP VI SCH ×5 (06:26→23:39)
[2020-04-08] MEDS: DOCUSATE ORAL LIQUID 100 MG/10 ML UD GT SCH ×2 (09:40→22:00)
[2020-04-08] MEDS: FAMOTIDINE (10MG/ML) 2ML VL IV SCH ×2 (09:41→22:00)
[2020-04-08] MEDS ORDERED: BUMETANIDE 2.5mg/10ml (0.25 mg/ml) INJ IV ONE (10:15)
[2020-04-08] MEDS ORDERED: SODIUM BICARBONATE 8.4 % INJ 50ML VIAL IV ONE (10:30)
[2020-04-08] MEDS: MIDAZOLAM DRIP 50 mg/50mL 50 ML IV SCH ×2 (13:26→18:13)
[2020-04-08] MEDS: fentaNYL Drip 2500mCg/250mlNS 250 ML IV SCH (15:11)
[2020-04-08] MEDS: NOREPINEPHRINE BITARTRATE 16 MG in SODIUM CHL 0.9% 234 ML IV SCH (18:14)
[2020-04-08] MEDS: PROPOFOL 100 ML IV SCH (18:33)
[2020-04-08] MEDS ORDERED: DEXTROSE 10% 1,000 ML IV ONE (19:30)
[2020-04-08] MEDS: BUDESONIDE (INHALATION) 0.5 MG/2 ML NEB NEB SCH (20:19)
[2020-04-08] MEDS: ALBUTEROL SULF 2.5 MG/0.5ML(0.5%) NEB SOLN NEB PRN (20:19)
[2020-04-09] VITALS (107 sets, daily range): BP systolic 89–119; BP diastolic 58–84
[2020-04-09 05:09] LABS: Basophils # (auto) 0.1 10 ^3/uL (0-0.2); Mean Corpuscular Hemoglobin 29.5 pg (28.0-32.0); Mean Corpuscular Hgb Conc. 33.3 g/dL (32.0-36.0); Monocytes # (auto) 1.3 10 ^3/uL (0-1.3)
[2020-04-09 05:11] LABS: Basophils % (auto) 0.4 % (0.0-2.0); Eosinophils % (auto) 4.4 % (0.0-7.0); Hematocrit 20.9 % (41.0-53.0); Lymphocytes # (auto) 1.3 10 ^3/uL (0.4-5.4); Lymphocytes % (auto) 5.9 % (10.0-50.0); Mean Corpuscular Volume 88.6 fL (80.0-100.0); Monocytes % (auto) 5.8 % (0.0-12.0); Neutrophils # (auto) 18.9 10 ^3/uL (1.6-8.6); Neutrophils % (auto) 83.5 % (37.0-80.0); Nucleated Red Blood Cells % 0.7 %; Platelet Count (auto) 172 10^3/uL (140-450); Red Blood Cells 2.36 10^6/uL (4.5-5.90); Red Cell Distribution Width 17.5 % (11.8-14.3); White Blood Cell 22.6 10^3/uL (4.4-10.8)
[2020-04-09 05:20] LABS: Calcium 8.8 mg/dL (8.5-10.1); Potassium 3.9 mmol/L (3.5-5.1)
[2020-04-09 05:22] LABS: Bilirubin, Total 1.4 mg/dL (0.2-1.0); Total Protein 6.7 g/dL (6.4-8.2)
[2020-04-09 05:48] LABS: BUN/Creatinine Ratio 17.1
[2020-04-09] MEDS: InsuLIN REG 1unit/0.01ml Soln (100units/ml) SC SCH ×4 (06:00→23:17)
[2020-04-09] MEDS: SODIUM CHLOR 0.9% PF (SALINE LOCK) 10ML VIAL/SYR IV SCH ×3 (06:27→21:16)
[2020-04-09] MEDS: ACCU-CHEK COMFORT CURVE STRIP VI SCH ×4 (06:28→23:16)
[2020-04-09] MEDS: ALBUTEROL SULF 2.5 MG/0.5ML(0.5%) NEB SOLN NEB PRN ×2 (06:50→18:47)
[2020-04-09] MEDS: BUDESONIDE (INHALATION) 0.5 MG/2 ML NEB NEB SCH ×2 (06:50→18:47)
[2020-04-09] MEDS: BUMETANIDE 2.5mg/10ml (0.25 mg/ml) INJ IV SCH (09:33)
[2020-04-09] MEDS: DOCUSATE ORAL LIQUID 100 MG/10 ML UD GT SCH ×2 (09:33→21:16)
[2020-04-09] MEDS: FAMOTIDINE (10MG/ML) 2ML VL IV SCH ×2 (09:33→21:15)
[2020-04-09] MEDS: MIDAZOLAM DRIP 50 mg/50mL 50 ML IV SCH ×2 (11:34→15:14)
[2020-04-09] MEDS: PROPOFOL 100 ML IV SCH ×2 (15:15→23:11)
[2020-04-09] MEDS: fentaNYL Drip 2500mCg/250mlNS 250 ML IV SCH (15:18)
[2020-04-09 15:19] LABS: Hematocrit 22.6 % (41.0-53.0); Hemoglobin 7.4 g/dL (13.5-17.5)
[2020-04-09] MEDS: NOREPINEPHRINE BITARTRATE 16 MG in SODIUM CHL 0.9% 234 ML IV SCH (15:20)
[2020-04-10] VITALS (101 sets, daily range): BP systolic 94–114; BP diastolic 64–83
[2020-04-10] MEDS: MIDAZOLAM DRIP 50 mg/50mL 50 ML IV SCH ×4 (00:42→16:36)
[2020-04-10] MEDS: fentaNYL Drip 2500mCg/250mlNS 250 ML IV SCH ×2 (04:40→16:35)
[2020-04-10] MEDS: ACCU-CHEK COMFORT CURVE STRIP VI SCH ×4 (05:47→23:05)
[2020-04-10] MEDS: InsuLIN REG 1unit/0.01ml Soln (100units/ml) SC SCH ×4 (05:47→23:04)
[2020-04-10] MEDS: SODIUM CHLOR 0.9% PF (SALINE LOCK) 10ML VIAL/SYR IV SCH ×3 (05:48→21:24)
[2020-04-10] MEDS: PROPOFOL 100 ML IV SCH ×3 (05:59→16:36)
[2020-04-10] MEDS: NOREPINEPHRINE BITARTRATE 16 MG in SODIUM CHL 0.9% 234 ML IV SCH ×2 (05:59→16:56)
[2020-04-10 06:01] LABS: Basophils # (auto) 0.1 10 ^3/uL (0-0.2); Hemoglobin 7.5 g/dL (13.5-17.5); Lymphocytes # (auto) 0.7 10 ^3/uL (0.4-5.4); Neutrophils # (auto) 9.7 10 ^3/uL (1.6-8.6); Platelet Count (auto) 155 10^3/uL (140-450)
[2020-04-10 06:03] LABS: Basophils % (auto) 0.7 % (0.0-2.0); Eosinophils # (auto) 0.9 10 ^3/uL (0-0.8); Eosinophils % (auto) 7.1 % (0.0-7.0); Hematocrit 22.4 % (41.0-53.0); Lymphocytes % (auto) 5.5 % (10.0-50.0); Mean Corpuscular Hemoglobin 29.7 pg (28.0-32.0); Mean Corpuscular Hgb Conc. 33.5 g/dL (32.0-36.0); Mean Corpuscular Volume 88.7 fL (80.0-100.0); Monocytes # (auto) 0.7 10 ^3/uL (0-1.3); Neutrophils % (auto) 80.7 % (37.0-80.0); Nucleated Red Blood Cells % 0.8 %; Red Blood Cells 2.53 10^6/uL (4.5-5.90); Red Cell Distribution Width 17.6 % (11.8-14.3)
[2020-04-10 06:12] LABS: Potassium 3.2 mmol/L (3.5-5.1)
[2020-04-10] MEDS: BUDESONIDE (INHALATION) 0.5 MG/2 ML NEB NEB SCH ×2 (06:40→18:44)
[2020-04-10] MEDS: ALBUTEROL SULF 2.5 MG/0.5ML(0.5%) NEB SOLN NEB PRN ×2 (06:40→18:44)
[2020-04-10 07:00] LABS: Albumin 2.8 g/dL (3.4-5.0); BUN/Creatinine Ratio 15.1; Bilirubin, Total 1.4 mg/dL (0.2-1.0); Calcium 8.5 mg/dL (8.5-10.1); Total Protein 6.6 g/dL (6.4-8.2)
[2020-04-10] MEDS: PHENYLEPHRINE INJ 40 MG in SODIUM CHL 0.9% 246 ML IV SCH ×3 (07:45→13:08)
[2020-04-10] MEDS: BUMETANIDE 2.5mg/10ml (0.25 mg/ml) INJ IV SCH (09:29)
[2020-04-10] MEDS: DOCUSATE ORAL LIQUID 100 MG/10 ML UD GT SCH ×2 (09:30→21:24)
[2020-04-10] MEDS: FAMOTIDINE (10MG/ML) 2ML VL IV SCH ×2 (09:30→21:24)
[2020-04-10] MEDS: NEOMYCIN-POLYMY-DEXAMETH 0.1% OPTH(EYE) OINT 3.5GM EACHEYE SCH ×4 (17:00→23:07)
[2020-04-10] MEDS ORDERED: SODIUM FERR GLUC 62.5MG/5ML 125 MG in SODIUM CHL 0.9% 100 ML IV ONE (17:00)
[2020-04-10] MEDS ORDERED: cefTRIAXone 1GM/50ML D5W 50 ML IV ONE (17:00)
[2020-04-10] MEDS: AMPICILLIN 250 MG/5ML ORAL SUSP 200ML GT SCH ×2 (18:00→23:07)
[2020-04-10] MEDS ORDERED: BUDESONIDE (INHALATION) 0.5 MG/2 ML NEB ONE (19:47)
[2020-04-10] MEDS ORDERED: ALBUTEROL SULF 2.5 MG/0.5ML(0.5%) NEB SOLN ONE (19:47)
[2020-04-10] MEDS ORDERED: DEXTROSE 10% 1,000 ML IV SCH (22:45)
[2020-04-10] MEDS ORDERED: DEXTROSE 10% 1,000 ML IV ONE ×2 (22:55→23:30)
[2020-04-11] VITALS (102 sets, daily range): BP systolic 94–131; BP diastolic 39–84
[2020-04-11] MEDS: MIDAZOLAM DRIP 50 mg/50mL 50 ML IV SCH ×2 (00:25→06:13)
[2020-04-11] MEDS: PROPOFOL 100 ML IV SCH ×3 (00:40→22:16)
[2020-04-11] MEDS ORDERED: NOREPINEPHRINE 8 MG/250ML KIT 250 ML IV ONE (03:52)
[2020-04-11] MEDS: fentaNYL Drip 2500mCg/250mlNS 250 ML IV SCH (04:53)
[2020-04-11 05:56] LABS: Basophils # (auto) 0.1 10 ^3/uL (0-0.2); Monocytes # (auto) 0.8 10 ^3/uL (0-1.3); Neutrophils # (auto) 8.1 10 ^3/uL (1.6-8.6); Platelet Count (auto) 168 10^3/uL (140-450); Red Cell Distribution Width 17.5 % (11.8-14.3); White Blood Cell 10.8 10^3/uL (4.4-10.8)
[2020-04-11] MEDS: AMPICILLIN 250 MG/5ML ORAL SUSP 200ML GT SCH ×4 (06:00→23:21)
[2020-04-11] MEDS: InsuLIN REG 1unit/0.01ml Soln (100units/ml) SC SCH ×4 (06:00→23:21)
[2020-04-11 06:01] LABS: Hematocrit 21.8 % (41.0-53.0); Hemoglobin 7.4 g/dL (13.5-17.5); Lymphocytes # (auto) 0.8 10 ^3/uL (0.4-5.4); Lymphocytes % (auto) 7.3 % (10.0-50.0); Mean Corpuscular Hemoglobin 30.4 pg (28.0-32.0); Mean Corpuscular Hgb Conc. 34.2 g/dL (32.0-36.0); Mean Corpuscular Volume 88.8 fL (80.0-100.0); Monocytes % (auto) 7.6 % (0.0-12.0); Neutrophils % (auto) 75.1 % (37.0-80.0); Nucleated Red Blood Cells % 0.9 %; Red Blood Cells 2.45 10^6/uL (4.5-5.90)
[2020-04-11] MEDS: SODIUM CHLOR 0.9% PF (SALINE LOCK) 10ML VIAL/SYR IV SCH ×3 (06:02→21:05)
[2020-04-11] MEDS: ACCU-CHEK COMFORT CURVE STRIP VI SCH ×4 (06:03→23:22)
[2020-04-11 06:06] LABS: Potassium 3.5 mmol/L (3.5-5.1)
[2020-04-11 06:35] LABS: Albumin 2.8 g/dL (3.4-5.0); BUN/Creatinine Ratio 15.6; Bilirubin, Total 1.3 mg/dL (0.2-1.0); Total Protein 6.1 g/dL (6.4-8.2)
[2020-04-11] MEDS: BUDESONIDE (INHALATION) 0.5 MG/2 ML NEB NEB SCH (07:19)
[2020-04-11] MEDS: ALBUTEROL SULF 2.5 MG/0.5ML(0.5%) NEB SOLN NEB PRN (07:19)
[2020-04-11] MEDS: DOCUSATE ORAL LIQUID 100 MG/10 ML UD GT SCH ×2 (08:23→21:04)
[2020-04-11] MEDS: cefTRIAXone 1GM/50ML D5W 50 ML IV SCH (09:00)
[2020-04-11] MEDS: BUMETANIDE 2.5mg/10ml (0.25 mg/ml) INJ IV SCH (09:48)
[2020-04-11] MEDS: FAMOTIDINE (10MG/ML) 2ML VL IV SCH ×2 (09:49→21:05)
[2020-04-11] MEDS: PHENYLEPHRINE INJ 40 MG in SODIUM CHL 0.9% 246 ML IV SCH (11:14)
[2020-04-11] MEDS ORDERED: Nepro With Carb Steady 1 Liter Bottle GT SCH (11:15)
[2020-04-11] MEDS: SODIUM FERR GLUC 62.5MG/5ML 125 MG in SODIUM CHL 0.9% 100 ML IV SCH (12:00)
[2020-04-11] MEDS: NEOMYCIN-POLYMY-DEXAMETH 0.1% OPTH(EYE) OINT 3.5GM EACHEYE SCH ×2 (12:47→21:04)
[2020-04-11] MEDS ORDERED: EPOETIN ALFA 10,000 UNIT/1 ML VIAL SC ONE (21:00)
[2020-04-12] VITALS (98 sets, daily range): BP systolic 91–132; BP diastolic 54–86
[2020-04-12] MEDS: MIDAZOLAM DRIP 50 mg/50mL 50 ML IV SCH ×3 (01:06→21:51)
[2020-04-12] MEDS: NOREPINEPHRINE BITARTRATE 16 MG in SODIUM CHL 0.9% 234 ML IV SCH ×2 (01:06→11:30)
[2020-04-12] MEDS: PROPOFOL 100 ML IV SCH ×5 (04:02→21:50)
[2020-04-12] MEDS: PHENYLEPHRINE INJ 40 MG in SODIUM CHL 0.9% 246 ML IV SCH ×2 (04:10→18:32)
[2020-04-12 04:43] LABS: Basophils # (auto) 0.1 10 ^3/uL (0-0.2); Eosinophils # (auto) 0.9 10 ^3/uL (0-0.8); Hematocrit 21.7 % (41.0-53.0); Hemoglobin 7.4 g/dL (13.5-17.5); Lymphocytes # (auto) 0.7 10 ^3/uL (0.4-5.4); Mean Corpuscular Hgb Conc. 34.2 g/dL (32.0-36.0)
[2020-04-12 04:47] LABS: Basophils % (auto) 0.8 % (0.0-2.0); Eosinophils % (auto) 10.3 % (0.0-7.0); Lymphocytes % (auto) 7.7 % (10.0-50.0); Mean Corpuscular Hemoglobin 30.1 pg (28.0-32.0); Monocytes # (auto) 0.8 10 ^3/uL (0-1.3); Monocytes % (auto) 8.6 % (0.0-12.0); Neutrophils # (auto) 6.5 10 ^3/uL (1.6-8.6); Neutrophils % (auto) 72.6 % (37.0-80.0); Nucleated Red Blood Cells % 1.4 %; Platelet Count (auto) 176 10^3/uL (140-450); Red Blood Cells 2.46 10^6/uL (4.5-5.90); Red Cell Distribution Width 17.7 % (11.8-14.3); White Blood Cell 8.9 10^3/uL (4.4-10.8)
[2020-04-12 05:12] LABS: Albumin 2.6 g/dL (3.4-5.0); BUN/Creatinine Ratio 13.6; Calcium 8.2 mg/dL (8.5-10.1)
[2020-04-12] MEDS: NEOMYCIN-POLYMY-DEXAMETH 0.1% OPTH(EYE) OINT 3.5GM EACHEYE SCH ×3 (06:00→21:46)
[2020-04-12] MEDS: AMPICILLIN 250 MG/5ML ORAL SUSP 200ML GT SCH ×3 (06:00→17:42)
[2020-04-12] MEDS: InsuLIN REG 1unit/0.01ml Soln (100units/ml) SC SCH ×4 (06:00→23:40)
[2020-04-12] MEDS: SODIUM CHLOR 0.9% PF (SALINE LOCK) 10ML VIAL/SYR IV SCH ×3 (06:23→21:46)
[2020-04-12] MEDS: ACCU-CHEK COMFORT CURVE STRIP VI SCH ×4 (06:23→23:40)
[2020-04-12] MEDS: fentaNYL Drip 2500mCg/250mlNS 250 ML IV SCH ×2 (06:25→21:50)
[2020-04-12] MEDS: BUDESONIDE (INHALATION) 0.5 MG/2 ML NEB NEB SCH ×2 (07:15→19:23)
[2020-04-12] MEDS: ALBUTEROL SULF 2.5 MG/0.5ML(0.5%) NEB SOLN NEB PRN ×2 (07:15→19:24)
[2020-04-12] MEDS ORDERED: POTASSIUM CHL 20MEQ/100ML 100 ML IV ONE (10:15)
[2020-04-12] MEDS: cefTRIAXone 1GM/50ML D5W 50 ML IV SCH (10:39)
[2020-04-12] MEDS: DOCUSATE ORAL LIQUID 100 MG/10 ML UD GT SCH ×2 (10:40→21:46)
[2020-04-12] MEDS: BUMETANIDE 2.5mg/10ml (0.25 mg/ml) INJ IV SCH (10:44)
[2020-04-12] MEDS: FAMOTIDINE (10MG/ML) 2ML VL IV SCH ×2 (10:44→21:46)
[2020-04-12] MEDS ORDERED: NOREPINEPHRINE 8 MG/250ML KIT 0 ML IV ONE (11:09)
[2020-04-12] MEDS: SODIUM FERR GLUC 62.5MG/5ML 125 MG in SODIUM CHL 0.9% 100 ML IV SCH (12:29)
[2020-04-13] VITALS (101 sets, daily range): BP systolic 83–145; BP diastolic 36–97
[2020-04-13] MEDS: NEOMYCIN-POLYMY-DEXAMETH 0.1% OPTH(EYE) OINT 3.5GM EACHEYE SCH ×3 (07:00→21:36)
[2020-04-13] MEDS: ACCU-CHEK COMFORT CURVE STRIP VI SCH ×3 (07:00→18:07)
[2020-04-13] MEDS: SODIUM CHLOR 0.9% PF (SALINE LOCK) 10ML VIAL/SYR IV SCH ×3 (07:44→21:36)
[2020-04-13] MEDS: InsuLIN REG 1unit/0.01ml Soln (100units/ml) SC SCH ×3 (07:45→18:07)
[2020-04-13] MEDS: cefTRIAXone 1GM/50ML D5W 50 ML IV SCH (08:44)
[2020-04-13] MEDS: DOCUSATE ORAL LIQUID 100 MG/10 ML UD GT SCH ×2 (09:47→21:36)
[2020-04-13] MEDS: FAMOTIDINE (10MG/ML) 2ML VL IV SCH ×2 (09:48→21:36)
[2020-04-13] MEDS: BUMETANIDE 2.5mg/10ml (0.25 mg/ml) INJ IV SCH (09:48)
[2020-04-13] MEDS: BUDESONIDE (INHALATION) 0.5 MG/2 ML NEB NEB SCH ×2 (10:13→18:35)
[2020-04-13 10:58] LABS: Basophils # (auto) 0.1 10 ^3/uL (0-0.2); Lymphocytes # (auto) 0.6 10 ^3/uL (0.4-5.4); Monocytes # (auto) 0.8 10 ^3/uL (0-1.3); Neutrophils # (auto) 7.7 10 ^3/uL (1.6-8.6)
[2020-04-13] MEDS ORDERED: HEPARIN 1,000 UNITS/ml 1ML VIAL IV ONE (11:00)
[2020-04-13 11:02] LABS: Basophils % (auto) 0.8 % (0.0-2.0); Eosinophils % (auto) 9.9 % (0.0-7.0); Hematocrit 23.3 % (41.0-53.0); Lymphocytes % (auto) 6.1 % (10.0-50.0); Mean Corpuscular Hemoglobin 30.2 pg (28.0-32.0); Mean Corpuscular Hgb Conc. 34.1 g/dL (32.0-36.0); Mean Corpuscular Volume 88.6 fL (80.0-100.0); Monocytes % (auto) 7.4 % (0.0-12.0); Neutrophils % (auto) 75.8 % (37.0-80.0); Nucleated Red Blood Cells % 0.4 %; Platelet Count (auto) 202 10^3/uL (140-450); Red Blood Cells 2.63 10^6/uL (4.5-5.90); Red Cell Distribution Width 18.1 % (11.8-14.3); White Blood Cell 10.2 10^3/uL (4.4-10.8)
[2020-04-13] MEDS: MIDAZOLAM DRIP 50 mg/50mL 50 ML IV SCH ×2 (11:20→18:30)
[2020-04-13 11:30] LABS: Albumin 2.7 g/dL (3.4-5.0); BUN/Creatinine Ratio 12.5; Bilirubin, Total 0.9 mg/dL (0.2-1.0); Calcium 8.1 mg/dL (8.5-10.1); Total Protein 6.4 g/dL (6.4-8.2)
[2020-04-13] MEDS: PROPOFOL 100 ML IV SCH ×4 (12:00→21:39)
[2020-04-13] MEDS: SODIUM FERR GLUC 62.5MG/5ML 125 MG in SODIUM CHL 0.9% 100 ML IV SCH (12:25)
[2020-04-13] MEDS ORDERED: POTASSIUM EFFERVESENT TAB 25 MEQ PO ONE (13:00)
[2020-04-13] MEDS: PHENYLEPHRINE INJ 40 MG in SODIUM CHL 0.9% 246 ML IV SCH (13:30)
[2020-04-13] MEDS: NOREPINEPHRINE BITARTRATE 16 MG in SODIUM CHL 0.9% 234 ML IV SCH (15:00)
[2020-04-13] MEDS: fentaNYL Drip 2500mCg/250mlNS 250 ML IV SCH (15:24)
[2020-04-13] MEDS: ALBUTEROL SULF 2.5 MG/0.5ML(0.5%) NEB SOLN NEB PRN (18:35)
[2020-04-13] MEDS ORDERED: EPOETIN ALFA 10,000 UNIT/1 ML VIAL SC ONE (21:00)
[2020-04-14] VITALS (89 sets, daily range): BP systolic 89–117; BP diastolic 50–76
[2020-04-14] MEDS: ACCU-CHEK COMFORT CURVE STRIP VI SCH ×5 (00:02→23:54)
[2020-04-14] MEDS: PROPOFOL 100 ML IV SCH ×5 (02:04→21:45)
[2020-04-14] MEDS: MIDAZOLAM DRIP 50 mg/50mL 50 ML IV SCH ×2 (04:03→11:00)
[2020-04-14] MEDS: InsuLIN REG 1unit/0.01ml Soln (100units/ml) SC SCH ×5 (06:00→23:53)
[2020-04-14] MEDS: NEOMYCIN-POLYMY-DEXAMETH 0.1% OPTH(EYE) OINT 3.5GM EACHEYE SCH ×3 (06:00→22:00)
[2020-04-14] MEDS: PHENYLEPHRINE INJ 40 MG in SODIUM CHL 0.9% 246 ML IV SCH (06:10)
[2020-04-14] MEDS: ALBUTEROL SULF 2.5 MG/0.5ML(0.5%) NEB SOLN NEB PRN ×2 (06:20→19:20)
[2020-04-14] MEDS: BUDESONIDE (INHALATION) 0.5 MG/2 ML NEB NEB SCH ×2 (06:20→19:20)
[2020-04-14] MEDS: SODIUM CHLOR 0.9% PF (SALINE LOCK) 10ML VIAL/SYR IV SCH ×3 (06:25→20:48)
[2020-04-14] MEDS: cefTRIAXone 1GM/50ML D5W 50 ML IV SCH (08:49)
[2020-04-14] MEDS: DOCUSATE ORAL LIQUID 100 MG/10 ML UD GT SCH ×2 (09:36→20:48)
[2020-04-14] MEDS: BUMETANIDE 2.5mg/10ml (0.25 mg/ml) INJ IV SCH (09:36)
[2020-04-14] MEDS: FAMOTIDINE (10MG/ML) 2ML VL IV SCH ×2 (09:37→20:48)
[2020-04-14] MEDS: SODIUM FERR GLUC 62.5MG/5ML 125 MG in SODIUM CHL 0.9% 100 ML IV SCH (12:22)
[2020-04-14] MEDS ORDERED: PROPOFOL 100 ML IV SCH (12:45)
[2020-04-14] MEDS: NOREPINEPHRINE BITARTRATE 16 MG in SODIUM CHL 0.9% 234 ML IV SCH (16:00)
[2020-04-14] MEDS: fentaNYL Drip 2500mCg/250mlNS 250 ML IV SCH (16:23)
[2020-04-15] VITALS (73 sets, daily range): BP systolic 84–136; BP diastolic 41–88
[2020-04-15] MEDS: MIDAZOLAM DRIP 50 mg/50mL 50 ML IV SCH ×2 (00:13→22:48)
[2020-04-15] MEDS: PROPOFOL 100 ML IV SCH ×4 (01:00→21:05)
[2020-04-15] MEDS: InsuLIN REG 1unit/0.01ml Soln (100units/ml) SC SCH ×3 (05:26→18:00)
[2020-04-15] MEDS: ACCU-CHEK COMFORT CURVE STRIP VI SCH ×3 (05:26→18:00)
[2020-04-15] MEDS: NEOMYCIN-POLYMY-DEXAMETH 0.1% OPTH(EYE) OINT 3.5GM EACHEYE SCH ×2 (05:26→14:00)
[2020-04-15 05:32] LABS: Hemoglobin 7.8 g/dL (13.5-17.5)
[2020-04-15 05:34] LABS: Hematocrit 22.9 % (41.0-53.0); Mean Corpuscular Hemoglobin 30.9 pg (28.0-32.0); Mean Corpuscular Hgb Conc. 33.8 g/dL (32.0-36.0); Mean Corpuscular Volume 91.4 fL (80.0-100.0); Platelet Count (auto) 193 10^3/uL (140-450); Red Blood Cells 2.51 10^6/uL (4.5-5.90); Red Cell Distribution Width 19.4 % (11.8-14.3); White Blood Cell 9.8 10^3/uL (4.4-10.8)
[2020-04-15 05:46] LABS: Basophils % (manual) 0 (0.0-2.0); Blast Cells 0; Metamyelocytes % 0; Myelocytes % 0; Promyelocytes % 0; Reactive Lymphocytes 0
[2020-04-15 05:53] LABS: BUN/Creatinine Ratio 13.3; Calcium 8.3 mg/dL (8.5-10.1)
[2020-04-15 06:54] LABS: Band Neutrophils % (manual) 15; Eosinophils % (manual) 16 (0-7); Lymphocytes % (manual) 3 (10.0-50.0); Monocytes % (manual) 7 (0-12)
[2020-04-15] MEDS: SODIUM CHLOR 0.9% PF (SALINE LOCK) 10ML VIAL/SYR IV SCH ×3 (08:50→21:04)
[2020-04-15] MEDS: cefTRIAXone 1GM/50ML D5W 50 ML IV SCH (08:55)
[2020-04-15] MEDS: DOCUSATE ORAL LIQUID 100 MG/10 ML UD GT SCH ×2 (10:00→21:04)
[2020-04-15] MEDS: ALBUTEROL SULF 2.5 MG/0.5ML(0.5%) NEB SOLN NEB PRN (10:19)
[2020-04-15] MEDS: BUDESONIDE (INHALATION) 0.5 MG/2 ML NEB NEB SCH (10:19)
[2020-04-15] MEDS: BUMETANIDE 2.5mg/10ml (0.25 mg/ml) INJ IV SCH (10:21)
[2020-04-15] MEDS: FAMOTIDINE (10MG/ML) 2ML VL IV SCH ×2 (10:21→21:04)
[2020-04-15] MEDS: SODIUM FERR GLUC 62.5MG/5ML 125 MG in SODIUM CHL 0.9% 100 ML IV SCH (12:01)
[2020-04-15] MEDS ORDERED: EPOETIN ALFA 10,000 UNIT/1 ML VIAL SC ONE (21:00)
[2020-04-16] VITALS (84 sets, daily range): BP systolic 55–108; BP diastolic 40–68
[2020-04-16] MEDS: ACCU-CHEK COMFORT CURVE STRIP VI SCH ×5 (00:28→23:49)
[2020-04-16] MEDS ORDERED: NOREPINEPHRINE BITARTRATE 2 ML IV ONE (00:41)
[2020-04-16] MEDS ORDERED: NOREPINEPHRINE 8 MG/250ML KIT 250 ML IV ONE (00:41)
[2020-04-16] MEDS: PROPOFOL 100 ML IV SCH ×6 (01:45→22:55)
[2020-04-16] MEDS: NOREPINEPHRINE BITARTRATE 16 MG in SODIUM CHL 0.9% 234 ML IV SCH ×2 (06:00→16:30)
[2020-04-16] MEDS: SODIUM CHLOR 0.9% PF (SALINE LOCK) 10ML VIAL/SYR IV SCH ×3 (06:00→22:00)
[2020-04-16] MEDS: InsuLIN REG 1unit/0.01ml Soln (100units/ml) SC SCH ×5 (06:00→23:49)
[2020-04-16] MEDS: BUMETANIDE 2.5mg/10ml (0.25 mg/ml) INJ IV SCH (08:54)
[2020-04-16] MEDS: FAMOTIDINE (10MG/ML) 2ML VL IV SCH ×2 (08:54→22:00)
[2020-04-16] MEDS: DOCUSATE ORAL LIQUID 100 MG/10 ML UD GT SCH ×2 (08:55→22:00)
[2020-04-16] MEDS: cefTRIAXone 1GM/50ML D5W 50 ML IV SCH (08:57)
[2020-04-16] MEDS: BUDESONIDE (INHALATION) 0.5 MG/2 ML NEB NEB SCH ×2 (09:43→22:50)
[2020-04-16] MEDS: ALBUTEROL SULF 2.5 MG/0.5ML(0.5%) NEB SOLN NEB PRN ×2 (09:43→22:50)
[2020-04-16] MEDS: fentaNYL Drip 2500mCg/250mlNS 250 ML IV SCH (10:12)
[2020-04-16] MEDS: SODIUM FERR GLUC 62.5MG/5ML 125 MG in SODIUM CHL 0.9% 100 ML IV SCH (12:03)
[2020-04-16] MEDS: MIDAZOLAM DRIP 50 mg/50mL 50 ML IV SCH ×2 (14:49→23:35)
[2020-04-17] VITALS (99 sets, daily range): BP systolic 82–112; BP diastolic 31–71
[2020-04-17] MEDS ORDERED: PHENYLEPHRINE IV 250 ML IV SCH (02:15)
[2020-04-17] MEDS: PROPOFOL 100 ML IV SCH ×5 (03:00→17:51)
[2020-04-17] MEDS: NOREPINEPHRINE BITARTRATE 16 MG in SODIUM CHL 0.9% 234 ML IV SCH (03:00)
[2020-04-17] MEDS: fentaNYL Drip 2500mCg/250mlNS 250 ML IV SCH ×2 (03:30→17:53)
[2020-04-17 04:16] LABS: Basophils # (auto) 0.1 10 ^3/uL (0-0.2); Lymphocytes # (auto) 1.1 10 ^3/uL (0.4-5.4); Monocytes # (auto) 1.4 10 ^3/uL (0-1.3); Red Blood Cells 2.03 10^6/uL (4.5-5.90)
[2020-04-17 04:17] LABS: Basophils % (auto) 0.9 % (0.0-2.0); Eosinophils % (auto) 6.4 % (0.0-7.0); Lymphocytes % (auto) 7.3 % (10.0-50.0); Mean Corpuscular Hemoglobin 30.5 pg (28.0-32.0); Mean Corpuscular Hgb Conc. 32.5 g/dL (32.0-36.0); Mean Corpuscular Volume 93.7 fL (80.0-100.0); Monocytes % (auto) 9.1 % (0.0-12.0); Neutrophils # (auto) 11.6 10 ^3/uL (1.6-8.6); Neutrophils % (auto) 76.3 % (37.0-80.0); Platelet Count (auto) 185 10^3/uL (140-450); Red Cell Distribution Width 19.8 % (11.8-14.3); White Blood Cell 15.2 10^3/uL (4.4-10.8)
[2020-04-17 04:35] LABS: Hemoglobin 6.2 g/dL (13.5-17.5)
[2020-04-17 04:37] LABS: Albumin 1.9 g/dL (3.4-5.0); BUN/Creatinine Ratio 13.5
[2020-04-17 04:40] LABS: Bilirubin, Total 0.7 mg/dL (0.2-1.0)
[2020-04-17] MEDS: ACETAMINOPHEN 650 mg PER 20.3 mL UD GT PRN ×3 (04:59→20:09)
[2020-04-17] MEDS: ACCU-CHEK COMFORT CURVE STRIP VI SCH ×3 (06:00→18:00)
[2020-04-17] MEDS: InsuLIN REG 1unit/0.01ml Soln (100units/ml) SC SCH ×3 (06:00→17:59)
[2020-04-17] MEDS: SODIUM CHLOR 0.9% PF (SALINE LOCK) 10ML VIAL/SYR IV SCH ×3 (06:00→21:09)
[2020-04-17] MEDS: DOCUSATE ORAL LIQUID 100 MG/10 ML UD GT SCH ×2 (10:00→21:08)
[2020-04-17] MEDS: BUMETANIDE 2.5mg/10ml (0.25 mg/ml) INJ IV SCH ×3 (10:00→17:59)
[2020-04-17] MEDS: BUDESONIDE (INHALATION) 0.5 MG/2 ML NEB NEB SCH ×2 (10:00→22:26)
[2020-04-17] MEDS: cefTRIAXone 1GM/50ML D5W 50 ML IV SCH (10:36)
[2020-04-17] MEDS: FAMOTIDINE (10MG/ML) 2ML VL IV SCH ×2 (10:36→21:09)
[2020-04-17] MEDS ORDERED: BUMETANIDE 2.5mg/10ml (0.25 mg/ml) INJ IV SCH (10:45)
[2020-04-17] MEDS: PHENYLEPHRINE INJ 40 MG in SODIUM CHL 0.9% 246 ML IV SCH ×3 (11:54→21:07)
[2020-04-17] MEDS: SODIUM FERR GLUC 62.5MG/5ML 125 MG in SODIUM CHL 0.9% 100 ML IV SCH (12:14)
[2020-04-17] MEDS: MIDAZOLAM DRIP 50 mg/50mL 50 ML IV SCH (15:19)
[2020-04-17 16:23] LABS: Creatinine, Urine 54 mg/dL (30.0-125.0); Sodium Urine 78 mmol/L (40-220)
[2020-04-17] MEDS ORDERED: NOREPINEPHRINE 8 MG/250ML KIT 250 ML IV ONE (20:31)
[2020-04-17] MEDS ORDERED: NOREPINEPHRINE BITARTRATE 2 ML IV ONE (20:31)
[2020-04-17] MEDS: ALBUTEROL SULF 2.5 MG/0.5ML(0.5%) NEB SOLN NEB PRN (22:26)
[2020-04-18] VITALS (89 sets, daily range): BP systolic 91–147; BP diastolic 54–97
[2020-04-18] MEDS: MIDAZOLAM DRIP 50 mg/50mL 50 ML IV SCH ×2 (00:29→00:35)
[2020-04-18] MEDS: PHENYLEPHRINE INJ 40 MG in SODIUM CHL 0.9% 246 ML IV SCH ×5 (00:36→19:31)
[2020-04-18] MEDS ORDERED: PHENYLEPHRINE HCL 10 MG/ML VL ONE (03:54)
[2020-04-18 04:25] LABS: Hemoglobin 7.2 g/dL (13.5-17.5)
[2020-04-18 04:29] LABS: Hematocrit 22.2 % (41.0-53.0); Mean Corpuscular Hemoglobin 30.4 pg (28.0-32.0); Mean Corpuscular Hgb Conc. 32.3 g/dL (32.0-36.0); Mean Corpuscular Volume 94.1 fL (80.0-100.0); Platelet Count (auto) 285 10^3/uL (140-450); Red Blood Cells 2.36 10^6/uL (4.5-5.90); White Blood Cell 21.2 10^3/uL (4.4-10.8)
[2020-04-18] MEDS: NOREPINEPHRINE BITARTRATE 16 MG in SODIUM CHL 0.9% 234 ML IV SCH ×2 (04:30→12:48)
[2020-04-18 04:38] LABS: INR 1.11 (0.9-1.15); Partial Thromboplastin Time 37.3 sec (23.0-31.2)
[2020-04-18 04:57] LABS: Albumin 2.4 g/dL (3.4-5.0); BUN/Creatinine Ratio 14.3; Bilirubin, Total 1.1 mg/dL (0.2-1.0); Calcium 8.8 mg/dL (8.5-10.1); Total Protein 6.3 g/dL (6.4-8.2)
[2020-04-18 05:51] LABS: Potassium 5.8 mmol/L (3.5-5.1)
[2020-04-18] MEDS: ACETAMINOPHEN 650 mg PER 20.3 mL UD GT PRN (05:52)
[2020-04-18] MEDS: BUMETANIDE 2.5mg/10ml (0.25 mg/ml) INJ IV SCH (05:53)
[2020-04-18] MEDS: PROPOFOL 100 ML IV SCH (05:53)
[2020-04-18] MEDS: SODIUM CHLOR 0.9% PF (SALINE LOCK) 10ML VIAL/SYR IV SCH ×3 (05:54→22:00)
[2020-04-18] MEDS: InsuLIN REG 1unit/0.01ml Soln (100units/ml) SC SCH ×5 (05:56→23:19)
[2020-04-18] MEDS: ACCU-CHEK COMFORT CURVE STRIP VI SCH ×4 (05:57→18:25)
[2020-04-18 06:25] LABS: Basophils % (manual) 0 (0.0-2.0); Blast Cells 0; Promyelocytes % 0; Reactive Lymphocytes 0
[2020-04-18] MEDS: BUDESONIDE (INHALATION) 0.5 MG/2 ML NEB NEB SCH ×2 (06:58→19:19)
[2020-04-18 07:48] LABS: Band Neutrophils % (manual) 8; Eosinophils % (manual) 1 (0-7); Lymphocytes % (manual) 3 (10.0-50.0); Metamyelocytes % 1; Monocytes % (manual) 11 (0-12); Myelocytes % 1
[2020-04-18] MEDS: VASOPRESSIN 50 UNITS in D5W 5% 247.5 ML IV SCH (09:00)
[2020-04-18] MEDS ORDERED: InsuLIN REG 1unit/0.01ml Soln (100units/ml) IV ONE (09:30)
[2020-04-18] MEDS ORDERED: SODIUM BICARBONATE 8.4 % INJ 50ML VIAL IV ONE (09:30)
[2020-04-18] MEDS: cefTRIAXone 1GM/50ML D5W 50 ML IV SCH (09:30)
[2020-04-18] MEDS ORDERED: CALCIUM CHL 100MG/ML 1,000 MG in D5W 5% 100 ML IV ONE (09:30)
[2020-04-18] MEDS ORDERED: DEXTROSE (50%) 50ML SYRG IV ONE (09:30)
[2020-04-18] MEDS: FAMOTIDINE (10MG/ML) 2ML VL IV SCH ×2 (09:33→21:05)
[2020-04-18] MEDS: DOCUSATE ORAL LIQUID 100 MG/10 ML UD GT SCH ×2 (10:16→21:05)
[2020-04-18] MEDS ORDERED: SODIUM ZIRCONIUM CYCL 10 GM PAK GT ONE (11:30)
[2020-04-18] MEDS: SODIUM FERR GLUC 62.5MG/5ML 125 MG in SODIUM CHL 0.9% 100 ML IV SCH (12:23)
[2020-04-18] MEDS: BUMETANIDE INJECTION 25 MG in GIVE UN-DILUTED 0 ML IV SCH (12:39)
[2020-04-18] MEDS: ALBUTEROL SULF 2.5 MG/0.5ML(0.5%) NEB SOLN NEB PRN (19:19)
[2020-04-18] MEDS: fentaNYL Drip 2500mCg/250mlNS 250 ML IV SCH (19:47)
[2020-04-19] VITALS (76 sets, daily range): BP systolic 102–143; BP diastolic 58–93
[2020-04-19] MEDS ORDERED: NOREPINEPHRINE 8 MG/250ML KIT 250 ML IV ONE (03:43)
[2020-04-19] MEDS ORDERED: NOREPINEPHRINE BITARTRATE 2 ML IV ONE (03:43)
[2020-04-19] MEDS ORDERED: NOREPINEPHRINE BITARTRATE 1 ML IV ONE (04:01)
[2020-04-19 05:06] LABS: Basophils # (auto) 0.1 10 ^3/uL (0-0.2); Basophils % (auto) 0.4 % (0.0-2.0); Eosinophils # (auto) 0.4 10 ^3/uL (0-0.8); Eosinophils % (auto) 2.2 % (0.0-7.0); Hematocrit 27.5 % (41.0-53.0); Hemoglobin 8.8 g/dL (13.5-17.5); Lymphocytes # (auto) 0.6 10 ^3/uL (0.4-5.4); Lymphocytes % (auto) 3.7 % (10.0-50.0); Mean Corpuscular Hemoglobin 30.1 pg (28.0-32.0); Mean Corpuscular Hgb Conc. 32.1 g/dL (32.0-36.0); Mean Corpuscular Volume 93.8 fL (80.0-100.0); Monocytes # (auto) 1.5 10 ^3/uL (0-1.3); Monocytes % (auto) 9.1 % (0.0-12.0); Neutrophils # (auto) 13.9 10 ^3/uL (1.6-8.6); Neutrophils % (auto) 84.6 % (37.0-80.0); Platelet Count (auto) 232 10^3/uL (140-450); Red Blood Cells 2.93 10^6/uL (4.5-5.90); Red Cell Distribution Width 18.9 % (11.8-14.3); White Blood Cell 16.4 10^3/uL (4.4-10.8)
[2020-04-19] MEDS: InsuLIN REG 1unit/0.01ml Soln (100units/ml) SC SCH ×4 (05:10→23:40)
[2020-04-19] MEDS: NOREPINEPHRINE BITARTRATE 16 MG in SODIUM CHL 0.9% 234 ML IV SCH ×2 (05:16→09:50)
[2020-04-19 05:35] LABS: Calcium 8.4 mg/dL (8.5-10.1); Potassium 4.6 mmol/L (3.5-5.1)
[2020-04-19 05:42] LABS: Albumin 2.4 g/dL (3.4-5.0); BUN/Creatinine Ratio 16.2; Total Protein 6.5 g/dL (6.4-8.2)
[2020-04-19] MEDS: ACCU-CHEK COMFORT CURVE STRIP VI SCH ×3 (06:00→23:40)
[2020-04-19] MEDS: SODIUM CHLOR 0.9% PF (SALINE LOCK) 10ML VIAL/SYR IV SCH ×3 (06:00→22:10)
[2020-04-19] MEDS: BUMETANIDE INJECTION 25 MG in GIVE UN-DILUTED 0 ML IV SCH (08:45)
[2020-04-19] MEDS: VASOPRESSIN 50 UNITS in D5W 5% 247.5 ML IV SCH (09:00)
[2020-04-19] MEDS: cefTRIAXone 1GM/50ML D5W 50 ML IV SCH (09:00)
[2020-04-19] MEDS: DOCUSATE ORAL LIQUID 100 MG/10 ML UD GT SCH ×2 (10:00→23:41)
[2020-04-19] MEDS: FAMOTIDINE (10MG/ML) 2ML VL IV SCH ×2 (10:00→22:09)
[2020-04-19] MEDS: PROPOFOL 100 ML IV SCH (11:10)
[2020-04-19] MEDS: MIDAZOLAM DRIP 50 mg/50mL 50 ML IV SCH (11:15)
[2020-04-19] MEDS: ALBUTEROL SULF 2.5 MG/0.5ML(0.5%) NEB SOLN NEB PRN ×2 (11:57→22:14)
[2020-04-19] MEDS: BUDESONIDE (INHALATION) 0.5 MG/2 ML NEB NEB SCH ×2 (11:57→22:13)
[2020-04-20] VITALS (53 sets, daily range): BP systolic 87–139; BP diastolic 44–80
[2020-04-20] MEDS: PHENYLEPHRINE INJ 40 MG in SODIUM CHL 0.9% 246 ML IV SCH ×2 (02:10→23:54)
[2020-04-20] MEDS: fentaNYL Drip 2500mCg/250mlNS 250 ML IV SCH (03:18)
[2020-04-20 04:19] LABS: Hematocrit 25.5 % (41.0-53.0); Hemoglobin 8.4 g/dL (13.5-17.5); Mean Corpuscular Hemoglobin 30.3 pg (28.0-32.0)
[2020-04-20 04:22] LABS: Mean Corpuscular Hgb Conc. 32.8 g/dL (32.0-36.0); Mean Corpuscular Volume 92.2 fL (80.0-100.0); Platelet Count (auto) 210 10^3/uL (140-450); Red Blood Cells 2.76 10^6/uL (4.5-5.90); Red Cell Distribution Width 18.2 % (11.8-14.3); White Blood Cell 12.8 10^3/uL (4.4-10.8)
[2020-04-20 04:24] LABS: Basophils % (manual) 0 (0.0-2.0); Blast Cells 0; Promyelocytes % 0; Reactive Lymphocytes 0
[2020-04-20] MEDS: SODIUM CHLOR 0.9% PF (SALINE LOCK) 10ML VIAL/SYR IV SCH ×2 (05:22→22:05)
[2020-04-20 05:23] LABS: Band Neutrophils % (manual) 53; Eosinophils % (manual) 7 (0-7); Lymphocytes % (manual) 6 (10.0-50.0); Metamyelocytes % 4; Monocytes % (manual) 10 (0-12); Myelocytes % 1
[2020-04-20] MEDS: NOREPINEPHRINE BITARTRATE 16 MG in SODIUM CHL 0.9% 234 ML IV SCH (05:24)
[2020-04-20] MEDS: InsuLIN REG 1unit/0.01ml Soln (100units/ml) SC SCH ×3 (06:00→23:51)
[2020-04-20] MEDS: ACCU-CHEK COMFORT CURVE STRIP VI SCH ×3 (06:56→23:52)
[2020-04-20] MEDS: VASOPRESSIN 50 UNITS in D5W 5% 247.5 ML IV SCH (09:00)
[2020-04-20] MEDS: cefTRIAXone 1GM/50ML D5W 50 ML IV SCH (09:00)
[2020-04-20] MEDS: DOCUSATE ORAL LIQUID 100 MG/10 ML UD GT SCH ×2 (10:00→22:06)
[2020-04-20] MEDS: FAMOTIDINE (10MG/ML) 2ML VL IV SCH ×2 (10:00→22:06)
[2020-04-20] MEDS: BUDESONIDE (INHALATION) 0.5 MG/2 ML NEB NEB SCH ×2 (14:41→19:05)
[2020-04-20] MEDS: ALBUTEROL SULF 2.5 MG/0.5ML(0.5%) NEB SOLN NEB PRN ×2 (14:41→19:05)
[2020-04-20] MEDS: PROPOFOL 100 ML IV SCH (20:00)
[2020-04-20] MEDS: MIDAZOLAM DRIP 50 mg/50mL 50 ML IV SCH (22:04)
[2020-04-21] VITALS (97 sets, daily range): BP systolic 83–124; BP diastolic 50–71
[2020-04-21 04:53] LABS: Hemoglobin 7.6 g/dL (13.5-17.5)
[2020-04-21 04:56] LABS: Hematocrit 23.2 % (41.0-53.0); Mean Corpuscular Hemoglobin 30.9 pg (28.0-32.0); Mean Corpuscular Hgb Conc. 32.8 g/dL (32.0-36.0); Mean Corpuscular Volume 94.2 fL (80.0-100.0); Platelet Count (auto) 165 10^3/uL (140-450); Red Blood Cells 2.47 10^6/uL (4.5-5.90); Red Cell Distribution Width 18.8 % (11.8-14.3); White Blood Cell 9.8 10^3/uL (4.4-10.8)
[2020-04-21 05:04] LABS: Basophils % (manual) 0 (0.0-2.0); Promyelocytes % 0; Reactive Lymphocytes 0
[2020-04-21 05:44] LABS: Band Neutrophils % (manual) 55; Blast Cells 1; Eosinophils % (manual) 2 (0-7); Lymphocytes % (manual) 7 (10.0-50.0); Metamyelocytes % 1; Monocytes % (manual) 6 (0-12); Myelocytes % 2
[2020-04-21] MEDS: MIDAZOLAM DRIP 50 mg/50mL 50 ML IV SCH ×2 (05:46→22:35)
[2020-04-21] MEDS: fentaNYL Drip 2500mCg/250mlNS 250 ML IV SCH (05:48)
[2020-04-21] MEDS: NOREPINEPHRINE BITARTRATE 16 MG in SODIUM CHL 0.9% 234 ML IV SCH ×3 (05:49→22:55)
[2020-04-21] MEDS: SODIUM CHLOR 0.9% PF (SALINE LOCK) 10ML VIAL/SYR IV SCH ×3 (06:41→23:55)
[2020-04-21] MEDS: InsuLIN REG 1unit/0.01ml Soln (100units/ml) SC SCH ×4 (06:42→23:55)
[2020-04-21] MEDS: ACCU-CHEK COMFORT CURVE STRIP VI SCH ×4 (06:43→23:56)
[2020-04-21] MEDS: VASOPRESSIN 50 UNITS in D5W 5% 247.5 ML IV SCH (09:00)
[2020-04-21] MEDS: cefTRIAXone 1GM/50ML D5W 50 ML IV SCH (09:37)
[2020-04-21] MEDS: DOCUSATE ORAL LIQUID 100 MG/10 ML UD GT SCH ×2 (10:00→23:55)
[2020-04-21] MEDS: FAMOTIDINE (10MG/ML) 2ML VL IV SCH ×2 (10:00→23:55)
[2020-04-21] MEDS: PROPOFOL 100 ML IV SCH (10:26)
[2020-04-21] MEDS: ALBUTEROL SULF 2.5 MG/0.5ML(0.5%) NEB SOLN NEB PRN ×2 (10:43→19:45)
[2020-04-21] MEDS: BUDESONIDE (INHALATION) 0.5 MG/2 ML NEB NEB SCH ×2 (10:43→19:45)
[2020-04-21] MEDS: PHENYLEPHRINE INJ 40 MG in SODIUM CHL 0.9% 246 ML IV SCH ×2 (11:30→22:52)
[2020-04-21 21:04] LABS: Calcium 8.6 mg/dL (8.5-10.1); Potassium 4.9 mmol/L (3.5-5.1)
[2020-04-22] VITALS (63 sets, daily range): BP systolic 0–111; BP diastolic 40–64
[2020-04-22 04:31] LABS: Hematocrit 25.9 % (41.0-53.0); Red Blood Cells 2.72 10^6/uL (4.5-5.90)
[2020-04-22 04:33] LABS: Hemoglobin 8.3 g/dL (13.5-17.5); Mean Corpuscular Hemoglobin 30.4 pg (28.0-32.0); Mean Corpuscular Hgb Conc. 31.9 g/dL (32.0-36.0); Mean Corpuscular Volume 95.3 fL (80.0-100.0); Platelet Count (auto) 218 10^3/uL (140-450); Red Cell Distribution Width 18.7 % (11.8-14.3); White Blood Cell 15.8 10^3/uL (4.4-10.8)
[2020-04-22 04:37] LABS: Basophils % (manual) 0 (0.0-2.0); Blast Cells 0; Promyelocytes % 0; Reactive Lymphocytes 0
[2020-04-22 04:55] LABS: BUN/Creatinine Ratio 16.5; Calcium 8.7 mg/dL (8.5-10.1); Potassium 5.1 mmol/L (3.5-5.1)
[2020-04-22 05:33] LABS: Band Neutrophils % (manual) 53; Eosinophils % (manual) 2 (0-7); Lymphocytes % (manual) 8 (10.0-50.0); Metamyelocytes % 9; Monocytes % (manual) 3 (0-12); Myelocytes % 1
[2020-04-22] MEDS: fentaNYL Drip 2500mCg/250mlNS 250 ML IV SCH ×2 (06:43→13:53)
[2020-04-22] MEDS: SODIUM CHLOR 0.9% PF (SALINE LOCK) 10ML VIAL/SYR IV SCH ×2 (06:44→14:00)
[2020-04-22] MEDS: PHENYLEPHRINE INJ 40 MG in SODIUM CHL 0.9% 246 ML IV SCH ×3 (06:44→14:35)
[2020-04-22] MEDS: InsuLIN REG 1unit/0.01ml Soln (100units/ml) SC SCH ×2 (06:45→11:12)
[2020-04-22] MEDS: ACCU-CHEK COMFORT CURVE STRIP VI SCH ×3 (06:46→18:21)
[2020-04-22] MEDS: MIDAZOLAM DRIP 50 mg/50mL 50 ML IV SCH ×2 (06:47→10:25)
[2020-04-22] MEDS: VASOPRESSIN 50 UNITS in D5W 5% 247.5 ML IV SCH (08:06)
[2020-04-22] MEDS: FAMOTIDINE (10MG/ML) 2ML VL IV SCH (10:00)
[2020-04-22] MEDS: PROPOFOL 100 ML IV SCH (10:04)
[2020-04-22] MEDS ORDERED: EPOETIN ALFA 10,000 UNIT/1 ML VIAL SC ONE (21:00)
== END 2020-04-22 18:42 | DRG 130 ==
LOC: ER 20:13 → EDBD 20:13 → TELE 20:14 → TELE-CENTR 02-14 18:45 → TELE-WESTW 02-23 17:38 → CATH ICU 03-01 19:08 → ICU WEST 03-02 09:14 → CATH ICU 03-25 17:25 → ICU WEST 04-19 09:07
PROVIDERS: ADMIT Nurse Practitioner Family; ATTEND Internal Medicine
PROC: XW033E5 Introduction of Remdesivir Anti-infective into Peripheral Vein, Percutaneous Approach, New Technology Group 5 (ICD-10-PCS; principal; 2020-02-15)
PROC: XW13325 Transfusion of Convalescent Plasma (Nonautologous) into Peripheral Vein, Percutaneous Approach, New Technology Group 5 (ICD-10-PCS; 2020-02-16)
PROC: 5A1955Z Respiratory Ventilation, Greater than 96 Consecutive Hours (ICD-10-PCS; 2020-03-01)
PROC: 0BH17EZ Insertion of Endotracheal Airway into Trachea, Via Natural or Artificial Opening (ICD-10-PCS; 2020-03-01)
PROC: 06HY33Z Insertion of Infusion Device into Lower Vein, Percutaneous Approach (ICD-10-PCS; 2020-03-01)
PROC: XW033H5 Introduction of Tocilizumab into Peripheral Vein, Percutaneous Approach, New Technology Group 5 (ICD-10-PCS; 2020-03-03)
PROC: 0BP1XDZ Removal of Intraluminal Device from Trachea, External Approach (ICD-10-PCS; 2020-03-16)
PROC: 5A1955Z Respiratory Ventilation, Greater than 96 Consecutive Hours (ICD-10-PCS; 2020-03-17)
PROC: 0BH17EZ Insertion of Endotracheal Airway into Trachea, Via Natural or Artificial Opening (ICD-10-PCS; 2020-03-17)
PROC: 02HV33Z Insertion of Infusion Device into Superior Vena Cava, Percutaneous Approach (ICD-10-PCS; 2020-03-24)
PROC: B548ZZA Ultrasonography of Superior Vena Cava, Guidance (ICD-10-PCS; 2020-03-24)
PROC: 5A1D70Z Performance of Urinary Filtration, Intermittent, Less than 6 Hours Per Day (ICD-10-PCS; 2020-03-25)
PROC: 5A1D70Z Performance of Urinary Filtration, Intermittent, Less than 6 Hours Per Day (ICD-10-PCS; 2020-03-27)
PROC: 5A1D70Z Performance of Urinary Filtration, Intermittent, Less than 6 Hours Per Day (ICD-10-PCS; 2020-03-29)
PROC: 30233N1 Transfusion of Nonautologous Red Blood Cells into Peripheral Vein, Percutaneous Approach (ICD-10-PCS; 2020-04-01)
PROC: 5A1D70Z Performance of Urinary Filtration, Intermittent, Less than 6 Hours Per Day (ICD-10-PCS; 2020-04-01)
PROC: 5A1D70Z Performance of Urinary Filtration, Intermittent, Less than 6 Hours Per Day (ICD-10-PCS; 2020-04-04)
PROC: B24BZZ4 Ultrasonography of Heart with Aorta, Transesophageal (ICD-10-PCS; 2020-04-05)
PROC: 5A1D70Z Performance of Urinary Filtration, Intermittent, Less than 6 Hours Per Day (ICD-10-PCS; 2020-04-06)
PROC: 5A1D70Z Performance of Urinary Filtration, Intermittent, Less than 6 Hours Per Day (ICD-10-PCS; 2020-04-09)
PROC: 5A1D70Z Performance of Urinary Filtration, Intermittent, Less than 6 Hours Per Day (ICD-10-PCS; 2020-04-11)
PROC: 5A1D70Z Performance of Urinary Filtration, Intermittent, Less than 6 Hours Per Day (ICD-10-PCS; 2020-04-13)
PROC: 5A1D70Z Performance of Urinary Filtration, Intermittent, Less than 6 Hours Per Day (ICD-10-PCS; 2020-04-15)
PROC: 5A1D70Z Performance of Urinary Filtration, Intermittent, Less than 6 Hours Per Day (ICD-10-PCS; 2020-04-18)
PROC: 5A1D70Z Performance of Urinary Filtration, Intermittent, Less than 6 Hours Per Day (ICD-10-PCS; 2020-04-20)
DX: U07.1 COVID-19 (principal); J12.82 Pneumonia due to coronavirus disease 2019; J80 Acute respiratory distress syndrome; E66.01 Morbid (severe) obesity due to excess calories; E44.0 Moderate protein-calorie malnutrition; E87.1 Hypo-osmolality and hyponatremia; G93.1 Anoxic brain damage, not elsewhere classified; E83.39 Other disorders of phosphorus metabolism; I26.99 Other pulmonary embolism without acute cor pulmonale; A41.89 Other specified sepsis; R65.21 Severe sepsis with septic shock; E87.0 Hyperosmolality and hypernatremia; B95.2 Enterococcus as the cause of diseases classified elsewhere; B96.20 Unspecified Escherichia coli [E. coli] as the cause of diseases classified elsewhere; Z66 Do not resuscitate; Z51.5 Encounter for palliative care; L89.159 Pressure ulcer of sacral region, unspecified stage; D50.0 Iron deficiency anemia secondary to blood loss (chronic); E87.5 Hyperkalemia; R73.9 Hyperglycemia, unspecified; I27.20 Pulmonary hypertension, unspecified; Z99.11 Dependence on respirator [ventilator] status; Z99.2 Dependence on renal dialysis; Z82.3 Family history of stroke; Z82.49 Family history of ischemic heart disease and other diseases of the circulatory system; Z79.899 Other long term (current) drug therapy; Z68.36 Body mass index [BMI] 36.0-36.9, adult
CPT/HCPCS: 36415; 36569; 36600; 71045; 71275; 76604; 76705; 76775; 80048; 80053; 80074; 81001; 82040; 82550; 82565; 82570; 82728; 82805; 82962; 83036; 83615; 83735; 83880; 84100; 84295; 84300; 84478; 84484; 84520; 84550; 85007; 85014; 85018; 85025; 85027; 85379; 85610; 85730; 86141; 86850; 86900; 86901; 86920; 87040; 87070; 87077; 87081; 87186; 87205; 87340; 87426; 90935; 93005; 93306; 93312; 93970; 94002; 94003; 94640; 96365; 96366; 96372; 96375; A4618; C9113; G0378; J0330; J0610; J0696; J0885; J1100; J1642; J1815; J1956; J2001; J2185; J2250; J2543; J2704; J3480; J3490; J7042; J7060; J7131; P9047